=== PATIENT | female | born 1950 | race Caucasian/White ===

== ENCOUNTER → 2021-08-28 11:44 | Outpatient (BNVA) | payer MEDICARE, OTHER, SELFPAY | PROVIDERS: Visit Provider Surgery | DX: Z20.822 Contact with and (suspected) exposure to COVID-19 (principal); Z11.52 Encounter for screening for COVID-19 | CPT/HCPCS: 87635 ==

== ENCOUNTER → 2021-10-09 08:06 | Outpatient (BNVA) | payer MEDICARE, OTHER, SELFPAY | PROVIDERS: Referring Provider Dermatology; Visit Provider Surgery | DX: K64.9 Unspecified hemorrhoids (principal); K92.1 Melena; F17.210 Nicotine dependence, cigarettes, uncomplicated | CPT/HCPCS: 99214 ==

== ENCOUNTER 2021-10-15 07:18 | Day surgery (SDC) | payer MEDICARE, OTHER, SELFPAY ==
[2021-10-14 11:26] VITALS: BMI 22.0
[2021-10-15] VITALS (7 sets, daily range): BP systolic 82–131; BP diastolic 58–87; PULSE 77–87; RESP 16–22; TEMP 36.2–36.7; O2SAT 94–100
[2021-10-15] MEDS: sodium chloride 0.9% 1,000 ML 30 ML IV (08:17)
--- NOTE | 2021-10-15 08:20 | ANES.PREANE2 ---
Pre-Anesthetic Assessment Height/Weight: Height 1.73 m Weight 65.771 kg Temp Pulse Resp BP Pulse Ox 97.2 F L 87 18 117/69 96 10/15/21 07:55 10/15/21 07:55 10/15/21 07:55 10/15/21 07:55 10/15/21 07:55 Preop Diagnosis: Hemorrhoids Operation Date: 10/15/21 09:05 Proposed Procedures p Hemorroidectomy 41688/k64.9(Not Applicable) - Shay Yang MD Familial anesthetic complications: None Was Beta Betito taken within 24 hours: N/A Was Clonidine taken within 24 hours: N/A Last intake: Intake Last Liquid Date 10/14/21 Last Liquid Time 19:00 Last Solid Date 10/14/21 Last Solid Time 17:00 Social No alcohol and No tobacco Exam alert, oriented x 3, clear to auscultation bilaterally and regular rate & rhythm Airway Mallampati: Class II Dentition: full Pulmonary None reported CV/HEM Hypertension None reported Hepatic None reported GI None reported Metabolic None reported Musc/skel R shoulder recently pinned, so unable to lay R side down during procedure per patient report Neuropsych None reported Anesthetic Plan ASA status: 2 Anesthesia: General Risk of > 500 ml blood loss (7ml/kg in children): No Medications/Allergies Home Medications Medication Instructions Recorded Confirmed Last Taken Type amlodipine 5 mg tablet 5 mg PO DAILY 08/04/21 10/14/21 09/30/21 History Allergies Allergy/AdvReac Type Severity Reaction Status Date / Time shellfish derived Allergy Unknown Unknown Verified 10/14/21 11:25 Penicillins Allergy Unknown Verified 10/14/21 11:25 Current Medications Generic Name Dose Route Start Last Admin Trade Name Freq PRN Reason Stop Dose Admin Sodium Chloride 1,000 mls @ 30 mls/hr 10/15/21 07:30 10/15/21 08:17 Sodium Chloride 0.9% IV 10/16/21 07:29 30 mls/hr .Q24H JACKIE Administration PFSH Anesthesia Medical History Hypertension Surgical History History of colonoscopy History of open reduction and internal fixation (ORIF) procedure right shoulder Social History Smoking and tobacco status: current some day smoker Data Anesthesia Cardiac Studies: No Data to Display
--- NOTE | 2021-10-15 08:42 | P.HP_ITS ---
Same Day Surgery H&P Indication for Procedure/HPI DATE OF PROCEDURE: October 15, 2021 CHIEF COMPLAINT/INDICATIONFOR SURGICAL PROCEDURE: Hemorrhoidectomy PREOP DIAGNOSIS: Hemorrhoids PLANNED PROCEDURE: Operation Date: 10/15/21 09:05 Proposed Procedures p Hemorroidectomy 86724/k64.9(Not Applicable) - Shay Yang MD Medications/Allergies* Home Medications Medication Instructions Recorded Confirmed Type amlodipine 5 mg tablet 5 mg PO DAILY 08/04/21 10/14/21 History Allergies/Adverse Reactions Allergy/AdvReac Type Severity Reaction Status Date / Time shellfish derived Allergy Unknown Unknown Verified 10/14/21 11:25 Penicillins Allergy Unknown Verified 10/14/21 11:25 Current Medications: Generic Name Dose Route Start Last Admin Trade Name Freq PRN Reason Stop Dose Admin Sodium Chloride 1,000 mls @ 30 mls/hr 10/15/21 07:30 10/15/21 08:17 Sodium Chloride 0.9% IV 10/16/21 07:29 30 mls/hr .Q24H JACKIE Administration Pertinent History/Comorbid Conditions* Medical History (Updated 08/04/21 @ 15:00 by Shay Yang MD) Hypertension Surgical History (Updated 10/09/21 @ 08:27 by Shay Yang MD) History of colonoscopy History of open reduction and internal fixation (ORIF) procedure right shoulder Social History Smoking and tobacco status: current some day smoker Pertinent Exam Findings alert, oriented x 3 and regular rate & rhythm Recommendations Surgery/Procedure today Coding Level of Care Code Acute First Officer And Flight Instructor for Jasson Pastrana
[2021-10-15] MEDS: Fleet Enema 133 mL Enema PR (09:00)
[2021-10-15] MEDS: ciprofloxacin 400 MG/200 ML PREMIX 200 MG IV (10:23)
--- NOTE | 2021-10-15 11:18 | PM.OP ---
Operative Report Date of procedure: October 15, 2021 Pre-op diagnosis: Hemorrhoids Post-op diagnosis: Grade 3 hemorrhoids Procedure done: Hemorrhoidectomy x2 Specimens removed/disposition: Hemorrhoidal columns from the right lateral and left lateral location Surgeon: Shay Yang Anesthesia: General Condition: stable Disposition: PACU Brief History: This is 71-year-old female who had an episode of severe hematochezia on 2 occasions with need for hospitalization and transfer to [place] on the second episode. Patient had a colonoscopy at that point and the bleeding was attributed to her hemorrhoids. On rectal exam in the office patient had decreased anal tone and I did discuss concerns about potentially developing incontinence in the future after hemorrhoidectomy Procedure: The patient was taken to the operating room and intubated under general anesthesia after IV antibiotic had been administered and placed in a prone jackknife position. The buttocks were taped apart. The perineum was prepped and draped in a sterile manner. A perianal block was performed using 10 cc of Exparel mixed with 10 cc of 0.5% Marcaine mixed with 10 cc of saline. Anoscope was introduced to examine the rectum and anal canal and 2 hemorrhoid pedicles were identified. The pedicle on the right side was grasped and the plane identified superficial to the internal sphincter muscle and internal hemorrhoids were excised with an energy device. The pedicle on the left side was grasped with Allis clamps and the plane was identified superficial to the internal sphincter muscle and the internal hemorrhoids were excised with an energy device. Hemostasis was ensured and a Adaptic gauze soaked in Vaseline was placed within the anal canal. Dressings were applied and the patient was extubated and transferred to recovery room in stable condition.
[2021-10-15] MEDS: HYDROcodone-acetaminophen 5-325 mg Tablet 1 TAB PO (11:32)
--- NOTE | 2021-10-15 13:23 | ANE.PACU2 ---
Inpatient post-anesthesia follow up: Airway intact: Yes Vital signs: Temperature 97.9 F Pulse Rate 79 Respiratory Rate 17 Blood Pressure 105/65 Pulse Oximetry 94 Oxygen Delivery Me thod Room Air Oxygen Flow Rate Fraction of Inspir ed Oxygen Hydration adequate: Yes Nausea and vomiting: No Pain level: 2 Mental status: Baseline
== END 2021-10-15 12:10 | disposition home or self-care (01) ==
PROVIDERS: Visit Provider Surgery
PROC: (CPT 46260; principal; 2021-10-15 09:05)
DX: K64.2 Third degree hemorrhoids (principal); I10 Essential (primary) hypertension; F17.210 Nicotine dependence, cigarettes, uncomplicated
CPT/HCPCS: 46260; 88304; C9290; J0330; J0744; J1100; J2370; J2405; J2704; J2710; J3010; J3490; J7030

== ENCOUNTER 2021-10-24 21:49 | Inpatient (IN) | payer MEDICARE, OTHER, SELFPAY ==
[2021-10-24 21:52] VITALS: BP 121/74; PULSE 87; RESP 20; TEMP 37.2; O2SAT 95; BMI 22.5
[2021-10-24 21:58] VITALS: BP 119/68; PULSE 91; RESP 27; O2SAT 96
--- NOTE | 2021-10-24 22:22 | ECG_ITS ---
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 Measurements Intervals [place] Rate: 89 P: 52 RI: 116 QRS: -30 QRSD: 96 T: 45 QT: 358 QTc: 438 Interpretive Statements SINUS RHYTHM WITH SHORT RI INTERVAL WITH OCCASIONAL VENTRICULAR PREMATURE COMPLEXES POSSIBLE LEFT ATRIAL ENLARGEMENT [-0.1mV P-WAVE IN V1/V2] BORDERLINE LEFT AXIS DEVIATION [QRS AXIS < -20] POSSIBLE RIGHT VENTRICULAR CONDUCTION DELAY [RSR (QR) IN V1/V2] No previous ECG available for comparison Electronically Signed On 10-25-2021 19:27:48 CDT by Joshua Capps M.D. [id number]
--- NOTE | 2021-10-24 22:22 | CTR_ITS ---
PROCEDURE INFORMATION: Exam: CT Head Without Contrast Exam date and time: 10/24/2021 10:43 PM Age: 71 years old Clinical indication: Weakness, extremity and weakness, facial; Right; Patient HX: 3 x transient episodes of facial droop rue weakness and confusion; Additional info: Symptoms of acute stroke TECHNIQUE: Imaging protocol: Computed tomography of the head without contrast. Radiation optimization: All CT scans at this facility use at least one of these dose optimization techniques: automated exposure control; mA and/or kV adjustment per patient size (includes targeted exams where dose is matched to clinical indication); or iterative reconstruction. COMPARISON: No relevant prior studies available. RADIATION DOSE METRICS: Total DLP (mGy-cm): 804.86 FINDINGS: Brain: Mild hypodense changes are noted in the bilateral periventricular regions, likely related to chronic microvascular ischemic disease. There is mild brain parenchymal atrophy. No acute intracranial hemorrhage, mass effect or midline shift. Cerebral ventricles: No pathologic ventricular dilatation. Paranasal sinuses: Minimal mucosal thickening left sphenoid sinus. Mastoid air cells: Visualized mastoid air cells are well aerated. Bones/joints: Unremarkable. No acute fracture. Soft tissues: Unremarkable. CT/CT head wo con* [id number] IMPRESSION: 1. No acute intracranial findings. 2. If there is a strong clinical concern for acute ischemia/infarct, short interval follow-up or MRI/diffusion imaging correlation may also be considered.
[2021-10-24 22:28] VITALS: BP 96/61; PULSE 88; RESP 28; O2SAT 96
--- NOTE | 2021-10-24 22:30 | ECG_ITS ---
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 Measurements Intervals [place] Rate: 84 P: 59 LA: 116 QRS: -33 QRSD: 101 T: 26 QT: 386 QTc: 458 Interpretive Statements SINUS RHYTHM WITH SHORT LA INTERVAL POSSIBLE LEFT ATRIAL ENLARGEMENT [-0.1mV P-WAVE IN V1/V2] LEFT AXIS DEVIATION [QRS AXIS < -30] INCOMPLETE RIGHT BUNDLE BRANCH BLOCK [90+ ms QRS DURATION, TERMINAL R IN V1/V2, 40+ ms S IN I/aVL/V4/V5/V6] MINIMAL ST DEPRESSION [0.025+ mV ST DEPRESSION] Compared to ECG 10/25/2021 00:25:52 Short LA interval now present Incomplete right bundle-branch block now present ST (T wave) deviation now present Ventricular premature complex(es) no longer present Electronically Signed On 10-25-2021 19:27:31 CDT by Joshua Capps M.D. [id number]
[2021-10-24 22:39] LABS: Basophils # 0.1 10^3/uL (0.0-0.1); Basophils % 0.8 %; Eosinophils # 0.1 10^3/uL (0.0-0.8); Eosinophils % 0.7 %; Hematocrit 27.3 % (37.0-47.0); Hemoglobin 8.2 g/dL (11.5-15.3); Lymphocytes # 2.1 10^3/uL (0.8-4.8); Lymphocytes % 15.4 %; Mean Corpuscular Hemoglobin 24.6 pg (28.0-34.0); Mean Platelet Volume 8.8 fL (7.4-10.4); Monocytes # 1.4 10^3/uL (0.2-0.9); Monocytes % 10.2 %; Neutrophils # 10.01 10^3/uL (1.8-7.7); Neutrophils % 72.2 %; Nucleated Red Blood Cells % 0 %; Platelet Count 528 10^3/cmm (130-400); Red Blood Count 3.33 10^6/uL (4.1-5.3); Red Cell Distribution Width 17.4 % (12.1-15.1); White Blood Count 13.8 10^3/uL (4.0-10.0)
[2021-10-24 22:40] LABS: Glucose Point of Care 122 mg/dL (70-110)
--- NOTE | 2021-10-24 22:40 | ED_ITS ---
Documented by User: DAVIS Winter 10/24/21 22:44 HPI - Neuro Symptoms/Deficit General: Chief Complaint: Neuro Symptoms/Deficit Stated Complaint: thought had stroke earlier Time Seen by Provider: 10/24/21 22:30 History of Present Illness: Patient is 1439 an episode of facial drooping right side and unable to use right arm. This lasted a couple minutes. Is about 30 minutes later she had episode where she was just babbling and able to understand her speech and this lasted for about a minute. Then went to bed later that evening woke up diaphoretic and rapid heart rate and pale and this was about 30 minutes ago. No neurological symptoms that time. Patient recently had a hemorrhoidectomy a week and a half ago. Before that she did bleed out and had a hemoglobin of 6 and recently received a unit of blood about 3 weeks ago. Fractured humerus about a month and a half ago. Currently takes amlodipine for high blood pressure. Patient presents without any deficits presently. Associated symptoms: Deny chest pain, headache(s), nausea or vomiting Review of Systems Narrative: Woke with diaphoresis, pale and rapid heart rate this evening about 2200. Patient early in afternoon at 1630 had an episode of right arm numbness and right facial drooping that lasted briefly. And then at 1700 had short amount of time just babbling. Const: Denies: fever(s), chills or body aches Eyes: Denies: eye discomfort ENMT: Denies: throat pain Card: Denies: chest pain Resp: Denies: dyspnea GI: Reports: other (Recent hemorrhoidectomy without any active bleeding since.); Denies: abdominal pain, nausea or vomiting Skin/Breast: Denies: rash Neuro: Reports: other (See narrative.); Denies: headache(s) Psych: Denies: depression or suicidal ideation [facility] ED PFSH: Medical History Hypertension Surgical History H/O hemorrhoidectomy (10/15/21) History of colonoscopy History of open reduction and internal fixation (ORIF) procedure right shoulder Social History Smoking and tobacco status: current some day smoker NIH stroke score NIHSS: Level Of Consciousness - 1a: 3 Level Of Consciousness Questions - 1b: Both Correct Level Of Consciousness Commands - 1c: Both Correct Best Gaze - 2: Normal Visual Martin - 3: No Visual Loss Facial Palsy - 4: Normal Motor Arm Right - 5: No Drift Motor Arm Left - 5: No Drift Motor Leg Right - 6: No Drift Motor Leg Left - 6: No Drift Limb Ataxia - 7: Absent Sensory - 8: Normal Best Language - 9: No Aphasia Physical Exam Const: COMMON NORMALS: no acute distress, patient oriented x3 and alert HENMT: COMMON NORMALS: normocephalic and external ears normal HEAD & SCALP: normocephalic EXTERNAL EAR: Yes external ears normal Eye: COMMON NORMALS: EOMs intact bilaterally Neck/C-Spine: COMMON NORMALS: no JVD Resp: COMMON NORMALS: normal respiratory effort and No use of accessory muscles Cardio: COMMON NORMALS: no JVD GI: INSPECTION: Yes normal to inspection Extremity: COMMON NORMALS: normal to inspection and full ROM Neuro: COMMON NORMALS: patient oriented x3 SENSORIUM/ORIENTATION: Yes alert OTHER: See NIH SS scale that was completed Psych: COMMON NORMALS: mental status grossly normal Skin: COMMON NORMALS: no rashes or lesions noted GENERAL SKIN EXAM: no rashes or lesions noted Course Vital Signs: Vital signs: Vital Signs Temperature 99.0 F 10/24/21 21:52 Pulse Rate 86 10/25/21 00:00 Respiratory Rate 18 10/25/21 00:00 Blood Pressure 109/67 10/25/21 00:00 Pulse Oximetry 97 10/25/21 00:00 MDM - Neuro Symptoms/Deficit Lab Data : 10/24/21 22:11 10/24/21 22:[address] 10/24/21 22:22 IMPRESSION: 1. No acute intracranial findings. 2. If there is a strong clinical concern for acute ischemia/infarct, short interval follow-up or MRI/diffusion imaging correlation may also be considered. Chest X-Ray 10/24/21 23:10 IMPRESSION: 1. Cardiomegaly and mild pulmonary vascular congestion. 2. Bilateral mid to lower lung field right greater left ground-glass airspace infiltrates. Laboratory Results WBC 13.8 10^3/uL (4.0-10.0) H 10/24/21 22:11 RBC 3.33 10^6/uL (4.1-5.3) L 10/24/21 22:11 Hgb 8.2 g/dL (11.5-15.3) L 10/24/21 22:11 Hct 27.3 % (37.0-47.0) L 10/24/21 22:11 MCV 82.0 fl (81-99) 10/24/21 22:11 MCH 24.6 pg (28.0-34.0) L 10/24/21 22:11 MCHC 30.0 g/dL (30.0-36.0) 10/24/21 22:11 RDW 17.4 % (12.1-15.1) H 10/24/21 22:11 Plt Count 528 10^3/cmm (130-400) H 10/24/21 22:11 MPV 8.8 fL (7.4-10.4) 10/24/21 22:11 Neut % (Auto) 72.2 % 10/24/21 22:11 Lymph % (Auto) 15.4 % 10/24/21 22:11 [place] % (Auto) 10.2 % 10/24/21 22:11 Eos % (Auto) 0.7 % 10/24/21 22:11 Baso % (Auto) 0.8 % 10/24/21 22:11 Neut # (Auto) 10.01 10^3/uL (1.8-7.7) H 10/24/21 22:11 Lymph # (Auto) 2.1 10^3/uL (0.8-4.8) 10/24/21 22:11 [place] # (Auto) 1.4 10^3/uL (0.2-0.9) H 10/24/21 22:11 Eos # (Auto) 0.1 10^3/uL (0.0-0.8) 10/24/21 22:11 Baso # (Auto) 0.1 10^3/uL (0.0-0.1) 10/24/21 22:11 Nucleated RBC % (auto) 0 % 10/24/21 22:11 Nucleated RBCs # 0.0 /100WBC 10/24/21 22:11 PT 13.70 SECONDS (12.1-14.9) 10/24/21 22:11 INR 1.02 (0.8-1.2) 10/24/21 22:11 APTT 30.6 SECONDS (23.9-36.7) 10/24/21 22:11 D-Dimer 3.52 ug/mIFEU (0-0.59) H 10/24/21 22:11 Sodium 127 mmol/L (136-145) L 10/24/21 22:11 Potassium 3.6 mmol/L (3.5-5.1) 10/24/21 22:11 Chloride 95 mmol/L (98-107) L 10/24/21 22:11 Carbon Dioxide 21 mmol/L (22-29) L 10/24/21 22:11 Anion Gap 14.6 (5-19) 10/24/21 22:11 BUN 13 mg/dL (8-23) 10/24/21 22:11 Creatinine 0.8 mg/dL (0.5-0.9) 10/24/21 22:11 GFR Calculation Not Reportable 10/24/21 22:11 Glucose 120 mg/dL (65-115) H 10/24/21 22:11 POC Glucose 122 mg/dL (70-110) H 10/24/21 22:36 Calculated Osmolality 265 mOsm/kg (285-295) L 10/24/21 22:11 Calcium 8.5 mg/dL (8.5-10.5) 10/24/21 22:11 Total Bilirubin 0.3 mg/dL (0.15-1.2) 10/24/21 22:11 AST 198 U/L (0-32) H 10/24/21 22:11 ALT 159 U/L (0-33) H 10/24/21 22:11 Alkaline Phosphatase 154 IU/L (35-105) H 10/24/21 22:11 Troponin T Baseline 809 ng/L (0-10) H* 10/24/21 22:11 NT-Pro-B Natriuret Pep 3674 pg/mL (0-125) H 10/24/21 22:11 Total Protein 7.5 g/dL (6.6-8.7) 10/24/21 22:11 Albumin 3.8 g/dL (3.5-5.2) 10/24/21 22:11 Globulin 3.7 g/dL (1.3-4.6) 10/24/21 22:11 Blood Type A Positive 10/24/21 00:00 Rho(D) Type Positive 10/24/21 00:00 Discharge Plan Discharge Patient Disposition: Admitted As Inpatient Admit Provider: Neena Lai Clinical Impression: Anemia, Elevated troponin, Brain TIA Coding Level of Care Code ED Cardiopulmonary Technologist Chief for Chg Fwd Exam Comprehensive Documented by User: Ezra Mack, 10/25/21 00:51 HPI - Neuro Symptoms/Deficit General: Chief Complaint: Neuro Symptoms/Deficit Stated Complaint: thought had stroke earlier Time Seen by Provider: 10/24/21 22:30 [facility] ED PFSH: Medical History Hypertension Surgical History H/O hemorrhoidectomy (10/15/21) History of colonoscopy History of open reduction and internal fixation (ORIF) procedure right shoulder Social History Smoking and tobacco status: current some day smoker Course Consultations: Consultation #1: kristal Vital Signs: Vital signs: Vital Signs Temperature 99.0 F 10/24/21 21:52 Pulse Rate 86 10/25/21 00:00 Respiratory Rate 18 10/25/21 00:00 Blood Pressure 109/67 10/25/21 00:00 Pulse Oximetry 97 10/25/21 00:00 MDM - Neuro Symptoms/Deficit Medical Decision Making This patient was originally seen by DAVIS Torres.? I agree with his histor y, evaluation, and treatment. I have evaluated the patient as well. This patient is neurologically intact currently. No signs of weakness, dizziness, or aphasia. She never complained of chest pain. She did complain of shortness of breath, which has essentially resolved. Her hemoglobin is 8.2. It was down to 6 before she was transfused prior to her hemorrhoidectomy. White blood cell count is 13.8, platelets 528, likely rebound reaction of bone marrow. Sodium 127, troponin is 809 this is with a normal creatinine of 0.[address] changes on EKG. Her D-dimer is significantly elevated. Chest x-ray shows some pulmonary vascular congestion/edema. CTA of the chest has been ordered, along with CTA of the brain and neck. She will be admitted for further work-up including repeat troponin etc. For now, Lovenox has not been ordered due to anemia, and history of bleeding, etc. Lab Data : 10/24/21 22:11 10/24/21 22:[address] 10/24/21 22:22 IMPRESSION: 1. No acute intracranial findings. 2. If there is a strong clinical concern for acute ischemia/infarct, short interval follow-up or MRI/diffusion imaging correlation may also be considered. Chest X-Ray 10/24/21 23:10
[2021-10-24 22:54] LABS: Alanine Aminotransferase 159 U/L (0-33); Albumin Level 3.8 g/dL (3.5-5.2); Alkaline Phosphatase 154 IU/L (35-105); Anion Gap 14.6 (5-19); Aspartate Amino Transferase 198 U/L (0-32); Blood Urea Nitrogen 13 mg/dL (8-23); Calcium 8.5 mg/dL (8.5-10.5); Carbon Dioxide 21 mmol/L (22-29); Chloride 95 mmol/L (98-107); Globulin 3.7 g/dL (1.3-4.6); Glucose 120 mg/dL (65-115); Osmolality Calculated 265 mOsm/kg (285-295); Potassium 3.6 mmol/L (3.5-5.1); Sodium 127 mmol/L (136-145); Total Bilirubin 0.3 mg/dL (0.15-1.2); Total Protein 7.5 g/dL (6.6-8.7)
[2021-10-24 22:58] VITALS: BP 122/67; PULSE 84; RESP 22; O2SAT 95
[2021-10-24 23:00] LABS: INR 1.02 (0.8-1.2); Partial Thromboplastin Time 30.6 SECONDS (23.9-36.7)
[2021-10-24 23:04] LABS: Troponin(5th) Baseline 809 ng/L (0-10)
--- NOTE | 2021-10-24 23:10 | XRR_ITS ---
PROCEDURE INFORMATION: Exam: XR Chest Exam date and time: 10/24/2021 11:33 PM Age: 71 years old Clinical indication: Dyspnea; Additional info: SOB TECHNIQUE: Imaging protocol: XR of the chest. Views: 1 view. COMPARISON: No relevant prior studies available. FINDINGS: Lungs: Bilateral mid to lower lung field right greater left ground-glass airspace infiltrates. Pleural spaces: Unremarkable. No pleural effusion. No pneumothorax. Heart/Mediastinum: Cardiomegaly and mild pulmonary vascular congestion. Bones/joints: Unremarkable. XR/XR chest 1V portable [id number] IMPRESSION: 1. Cardiomegaly and mild pulmonary vascular congestion. 2. Bilateral mid to lower lung field right greater left ground-glass airspace infiltrates.
[2021-10-24 23:30] VITALS: BP 118/74; PULSE 86; RESP 18; O2SAT 98
[2021-10-24 23:42] LABS: NT Pro B Type Natriuretic Pept 3674 pg/mL (0-125)
[2021-10-24 23:44] LABS: D Dimer 3.52 ug/mIFEU (0-0.59)
[2021-10-25] VITALS (14 sets, daily range): BP systolic 101–115; BP diastolic 57–74; PULSE 71–101; RESP 16–40; TEMP 36.4–36.7; O2SAT 95–100; BMI 22.5
[2021-10-25] MEDS: sodium chloride 0.9% 1,000 ML 75 ML IV (00:03)
--- NOTE | 2021-10-25 00:24 | PM.HP ---
Providers/Chief Complaint Chief Complaint: thought had stroke earlier History of Present Illness Miriam Courtney is a 71 year old female without significant past medical history presented today with chief complaint of strokelike symptoms. Around 4:30 PM her noticed that her face was deviating towards left side and she was not able to move her right arm this resolved within a minute. After 10 minutes when she was in the kitchen her noticed that she was not able to speak properly, speech was garbled, this resolved as well within a minute. Around 8:30 PM when she went to bed she woke up feeling very distressed, diaphoretic and experienced 1 brief episode of palpitation. This time her took her to the hospital for further evaluation. She did not experience any chest pain however endorsing midepigastric heartburn. No nausea, vomiting, shortness of breath, orthopnea or PND. No previous history of NC, CHF, coronary disease, stroke. Recently received blood transfusion for bleeding associated with hemorrhoids. Hemorrhoidectomy done by Dr. Yang. Hemoglobin has trickled down from 9-8 In the ER she has been diagnosed with NSTEMI high D-dimer requested CTA head neck and chest EKG without ischemic or infarctive changes, troponin significantly elevated 809 At the time of my evaluation there is no dysarthria, NIH 0, no focal deficit Patient is chest pain-free blood pressure 110/67 mmHg heart rate 84, sinus rhythm, she is saturating well on room air, not in any active distress Review of Systems Const: Denies: fever(s) or chills Eyes: Denies: change in vision ENMT: Denies: throat pain Card: Denies: chest pain Resp: Denies: dyspnea GI: Reports: heartburn; Denies: abdominal pain : Denies: flank pain Musc: Denies: neck pain Skin/Breast: Denies: rash Neuro: Reports: Slurred speech present Psych: Denies: anxiety Endo: Denies: polyuria Saturnino/Lymph: Denies: easy bruising All/Imm: Denies: urticaria Medications/Allergies Home Medications Medication Instructions Recorded Confirmed Last Taken Type amlodipine 5 mg tablet 5 mg PO DAILY 08/04/21 10/14/21 09/30/21 History hydrocodone 5 mg-acetaminophen 325 1 tab PO Q6H PRN #20 tab 10/15/21 Unknown Rx mg tablet lactulose 10 gram/15 mL oral 15 ml PO BID #237 ml 10/15/21 Unknown Rx solution Allergies Allergy/AdvReac Type Severity Reaction Status Date / Time shellfish derived Allergy Unknown Unknown Verified 10/24/21 21:58 Penicillins Allergy Unknown Verified 10/24/21 21:58 PFSH Acute PFSH: Medical History Hypertension Surgical History H/O hemorrhoidectomy (10/15/21) History of colonoscopy History of open reduction and internal fixation (ORIF) procedure right shoulder Family History Sister CAD (coronary artery disease) Artery disease NC at age 65 Social History Smoking and tobacco status: current some day smoker Substance/Drug Use: never Household members: spouse Housing: House Vitals/I&O/Wt Last Vital Signs Temp 99.0 F 10/24/21 21:52 Pulse 84 10/24/21 22:58 Resp 22 H 10/24/21 22:58 BP 122/67 10/24/21 22:58 Pulse Ox 95 10/24/21 22:58 Weight last 48 hrs Weight 67.132 kg Physical Exam Narrative: Very pleasant cooperative female No active chest pain Laying supine No orthopnea PND Saturating well on room air Abdomen distended nontender No signs of edema S1, S2 sinus rhythm no carotid bruit, no murmur appreciated No audible stridor or wheezing Nonfocal neuro exam NIH 0 EOMI, PERRLA No dysarthria Gait was not tested Data : 10/24/21 22:11 10/24/21 22:11 A&P Assessment and plan (1) Anemia: Status: Acute (2) Elevated troponin: Status: Acute (3) Brain TIA: Status: Acute (4) NSTEMI (non-ST elevated myocardial infarction): Status: Acute (5) Positive D dimer: Status: Acute (6) Elevated brain natriuretic peptide (BNP) level: Status: Acute Plan TIA ABCD 2 score is 2 Nonfocal neuro exam NIH 0 Patient is asymptomatic Requested CTA head and neck, CT head unremarkable Considering low NIH, I do not think MRI head would have significant merit for her treatment of TIA Check lipid profile, hemoglobin A1c Recent hemorrhoid bleed hemoglobin 8.2, judicious use of dual antiplatelet regimen, may only add Plavix for now and watch her hemoglobin PT evaluation in the morning Hyponatremia Patient looks euvolemic Check TSH, uric acid Serum and urine osmolarity She is not on any antidepressants Do not have previous sodium level to compare Will treat as chronic hyponatremia Would avoid IV fluids overnight and monitor sodium trend, not clear at the moment whether her neurological symptoms are related to hyponatremia solely NSTEMI Positive family history, Please consult cardiology in the morning, no urgent need for consultation overnight No active chest pain Complaining of mid epigastric heartburn GI cocktail, Protonix I will give her first dose of Lovenox monitor here hemoglobin if stays stable we will continue every 12 hours dose Added Plavix along atorvastatin, if blood pressure allows may add Toprol and lisinopril Echo in the morning to rule out wall motion abnormality High D-dimer Rule out PE, requested venous Doppler and CTA chest rule out PE No previous history of cancer mammogram colonoscopies unremarkable High BNP No active signs of/no clinical signs of heart failure We will follow-up with echo Rule out PE Will need extensive counseling on smoking cessation Admit as inpatient for NSTEMI work-up We will keep her n.p.o. in case she would require coronary angiogram in the morning, considering significant family history she might go for coronary angiogram N.p.o. 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
--- NOTE | 2021-10-25 00:28 | CTR_ITS ---
PROCEDURE INFORMATION: Exam: CT Angiography Head With Contrast, Arteriography Exam date and time: 10/25/2021 1:20 AM Age: 71 years old Clinical indication: Weakness and other: Aphasia; Additional info: Weakness, aphasia TECHNIQUE: Imaging protocol: Computed tomography angiography of the head with contrast. Exam focused on the arteries. 3D rendering (Not supervised by radiologist): MIP and/or 3D reconstructed images were created by the technologist. Radiation optimization: All CT scans at this facility use at least one of these dose optimization techniques: automated exposure control; mA and/or kV adjustment per patient size (includes targeted exams where dose is matched to clinical indication); or iterative reconstruction. Contrast material: OMNI 350; Contrast volume: 95 ml; Contrast route: INTRAVENOUS (IV); COMPARISON: CT head wo con* [id number] 10/24/2021 10:43 PM RADIATION DOSE METRICS: Total DLP (mGy-cm): 2290.78 FINDINGS: ANTERIOR CIRCULATION: Right internal carotid artery: Calcific plaque in the cavernous right ICA causing a minimal stenosis. No aneurysm. Right middle cerebral artery: No occlusion or significant stenosis. No aneurysm. Right anterior cerebral artery: No occlusion or significant stenosis. No aneurysm. Left internal carotid artery: Calcific plaque in the cavernous left ICA causing 2 moderate stenoses. No aneurysm. Left middle cerebral artery: No occlusion or significant stenosis. No aneurysm. Left anterior cerebral artery: No occlusion or significant stenosis. No aneurysm. POSTERIOR CIRCULATION: Right vertebral artery: Faint contrast in an apparent tiny right vertebral artery. Left vertebral artery: Prominent calcific plaque causing an 80-90% stenosis in the proximal left vertebral artery and an approximately 60% stenosis slightly more distally in this artery. Two minimal stenoses in the left vertebral artery distal to the takeoff of the patent left PICA. No aneurysm. Basilar artery: No occlusion or significant stenosis. No aneurysm. Right posterior cerebral artery: No occlusion or significant stenosis. No aneurysm. Left posterior cerebral artery: No occlusion or significant stenosis. No aneurysm. Left posterior communicating artery: Small posterior communicating artery bilaterally. Veins: Major venous sinuses patent. Brain: No abnormal enhancement in the brain. Cerebral ventricles: Unchanged. Bones/joints: 15 mm lytic mass in the right frontal bone. No other apparent bony mass. Mastoid air cells: Still no apparent mastoid disease. Soft tissues: Unremarkable. Paranasal sinuses: Continued slight mucosal thickening in a few sinuses. Still no air-fluid levels. PROCEDURE INFORMATION: Exam: CT Angiography Neck With Contrast Exam date and time: 10/25/2021 1:20 AM Age: 71 years old Clinical indication: Weakness and other: Aphasia; Additional info: Weakness, aphasia TECHNIQUE: Imaging protocol: Computed tomography angiography of the neck with contrast. 3D rendering (Not supervised by radiologist): MIP and/or 3D reconstructed images were created by the technologist. Radiation optimization: All CT scans at this facility use at least one of these dose optimization techniques: automated exposure control; mA and/or kV adjustment per patient size (includes targeted exams where dose is matched to clinical indication); or iterative reconstruction. Contrast material: OMNI 350; Contrast volume: 95 ml; Contrast route: INTRAVENOUS (IV); COMPARISON: CT head wo con* [id number] 10/24/2021 10:43 PM RADIATION DOSE METRICS: Total DLP (mGy-cm): 2290.78 FINDINGS: Right common carotid artery: No stenosis. No dissection or occlusion. Right internal carotid artery: Calcific plaque causing an approximately 80% stenosis of the origin of the right internal carotid artery and a 60-70% stenosis a short distance superiorly in this artery. Right external carotid artery: Mild stenosis of the origin of the right ECA. Left common carotid artery: Probable minimal stenosis of the origin of the left common carotid artery despite motion artifact. No significant stenosis elsewhere in this artery. Left internal carotid artery: Approximately 80% stenosis of the origin of the left ICA. Left external carotid artery: Mild stenosis of the origin of the left ECA. Right vertebral artery: No normal right vertebral artery. Slight enhancement in a tiny right vertebral artery or collateral vessel extending superiorly in the foramina from the C4-C5 level to the C2 level. Left vertebral artery: Two mild stenoses in the proximal left vertebral artery. Mild stenosis in this artery at the C6-C7 level, also. Scattered calcific plaque throughout this artery. Epiglottis: Density of 80 HU in the 14 x 10 mm mass anterior to the left epiglottis indenting the laryngeal vestibule. Soft tissues: No significant soft tissue swelling. Bones/joints: Old slight anterior wedging of T3 and T4. Slight spondylolisthesis at C3-C4 through C5-C6 and C7-T1. Prominent C6-C7 disc degeneration and a somewhat less disc narrowing at C4-C5 and C5-C6. Shallow central focal disc protrusion at C3-C4 causing no significant canal stenosis. Questionable annular bulging or a shallow central focal disc protrusion at C4-C5 causing no significant canal stenosis. Small central focal disc protrusion and probable annular bulging at C5-C6 causing mild canal stenosis. Lungs: Numerous centrilobular and paraseptal blebs in the upper lungs. Increased interstitial markings in both lung apices. Two 3 mm noncalcified adjacent nodules in the right lung apex. CT/CT angio headneck* [id number] IMPRESSION: 1. Faint contrast in an apparent tiny right vertebral artery. Two prominent stenoses in the left vertebral artery. Two moderate stenoses in the left ICA. Other stenoses detailed above. 2. 15 mm lytic mass in the right frontal bone. IMPRESSION: 1. No normal right vertebral artery consistent with occlusion of at least its proximal aspect. Questionable enhancement in a tiny right vertebral artery or collateral vessel in the upper cervical spine. Multiple mild stenoses in the left vertebral artery. 2. Approximately 80% and 60-70% stenoses in the proximal right ICA. Approximately 80% stenosis of the origin of the left ICA as well. 3. Mass anterior to the left epiglottis, cause unclear. 4. Emphysema. Increased interstitial markings in both lung apices such that pulmonary edema not excluded. Two 3 mm nodules in the right lung apex. For patients at low risk (minimal or absent history of smoking and of other known risk factors), no routine follow-up is indicated. For patients at high risk (history of smoking or of other known risk factors), consider optional CT Chest at 12 months. (Reference: Austen) 5. Chronic spinal disease detailed above. REFERENCES: 1. [place]en H, et al. Guidelines for Management of Incidental Pulmonary Nodules Detected on CT Images: From the Fleischner Society 2017. Radiology. 2017;284(1):228-243. 2. NASCET CRITERIA. The degree of internal carotid artery stenosis is based on NASCET criteria. Normal is no stenosis. Mild is less than 50% stenosis. Moderate is 50-69% stenosis. Severe is 70% to 99% stenosis. Total occlusion is no detectable patent lumen.
--- NOTE | 2021-10-25 00:28 | CTR_ITS ---
PROCEDURE INFORMATION: Exam: CTA Chest With Contrast Exam date and time: 10/25/2021 1:24 AM Age: 71 years old Clinical indication: Abnormal findings; Abnormal diagnostic tests; Elevated d-dimer; Dyspnea; Additional info: SOB, elevated d dimer, per kristal TECHNIQUE: Imaging protocol: Computed tomographic angiography of the chest with contrast. 3D rendering (Not supervised by radiologist): MIP and/or 3D reconstructed images were created by the technologist. Radiation optimization: All CT scans at this facility use at least one of these dose optimization techniques: automated exposure control; mA and/or kV adjustment per patient size (includes targeted exams where dose is matched to clinical indication); or iterative reconstruction. Contrast material: OMNI 350; Contrast volume: 75 ml; Contrast route: INTRAVENOUS (IV); COMPARISON: CR (CHEST, ) 10/24/2021 11:33 PM RADIATION DOSE METRICS: Total DLP (mGy-cm): 596.75 FINDINGS: Pulmonary arteries: Pulmonary emboli noted in a right middle lobe segmental pulmonary artery (series 2, image 264), a right lower lobe segmental pulmonary artery (series 2, image 304), and a left lower lobe segmental pulmonary artery (series 2, image 23). Aorta: No thoracic aortic aneurysm. Partially visualized abdominal aortic aneurysm measuring 4.1 cm x 3.3 cm on series 2, image 532. Lungs: Marked emphysematous changes of both lungs. Small calcified granuloma in the right lower lobe medially. Mild patchy atelectasis scattered throughout both lungs (primarily peripherally). Pleural spaces: No pneumothorax or pleural effusion. Heart: Heart size within normal limits. Right ventricle / left ventricle ratio is approximately 0.9, within normal limits (no right heart strain pattern). Lymph nodes: No enlarged or abnormal appearing mediastinal/hilar lymph nodes identified. Bones/joints: Prominent Schmorl's node in the superior endplate of L1. Metallic hardware noted in the right proximal humerus. Soft tissues: Unremarkable. Other findings: Images of the upper abdomen were reviewed. Diffuse fatty infiltration of the liver. There is a 1 cm hypodensity in the left hepatic lobe on series 2, image 370, etiology indeterminate (possibly a cyst). There is a 0.8 cm probable cyst in the right mid kidney on series 2, image 493. There is a 3.3 cm probable cyst in the left mid kidney. There is a 2.3 cm x 2.0 cm wedge-shaped hypodensity in the left kidney upper pole on series 2, image 170, consistent with a renal infarct. CT/CT angio chest PE protcl [id number] IMPRESSION: 1. Pulmonary emboli noted in a right middle lobe segmental pulmonary artery, right lower lobe segmental pulmonary artery, and a left lower lobe segmental pulmonary artery. 2. 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 3. Partially visualized abdominal aortic aneurysm measuring 4.1 cm x 3.3 cm. COMMENTS: Consistent with the [place] [employer]'s Incidental Findings Committee white paper (J Am Tiffany Radiol 2018): Any incidental renal lesion less than 1 cm or classified as too small to characterize, or any incidental cystic renal lesion characterized as simple-appearing, is likely benign. No follow-up imaging is recommended for these lesions per consensus recommendations based on imaging criteria.
--- NOTE | 2021-10-25 00:30 | ECG_ITS ---
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 Measurements Intervals [place] Rate: 84 P: 51 LA: 120 QRS: -22 QRSD: 89 T: 44 QT: 367 QTc: 434 Interpretive Statements SINUS RHYTHM WITH OCCASIONAL VENTRICULAR PREMATURE COMPLEXES POSSIBLE LEFT ATRIAL ENLARGEMENT [-0.1mV P-WAVE IN V1/V2] BORDERLINE LEFT AXIS DEVIATION [QRS AXIS < -20] POSSIBLE RIGHT VENTRICULAR CONDUCTION DELAY [RSR (QR) IN V1/V2] Compared to ECG 10/24/2021 22:32:40 Short LA interval no longer present Electronically Signed On 10-25-2021 19:34:03 CDT by Joshua Capps M.D. [id number]
--- NOTE | 2021-10-25 00:39 | USCV_ITS ---
Miriam Courtney Age: 71 Gender: F : 1950 Exam Date: 10/25/2021 03:15 Ordering Phys: Neena Lai MD Technologist: Ron Smith Exam Location: [facility] Indication: nstemi BP: 112 / 74 HR: 83 Rhythm: Sinus Technical Quality: Adequate MEASUREMENTS (Male / Female) Normal Values 2D ECHO LV Diastolic Diameter PLAX 3.9 cm 4.2 - 5.9 / 3.9 - 5.3 cm LV Systolic Diameter PLAX 3.1 cm IVS Diastolic Thickness 1.4 cm 0.6 - 1.0 / 0.6 - 0.9 cm IVS Systolic Thickness 1.3 cm LVPW Diastolic Thickness 1.6 cm 0.6 - 1.0 / 0.6 - 0.9 cm LVPW Systolic Thickness 1.5 cm LVOT Diameter 2.0 cm LV Ejection Fraction 2D Teich 28.1 % LV Ejection Fraction MOD 2C 63.6 % LV Ejection Fraction 2C AL 65.3 % LA Diameter 2.4 cm LA Width 4.6 cm LA Height 5.0 cm RA Width 3.0 cm RA Height 4.5 cm Aorta at Sinotubular Diameter 2.6 cm M-MODE Aortic Annulus Diameter 3.1 cm LA Ao Ratio MM 0.9 MV E Point Septal Separation 0.4 cm DOPPLER AV Peak Velocity 150.3 cm/s LVOT Peak Velocity 96.3 cm/s AV Area Cont Eq vti 2.3 cm squared AV Area Cont Eq pk 2.1 cm squared MV Area PHT 4.9 cm squared Mitral E to A Ratio 3.4 MV E' Velocity 90.0 cm/s Mitral E to MV E' Ratio 14.4 Mitral E to LV E' Lateral Ratio 13.2 Mitral E to LV E' Septal Ratio 16.1 Right Atrial Pressure 3.0 mmHg PV Peak Velocity 114.0 cm/s FINDINGS Left Ventricle Normal left ventricular size. LV systolic function is normal with EF of 55-60%. No regional wall motion abnormalities Right Ventricle The right ventricle is normal in size and function. Right Atrium The right atrium is normal in size. Left Atrium The left atrium is normal in size. Mitral Valve Mild mitral annular calcification without significant stenosis or prolapse. There is moderate mitral regurgitation. Aortic Valve Structurally normal aortic valve without significant sclerosis or stenosis. There is no aortic regurgitation. Tricuspid Valve Structurally normal tricuspid valve without significant stenosis. Trace tricuspid regurgitation. Pulmonary artery systolic pressure is normal. Pulmonic Valve Structurally normal pulmonic valve without significant stenosis. There is no pulmonic regurgitation. Pericardium Normal pericardium without effusion. Aorta Normal ascending aorta dimension. CONCLUSIONS LV systolic function is normal with EF of 55-60% Mild mitral annular calcification. Moderate mitral regurgitation Trace tricuspid regurgitation No comparison studies are available Joshua Capps MD (Electronically Signed) Final Date: 25 October 2021 12:27 S
[2021-10-25] MEDS: iodixanol 320 mg/mL 100mL Btl IV ×2 (01:21→01:35)
[2021-10-25 01:30] LABS: Troponin 5 2HR 694.3 ng/L (0-10)
--- NOTE | 2021-10-25 01:47 | PC.NURSE ---
Pt was in transport to floor when she had a similar episode of her TIA with right upper extremity weakness confusion SHOB word salad. This lasted for approx 90-120 secs. Pt was brought back to room and had repeat EKG performed. Dr Mack and Monica at bedside aslisbeth. Once EKG completed and pt returned to normal pt now ready to go to floor
[2021-10-25] MEDS: enoxaparin 80 mg/0.8 mL Syringe 70 MG SUBCUT (02:12)
[2021-10-25] MEDS: clopidogrel 300 mg Tablet PO (02:12)
--- NOTE | 2021-10-25 02:28 | USR_ITS ---
PROCEDURE INFORMATION: Exam: US Duplex Lower Extremity Veins, Bilateral Exam date and time: 10/25/2021 9:46 AM Age: 71 years old Clinical indication: Other: Pe and CVA; Patient HX: PT had seizures and on arrival found to have pe's and CVA. Also mass on esoph. ; Additional info: TIA dimer high, patient requested exam be done at a later time @[id number] TECHNIQUE: Imaging protocol: Real-time Duplex ultrasound of the bilateral extremities with 2-D jensen scale, color Doppler flow and spectral waveform analysis with image documentation. Complete exam focused on the bilateral lower extremity veins. COMPARISON: No relevant prior studies available. FINDINGS: Right deep veins: There is intraluminal thrombus present in the right peroneal vein this finding may be subacute. The common femoral, femoral, proximal profunda femoral and popliteal veins are patent without thrombus. Normal Doppler waveforms. Normal compressibility and/or augmentation response. The anterior tibial and posterior tibial veins are clear. The common femoral, femoral, and proximal profunda femoral veins are patent without thrombus. Normal Doppler waveforms. Normal compressibility and/or augmentation response. Right superficial veins: Saphenofemoral junction is patent without thrombus. Left deep veins: There is intraluminal thrombus in the left popliteal, peroneal, and ATV. Left superficial veins: Saphenofemoral junction is patent without thrombus. Soft tissues: Unremarkable. US/[place] [id number] IMPRESSION: 1. Positive for intraluminal thrombus right peroneal vein. 2. Positive for intraluminal thrombus left popliteal vein, peroneal vein, and ATV.
[2021-10-25] MEDS: lidocaine 2% viscous 15 ML, aluminum-mag hydrox-simethicon 30 ML, sucralfate oral liq 1 GM PO (02:36)
--- NOTE | 2021-10-25 04:30 | ECG_ITS ---
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 Measurements Intervals [place] Rate: 90 P: 59 ID: [id number] QRS: -27 QRSD: 93 T: 47 QT: 359 QTc: 441 Interpretive Statements SINUS RHYTHM WITH OCCASIONAL VENTRICULAR PREMATURE COMPLEXES WITH OCCASIONAL SUPRAVENTRICULAR PREMATURE COMPLEXES POSSIBLE RIGHT VENTRICULAR CONDUCTION DELAY [RSR (QR) IN V1/V2] SEPTAL MYOCARDIAL INFARCTION , OF INDETERMINATE AGE [40+ ms Q WAVE IN V1/V2] Compared to ECG 10/25/2021 01:39:46 Ventricular premature complex(es) now present Myocardial infarct finding now present Short ID interval no longer present Left-axis deviation no longer present Incomplete right bundle-branch block no longer present ST (T wave) deviation no longer present Electronically Signed On 10-25-2021 19:32:45 CDT by Joshua Capps M.D. [id number]
[2021-10-25 04:48] LABS: Basophils # 0.1 10^3/uL (0.0-0.1); Basophils % 0.6 %; Eosinophils # 0.1 10^3/uL (0.0-0.8); Hemoglobin 8.5 g/dL (11.5-15.3); Lymphocytes # 1.9 10^3/uL (0.8-4.8); Lymphocytes % 15.4 %; Mean Corpuscular HGB Conc 29.3 g/dL (30.0-36.0); Mean Corpuscular Hemoglobin 24.6 pg (28.0-34.0); Mean Corpuscular Volume 83.8 fl (81-99); Mean Platelet Volume 8.9 fL (7.4-10.4); Monocytes # 1.1 10^3/uL (0.2-0.9); Monocytes % 8.8 %; Neutrophils % 73.5 %; Nucleated Red Blood Cells % 0 %; Platelet Count 554 10^3/cmm (130-400); Red Blood Count 3.46 10^6/uL (4.1-5.3); Red Cell Distribution Width 17.6 % (12.1-15.1); White Blood Count 12.1 10^3/uL (4.0-10.0)
[2021-10-25 04:58] LABS: Estmated Average Glucose 100; Hemoglobin A1C 5.1 % (4.0-6.0)
[2021-10-25 05:17] LABS: Anion Gap 18.2 (5-19); Blood Urea Nitrogen 11 mg/dL (8-23); Carbon Dioxide 19 mmol/L (22-29); Chloride 99 mmol/L (98-107); Chol HDL Ratio 3.42 mg/dL (0.0-4.40); Cholesterol 178 mg/dL (0-200); Glucose 98 mg/dL (65-115); HDL Cholesterol 52 mg/dL (60-100); LDL Cholesterol Calculated 110 mg/dL (50-129); LDL HDL Ratio 2.12 RATIO (0.00-3.22); Magnesium 2.1 mg/dL (1.7-2.3); Osmolality Calculated 273 mOsm/kg (285-295); Potassium 4.2 mmol/L (3.5-5.1); Sodium 132 mmol/L (136-145); Thyroid Stimulating Hormone 2.62 uIU/mL (0.27-4.20); Triglycerides 82 mg/dL (0-150)
[2021-10-25 05:41] LABS: Troponin 5 6HR 759.5 ng/L (0-10)
[2021-10-25] MEDS: morphine 4 mg/mL SDV 1 mL 2 MG IVP (06:24)
[2021-10-25] MEDS: pantoprazole DR 40 mg Tablet PO ×2 (09:24→17:58)
[2021-10-25] MEDS: clopidogrel 75 mg Tablet PO (09:24)
[2021-10-25 10:26] LABS: Iron 23 ug/dL (37-145)
[2021-10-25 10:34] LABS: Percent Saturation 6.2 % (20-50); Total Iron Binding Capacity 368 mcg/dl; Unsaturated Iron Binding 345 ug/dL (112-347)
--- NOTE | 2021-10-25 11:13 | US_ITS ---
WS: [id number] THYROID ULTRASOUND HISTORY: possible mass COMPARISON: None available. Right lobe: 1.0 cm x 1.9 cm x 4.0 cm (w x ap x l). Volume: 4.0 cm3. Normal size and echotexture. No significant are dominant nodules are present. Left lobe: 1.6 cm x 1.6 cm x 4.1 cm (w x ap x l). Volume: 5.7 cm3. Normal size and echotexture. No significant or dominant nodules are present. Isthmus: 0.3 cm. US/US thyroid [id number] IMPRESSION: Normal thyroid ultrasound.
--- NOTE | 2021-10-25 11:13 | CTR_ITS ---
Calmed are are a a a a PROCEDURE INFORMATION: Exam: CT Chest Without Contrast; Diagnostic Exam date and time: 10/25/2021 3:03 PM Age: 71 years old Clinical indication: Prior surgery; Surgery date: 1-6 months; Surgery type: R shoulder; Patient HX: Anemia, pe, recent shoulder surgery; Additional info: R/O possible malignancy TECHNIQUE: Imaging protocol: Diagnostic computed tomography of the chest without contrast. Radiation optimization: All CT scans at this facility use at least one of these dose optimization techniques: automated exposure control; mA and/or kV adjustment per patient size (includes targeted exams where dose is matched to clinical indication); or iterative reconstruction. COMPARISON: CT angio chest PE protcl [id number] 10/25/2021 1:24 AM RADIATION DOSE METRICS: Total DLP (mGy-cm): 1263.2 FINDINGS: Lungs: Unremarkable. No consolidation. No masses. Pleural spaces: Unremarkable. No pneumothorax. No pleural effusion. Heart: There is heavy coronary artery calcifications. No cardiomegaly. No pericardial effusion. Lymph nodes: Unremarkable. No enlarged lymph nodes. Aorta: Unremarkable. No aortic aneurysm. Bones/joints: Postoperative hardware is seen in the right humeral head No acute fracture. Soft tissues: Unremarkable. PROCEDURE INFORMATION: Exam: CT Abdomen And Pelvis Without Contrast Exam date and time: 10/25/2021 3:03 PM Age: 71 years old Clinical indication: Prior surgery; Surgery date: 1-6 months; Surgery type: R shoulder; Patient HX: Anemia, pe, recent shoulder surgery; Additional info: R/O possible malignancy TECHNIQUE: Imaging protocol: Computed tomography of the abdomen and pelvis without contrast. Radiation optimization: All CT scans at this facility use at least one of these dose optimization techniques: automated exposure control; mA and/or kV adjustment per patient size (includes targeted exams where dose is matched to clinical indication); or iterative reconstruction. COMPARISON: CT angio chest PE protcl [id number] 10/25/2021 1:24 AM RADIATION DOSE METRICS: Total DLP (mGy-cm): 1263.2 FINDINGS: Liver: There is hepatomegaly the liver span is 20 cm. No mass. Hepatic steatosis is seen. Gallbladder and bile ducts: Filled with dense liquid. No ductal dilation. Pancreas: Normal. No ductal dilation. Spleen: Normal. No splenomegaly. Adrenal glands: Normal. No mass. Kidneys and ureters: Left renal cyst 30 mm x 28 mm No hydronephrosis. Stomach and bowel: Unremarkable. No obstruction. No mucosal thickening. Appendix: No evidence of appendicitis. Intraperitoneal space: Unremarkable. No free air. No significant fluid collection. Arteries: The proximal aorta at the level of the kidneys measures the sagittal AP measurement of 33 mm consistent with small aortic aneurysm. Lymph nodes: Unremarkable. No enlarged lymph nodes. Urinary bladder: Unremarkable as visualized. Reproductive: Unremarkable as visualized. Bones/joints: Severe lumbar spine osteoarthritis. There is a Schmorl's nodes superior endplate L1 No acute fracture. Soft tissues: Unremarkable. CT/CT chest abd pel wo con IMPRESSION: 1. Heavy coronary artery calcifications. 2. No acute findings. 3. Postoperative hardware right shoulder IMPRESSION: 1. Hepatomegaly and hepatic steatosis. 2. Gallbladder filled with hyperdense liquid. 3. Benign cyst left kidney otherwise negative urinary tract. 4. Abdominal aortic aneurysm 5. Severe lumbar spine osteoarthritis. COMMENTS: Consistent with the [employer]'s Incidental Findings Committee white paper (J Am Tiffany Radiol 2018): Any incidental renal lesion less than 1 cm or classified as too small to characterize, or any incidental cystic renal lesion characterized as simple-appearing, is likely benign. No follow-up imaging is recommended for these lesions per consensus recommendations based on imaging criteria.
--- NOTE | 2021-10-25 11:18 | P.PN_ITS ---
Subjective Subjective: Admitted overnight. On examination lying comfortably in bed. Slightly anxious. at bedside. Denies any nausea vomiting, headache. Denies any abdominal pain. Denies any chest pain or difficulty breathing currently. Currently on 2 L satting 95%. Denies any weakness in any of her arms or legs. Vitals/I&O/Wt Last Vital Signs Temp 98.1 F 10/25/21 04:00 Pulse 75 10/25/21 09:21 Resp 18 10/25/21 09:21 BP 110/70 10/25/21 09:21 Pulse Ox 95 10/25/21 06:58 10/24/21 10/25/21 10/25/21 22:59 06:59 14:59 Output Total 0 / 0 Balance 0 / 0 Weight last 48 hrs Weight 67.132 kg Weight 67.132 kg Physical Exam Narrative: Very pleasant cooperative female No active chest pain Laying supine No orthopnea PND Saturating well on room air Abdomen distended nontender No signs of edema S1, S2 sinus rhythm no carotid bruit, no murmur appreciated No audible stridor or wheezing Nonfocal neuro exam NIH 0 EOMI, PERRLA No dysarthria Gait was not tested Data : 10/25/21 04:15 10/25/21 04:15 A&P Assessment and plan (1) Brain TIA: Status: Acute (2) Carotid stenosis: Status: Acute (3) Bilateral pulmonary embolism: Status: Acute (4) DVT (deep venous thrombosis): Status: Acute (5) Renal infarct: Status: Acute (6) Anemia: Status: Acute (7) Elevated troponin: Status: Acute (8) NSTEMI (non-ST elevated myocardial infarction): Status: Acute Plan 71-year-old female with past medical history of hemorrhoids, recent blood transfusion overall 3 units couple of weeks ago, anemia presented with symptoms consistent with TIA found to have elevated D-dimer, troponin. On further evaluation found to have bilateral pulmonary embolism, renal infarct, bilateral carotid stenosis. Bilateral pulmonary embolism/renal infarct/DVT: Because of high instability, mobility of DVT for now switch from Lovenox to full dose heparin. Bedrest. Remove SCDs. Plan for switch over to from heparin to full dose Lovenox tomorrow and possibly to oral anticoagulation. Watch for anemia, blood loss. Watch for hematuria given renal infarct. Oxygen supplementation keeping saturation over 92%. Check A1c, lipid panel. Given significant thromboembolic event will have to rule out malignancy, atrial fibrillation. Check CEA, CA125, ultrasound thyroid, CT abdomen pelvis. Concern for lytic lesion in frontal lobe. Will check MRI brain to rule out any mass. 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 Check for blood clot disorders. TIA: CTA concerning for bilateral carotid stenosis. Continue with Plavix. Start on atorvastatin 80 mg daily. Follow-up lipid panel. Patient stopped smoking few months ago. Continue to peer financial counselor. Most likely will need a work-up with cardiothoracic surgery for further carotid stenting versus carotid endarterectomy. Will consult Dr. Sousa tomorrow. Transaminitis: Could be secondary to multiple infarcts. Continue to monitor. Check hepatitis panel. Elevated troponin: Possible non-ST elevation HI: Most likely troponin elevation type II HI from multiple infarcts. Given carotid stenosis cannot rule out CAD. Most likely patient will benefit from stress test. N.p.o. after midnight. Hyponatremia: Cannot rule out SIADH. Improving. Urine lites, urinalysis. Urine osmolality pending. Full code. Cardiac diet. Heparin drip will suffice for DVT prophylaxis. Protonix for PUD prophylaxis. Attestations Medical Necessity Statement*: Requires further hospitalization for further management and evaluation of bilateral pulmonary embolism, renal infarct, DVT, bilateral carotid stenosis, elevated troponins Time Spent in Patient Care: Greater than 35 minutes Coding Level of Care Code Acute Radiation Protection Technician for Chg Fwd Diagnoses Anemia D64.9 Elevated troponin R77.8 Brain TIA G45.9 NSTEMI (non-ST elevated myocardial infarction) I21.4 Bilateral pulmonary embolism I26.99 Renal infarct N28.0 DVT (deep venous thrombosis) I82.409 Carotid stenosis I65.29
--- NOTE | 2021-10-25 11:28 | ECG_ITS ---
[facility] Test Date: 2021-10-26 Pat Name: Miriam Courtney Department: Room: 252 Gender: Female Pathology Lab Technician: Janelle Marsh : 1950 Requested By: Luis Eduardo Nazario Order Number: [id number] Rima MD: Lovely Oliveira M.D. Interpretive Statements NAME OF STUDY: LEXISCAN SESTAMIBI STRESS TEST INDICATION: NSTEMI PROCEDURE: At the baseline, the blood pressure was 101/68 mmHg, oxygen saturation 95% with a heart rate of 85 bpm. The electrocardiogram showed normal sinus rhythm, leftward axis. RSR' consider normal variant. Poor anterior R wave progression. Nonspecific ST depression in inferolateral leads. The Lexiscan was infused over a period of 20 seconds. A total of 0.4 milligrams of Lexiscan was infused. The stress phase was continued for a total of 5 minutes. Heart rate at the end of the stress phase was 92 bpm, oxygen saturation 97% with a blood pressure of 102/60 mmHg. The EKG at the peak infusion revealed sinus rhythm with no significant ST-T wave changes. The study was terminated protocol completion. Sestamibi was injected 20 seconds after the Lexiscan infusion. Blood pressure at the end of the recovery phase was 103/63 mmHg, oxygen saturation 95% with a heart rate of 90 beats per minute. Isolated PVCs noted in recovery. CONCLUSION: 1. No significant EKG changes with the LexiScan infusion. 2. No LexiScan induced chest pain or cardiac arrhythmia. 3. Normal blood pressure and heart rate response. 4. Sestamibi/sestamibi perfusion scan pending; see separate report. Electronically Signed On 10-26-2021 12:02:13 CDT by Lovely Oliveira M.D. [email or web address] ([id number]
[2021-10-25] MEDS: atorvastatin 40 mg Tablet 80 MG PO (12:03)
[2021-10-25] MEDS: heparin drip 25,000 UNIT/500 ML PREMIX 19 UNIT IV (12:06)
[2021-10-25 12:17] LABS: Carcinoembryonic Antigen 6.1 ng/mL (0.0-4.7)
[2021-10-25 12:47] LABS: HIV 1 & 2 Antibody Non-Reactive (Non-Reactiv); HIV 1 & 2 Antigen Non-Reactive (Non-Reactiv)
[2021-10-25 13:06] LABS: CA 125 13.8 U/mL (0-35)
[2021-10-25 19:10] LABS: Partial Thromboplastin Time 58.4 SECONDS (23.9-36.7)
[2021-10-26] VITALS (17 sets, daily range): BP systolic 90–138; BP diastolic 56–88; PULSE 79–100; RESP 16–28; TEMP 36.4–36.9; O2SAT 2–99
[2021-10-26 01:45] LABS: Partial Thromboplastin Time 67.3 SECONDS (23.9-36.7)
[2021-10-26 07:07] LABS: Basophils # 0.1 10^3/uL (0.0-0.1); Basophils % 0.7 %; Eosinophils # 0.2 10^3/uL (0.0-0.8); Eosinophils % 1.8 %; Hematocrit 26.3 % (37.0-47.0); Hemoglobin 7.8 g/dL (11.5-15.3); Lymphocytes # 1.5 10^3/uL (0.8-4.8); Lymphocytes % 15.4 %; Mean Corpuscular HGB Conc 29.7 g/dL (30.0-36.0); Mean Corpuscular Hemoglobin 24.6 pg (28.0-34.0); Mean Platelet Volume 8.7 fL (7.4-10.4); Monocytes % 10.4 %; Neutrophils # 7.01 10^3/uL (1.8-7.7); Neutrophils % 71.2 %; Nucleated Red Blood Cells % 0 %; Platelet Count 454 10^3/cmm (130-400); Red Blood Count 3.17 10^6/uL (4.1-5.3); Red Cell Distribution Width 17.6 % (12.1-15.1); White Blood Count 9.9 10^3/uL (4.0-10.0)
[2021-10-26 07:20] LABS: Alanine Aminotransferase 105 U/L (0-33); Albumin Level 3.5 g/dL (3.5-5.2); Alkaline Phosphatase 131 IU/L (35-105); Anion Gap 13.8 (5-19); Aspartate Amino Transferase 63 U/L (0-32); Blood Urea Nitrogen 10 mg/dL (8-23); Carbon Dioxide 23 mmol/L (22-29); Chloride 102 mmol/L (98-107); Globulin 2.9 g/dL (1.3-4.6); Glucose 96 mg/dL (65-115); Osmolality Calculated 279 mOsm/kg (285-295); Potassium 3.8 mmol/L (3.5-5.1); Sodium 135 mmol/L (136-145); Total Bilirubin 0.4 mg/dL (0.15-1.2); Total Protein 6.4 g/dL (6.6-8.7)
[2021-10-26 07:24] LABS: Partial Thromboplastin Time 65.5 SECONDS (23.9-36.7)
[2021-10-26] MEDS: regadenoson 0.4 Mg/5 ml Syringe IVP (08:02)
--- NOTE | 2021-10-26 08:14 | PC.NURSE ---
to nuc med
--- NOTE | 2021-10-26 09:30 | MR_ITS ---
WS: [id number] MRI HEAD WITHOUT CONTRAST TECHNIQUE: Sagittal T1, T2 axial, T2 axial FLAIR, axial and coronal T1 images, axial susceptibility w eighted imaging, axial diffusion weighted images, and coronal T2 images were obtained. Some images de graded by patient motion. CLINICAL INFORMATION: stroke, r/o malignancy COMPARISON: CT October 24, 2021 FINDINGS: Small area of restricted diffusion in the LEFT frontoparietal sulcus consistent with acute ischemia. Small amount of edema in this area. No mass effect or midline shift. No other foci of restricted diff usion. Moderate to advanced small vessel changes. Moderate parenchymal volume loss. Normal posterior fossa. Normal vascular flow voids at the skull base. No extra-axial fluid collections. No evidence of mass o r mass effect. Mild mucosal thickening in the ethmoid air cells. Mastoid air cells are well aerated. No hemosiderin on the susceptibly weighted images. Normal optic chiasm and pituitary infundibulum. Ad vanced symmetric atrophy temporal lobes and hippocampal formations. MR/MR head wo con* [id number] IMPRESSION: Some images degraded by motion artifact. 1. Small focus of restricted diffusion involving the LEFT frontoparietal junct ion consistent with acute ischemia measuring 6 mm. 2. Mild associated edema in this area. No mass effect or midline shift. 3. Advanced small vessel changes with moderate parenchymal volume loss. 4. Advanced atrophy anterior temporal lobes and hippocampal formations asymmet eyal compared to the remainder of the brain parenchyma. This can be seen with fr ontotemporal or Alzheimer's dementia in the appropriate clinical setting. 5. RIGHT frontal calvarial lesion described on the head CT demonstrates T1 hyp erintensity compatible with incidental benign hemangioma. Notified Dr. Tim HANCOCK at 10/26/2021 1:00 PM.
[2021-10-26] MEDS: clopidogrel 75 mg Tablet PO (09:48)
[2021-10-26] MEDS: pantoprazole DR 40 mg Tablet PO (09:48)
--- NOTE | 2021-10-26 11:24 | P.PN_ITS ---
Subjective Subjective: Patient was seen and examined this morning, she was complaining of heartburn, she is also complaining of Progressively worsening shortness of breath with exertion, going on for quite some time. She has denied chest pain, even with exertion. Medications: Medication Review Details: Generic Name Dose Route Start Last Admin Trade Name Rox PRN Reason Stop Dose Admin Atorvastatin Calci um 80 mg 10/25/21 09:45 10/25/21 12:03 Atorvastatin 40 Mg Tablet PO 80 mg BEDTIME JACKIE Administration Clopidogrel Bisulf ate 75 mg 10/25/21 09:00 10/26/21 09:48 Clopidogrel 75 M g Tablet PO 75 mg DAILY JACKIE Administration Morphine Sulfate 2 mg 10/25/21 06:00 10/25/21 06:24 Morphine 4 Mg/Ml Sdv 1 Ml IVP 2 mg Q4H PRN Administration SEVERE PAIN Pantoprazole Sodiu m 40 mg 10/25/21 09:00 10/26/21 09:[address] 40 Mg Tablet PO 40 mg BID JACKIE Administration Vitals/I&O/Wt Last Vital Signs Temp 98.2 F 10/26/21 04:00 Pulse 92 10/26/21 06:00 Resp 24 H 10/26/21 04:00 BP 90/56 10/26/21 04:00 Pulse Ox 99 10/26/21 04:00 10/25/21 10/26/21 10/26/21 22:59 06:59 14:59 Intake Total 300 / 300 Output Total 1600 / 1600 Balance 300 / 300 -1600 / -1300 Weight last 48 hrs Weight 67.132 kg Weight 67.132 kg Physical Exam Const: COMMON NORMALS: patient oriented x3 HENMT: COMMON NORMALS: normocephalic and atraumatic HEAD & SCALP: normocephalic and atraumatic Eye: GENERAL EYE: appearance normal, both eyes and all related structures Chest: COMMONS NORMALS: normal inspection of the chest and normal palpation of entire chest wall CHEST: Yes Symmetrical chest wall rise Resp: COMMON NORMALS: normal respiratory effort, No retractions, No use of accessory muscles and clear to auscultation bilaterally EFFORT & INSPECTION: Yes symmetric chest movement AUSCULTATION: clear to auscultation bilaterally Cardio: COMMON NORMALS: regular rate, regular rhythm, S1 normal heart sound present, S2 normal heart sound present, No gallops present (Cardio), No murmurs present (Cardio), No rub (Cardio) and Peripheral pulses 2+ throughout RATE: regular rate RHYTHM: regular rhythm HEART SOUNDS: S1 normal heart sound present and S2 normal heart sound present PERIPHERAL PULSES: Peripheral pulses 2+ throughout GI: COMMON NORMALS: Normal to inspection, nondistended, normoactive bowel sounds present, Soft to palpation, non-tender, No hepatosplenomegaly present and no masses AUSCULTATION: Yes normoactive bowel sounds PALPATION: Yes Soft to palpation and Yes No hepatosplenomegaly present RECTAL EXAM: deferred Extremity: COMMON NORMALS: no clubbing, cyanosis or edema and no pedal edema Neuro: COMMON NORMALS: patient oriented x3 Data : 10/26/21 15:23 10/26/21 06:56 A&P Assessment and plan (1) Brain TIA: Status: Acute (2) Carotid stenosis: Status: Acute (3) Bilateral pulmonary embolism: Status: Acute (4) DVT (deep venous thrombosis): Status: Acute (5) Renal infarct: Status: Acute (6) Anemia: Status: Acute (7) Elevated troponin: Status: Acute (8) NSTEMI (non-ST elevated myocardial infarction): Status: Acute Plan 71-year-old female with past medical history of hemorrhoids, recent blood transfusion overall 3 units couple of weeks ago, anemia, chronic smoking, presented with symptoms consistent with TIA found to have elevated D-dimer, t roponin. On further evaluation found to have bilateral pulmonary embolism, renal infarct, bilateral carotid stenosis. Bilateral pulmonary embolism/renal infarct/DVT: CTA chest:Pulmonary emboli noted in a right middle lobe segmental pulmonary artery, right lower lobe segmental pulmonary artery, and a left lower lobe segmental pulmonary artery. renal infarct in the left kidney upper pole. Bilateral lower extremity Doppler vein: ?Positive for intraluminal thrombus right peroneal vein. Positive for intraluminal thrombus left popliteal vein, peroneal vein, and ATV. CT chest abd pel wo con: ?Hepatomegaly and hepatic steatosis Thyroid ultrasound: Normal CEA: 6.1 , CA125: 13.8 Initially on heparin Has been switched to Lovenox Will transition to Eliquis on discharge. #NSTEMI: Cannot conclusively rule out NSTEMI type I. Though it can be NSTEMI type II in the setting of PE. Patient has significant smoking history, has carotid stenosis. Troponin trend: [id number] 2D echo: Normal LV systolic function with EF of 55 to 60%,Mild mitral annular calcification. Moderate mitral regurgitation,Trace tricuspid regurgitation. Nuclear stress test: : Large sized perfusion abnormality of basal to apical infe rior, basal to mid ?inferolateral, mid anterolateral and apical lateral erickson with mild ?reversibility in mid inferolateral and apical lateral erickson.Old myocardial infarction in right coronary artery/circumflex artery ?territory with minimal courtney-infarct ischemia in circumflex artery territory. Currently she is on Plavix , statin , therapeutic anticoagulation. Appreciate cardiology input # history of hemorrhoids, recent blood transfusion: Currently h/H: is 7.01/25 Transfuse 1 unit PRBC Monitor H&H TIA: CT head without contrast: No acute intracranial Pathology CTA bilateral carotid stenosis. MRI brain without contrast: Small focus of restricted diffusion involving the LEFT frontoparietal junction consistent with acute ischemia. lipid panel: Triglyceride 82, total cholesterol 178, LDL 110, HDL 52 On Plavix, atorvastatin 80 mg daily. Most likely will need a work-up with cardiothoracic surgery for further carotid stenting versus carotid endarterectomy. consult Dr. Sousa tomorrow. Transaminitis: Could be secondary to multiple infarcts. Continue to monitor. Check hepatitis panel. Hyponatremia: Cannot rule out SIADH. Improving. Urine lites, urinalysis. Urine osmolality pending. Full code. Cardiac diet. DVT prophylaxis. Protonix for PUD prophylaxis. Attestations Medical Necessity Statement*: Patient is still in hospital for management of pulmonary embolism, DVT Time Spent in Patient Care: Greater than 35 minutes (>than 50% of time spent in counselling and/or direct pt care on unit) . Coding Level of Care Code Acute Investor Relations Director for g Fwd Exam Comprehensive Diagnoses Brain TIA G45.9 Carotid stenosis I65.29 Bilateral pulmonary embolism I26.99 DVT (deep venous thrombosis) I82.409 Renal infarct N28.0 Anemia D64.9 Elevated troponin R77.8 NSTEMI (non-ST elevated myocardial infarction) I21.4
--- NOTE | 2021-10-26 11:28 | NMCV_ITS ---
NM mitzi perf SPECT r/s* [id number] Miriam Courtney Age: 71 Gender: F : 1950 Exam Date: 10/26/2021 07:06 Ordering Phys: Luis Eduardo Nazario MD Technologist: EUSEBIA Jefferson Exam Location: [facility] Indications: CHEST PAIN STRESS TEST [facility] IMAGE PROTOCOL Rest/Stress 1 Lexiscan Day Radiopharmaceutical Dose (mCi) Administration Site Administered by Rest: Tc-99m 10.8 IV EUSEBIA Venegas Sestamibi Stress:Tc-99m 32.8 IV EUSEBIA Venegas Sestamibi Rest: 26-Oct-2021 60 Discovery 630 Stress: 26-Oct-2021 30 Discovery 630 0.4mg Lexiscan. Images obtained in supine and prone position. SPECT RESULTS Technical Quality: Excellent Raw Data Analysis: Normal Image Corrections: No attenuation or motion correction applied Summed Stress Score: 14 Summed Rest Score: 16 Summed Difference Score: 1 PERFUSION FINDINGS Large sized perfusion abnormality of moderate to severe severity of basal to apical inferior, basal to mid inferolateral, apical lateral, mid anterolateral erickson on rest images with mild reversibility in mid inferolateral and apical lateral erickson. FUNCTIONAL RESULTS (calculated via Gated SPECT) Stress Image LV EF (%): 65 Stress EDV (mL):120 TID: 0.91 Stress ESV (mL):42 FUNCTIONAL FINDINGS: The left ventricle is normal in size. Transient Ischemia Dilatation of 0.91. There is normal left ventricular systolic function. The left ventricular ejection fraction is normal with a value of 65%. There is normal left ventricular wall thickening with no regional wall motion abnormality. Normal end-diastolic end-systolic volumes. IMPRESSIONS 1. Large sized perfusion abnormality of basal to apical inferior, basal to mid inferolateral, mid anterolateral and apical lateral erickson with mild reversibility in mid inferolateral and apical lateral erickson. 2. Old myocardial infarction in right coronary artery/circumflex artery territory with minimal courtney-infarct ischemia in circumflex artery territory. 3. Overall left ventricular systolic function is normal without regional wall motion abnormalities, LVEF=65%. 4. No significant EKG changes with Lexiscan infusion. Lovely Oliveira MD (Electronically Signed) Final Date: 26 October 2021 12:42 S
--- NOTE | 2021-10-26 11:51 | PC.CHAP ---
Pastoral Care Encounter/Spiritual Assessment Type of Contact [] Declined mesh cutter visit [] Patient/Family/Request visit [] Outpatient visit [] Follow-up visit [] Physician referral [] Code/Alert [x] Routine visit [] Staff referral [] Actively dying [] Patient sleeping [] Family support [] [] Out of room [] Palliative care [] [] Receiving care in room [] Pre-surgical visit [] Trauma [] Long length of stay [] ICU visit [] Other: Relational/Emotional Strength x[] Patient feels connected with others/family/visitors/staff [] Distress [] Loneliness/isolation [] Abandonment Spirituality of Patient x] Person of Tracy [x] Attends Religious of their [place] [x] Believes in Prayer [] Reads Bible or Scientologist materials [] There are Spiritual issues to be addressed Clarifier Operator Helper Interventions [x] Prayer [] Active listening [] Non-anxious presence [] Spiritual/emotional support [] Crisis/trauma care [] Spiritual counseling [] Bereavement support [] Provided bereavement packet [] Provided Bible/devotional materials [] Provided toy/stuffed animal, coloring book to patient or family member [] Provided Communion [] Anointing/[place] [] Salvation [x] Completed spiritual assessment [] Other: Impact on Illness or Injury [] Angry [] Fearful [] Anxious [] Often cries [] Exhaustion [] Unable to work [] Unable to attend mu-ism [] Unable to walk/stand [] Unable to read [] Unable to drive [] Unable to eat/drink [] Unable to sleep [] Unable to be with family [] Patient intubated [] Other: Summary Time spent with patient
[2021-10-26 15:29] LABS: Basophils # 0.1 10^3/uL (0.0-0.1); Basophils % 0.6 %; Eosinophils # 0.2 10^3/uL (0.0-0.8); Eosinophils % 1.9 %; Hematocrit 25.8 % (37.0-47.0); Hemoglobin 7.7 g/dL (11.5-15.3); Lymphocytes # 1.7 10^3/uL (0.8-4.8); Lymphocytes % 17.2 %; Mean Corpuscular HGB Conc 29.8 g/dL (30.0-36.0); Mean Corpuscular Hemoglobin 24.8 pg (28.0-34.0); Mean Platelet Volume 8.5 fL (7.4-10.4); Monocytes # 1.2 10^3/uL (0.2-0.9); Monocytes % 12.3 %; Neutrophils # 6.47 10^3/uL (1.8-7.7); Neutrophils % 67.3 %; Nucleated Red Blood Cells % 0 %; Platelet Count 441 10^3/cmm (130-400); Red Blood Count 3.11 10^6/uL (4.1-5.3); Red Cell Distribution Width 17.9 % (12.1-15.1); White Blood Count 9.6 10^3/uL (4.0-10.0)
--- NOTE | 2021-10-26 15:51 | PM.CONSULT ---
Providers/Reason For Consult Consulting Physician/Specialty*: Dr. Oliveira, Cardiology Reason for Consult*: Elevated troponin, abnormal stress test. Attending Physician: Rashel Dumont MD Primary Care Provider: Alexus Flowers DO History of Present Illness History of Present Illness Miriam Courtney is a 71 year old female without significant past medical history presented today with chief complaint of strokelike symptoms.? Around 4:30 PM her noticed that her face was deviating towards left side and she was not able to move her right arm this resolved within a minute.? After 10 minutes when she was in the kitchen her noticed that she was not able to speak properly, speech was garbled, this resolved as well within a minute.? Around 8:30 PM when she went to bed she woke up feeling very distressed, diaphoretic and experienced 1 brief episode of palpitation.? This time her took her to the hospital for further evaluation.? She did not experience any chest pain however endorsing midepigastric heartburn for last 2-3 days.? No nausea, vomiting, shortness of breath, orthopnea or PND.? No previous history of UT, CHF, coronary disease, stroke.? Recently received blood transfusion for bleeding associated with hemorrhoids.? Hemorrhoidectomy done by Dr. Yang 10 days before. Troponin T elevated 809-->693--> 795. Review of Systems Const: Denies: fever(s) or chills Eyes: Denies: change in vision ENMT: Denies: throat pain Card: Reports: chest pain; Denies: palpitations, irregular heart rhythm, edema, lightheadedness or leg pain with exertion Resp: Denies: dyspnea GI: Reports: heartburn and hematochezia; Denies: abdominal pain : Denies: flank pain Musc: Denies: neck pain Skin/Breast: Denies: rash Neuro: Reports: Slurred speech present Psych: Denies: anxiety or memory loss Endo: Denies: polyuria Saturnino/Lymph: Denies: easy bruising All/Imm: Denies: urticaria Medications/Allergies Home Medications Medication Instructions Recorded Confirmed Last Taken Type lactulose 10 gram/15 mL oral 15 ml PO BID #237 ml 10/15/21 10/25/21 10/24/21 18:00 Rx solution Allergies Allergy/AdvReac Type Severity Reaction Status Date / Time shellfish derived Allergy Unknown Unknown Verified 10/24/21 21:58 Penicillins Allergy Unknown Verified 10/24/21 21:58 Current Medications Generic Name Dose Route Start Last Admin Trade Name Freq PRN Reason Stop Dose Admin Atorvastatin Calcium 80 mg 10/25/21 09:45 10/25/21 12:03 Atorvastatin 40 Mg Tablet PO 80 mg BEDTIME JACKIE Administration Clopidogrel Bisulfate 75 mg 10/25/21 09:00 10/26/21 09:48 Clopidogrel 75 Mg Tablet PO 75 mg DAILY JACKIE Administration Morphine Sulfate 2 mg 10/25/21 06:00 10/25/21 06:24 Morphine 4 Mg/Ml Sdv 1 Ml IVP 2 mg Q4H PRN Administration SEVERE PAIN Pantoprazole Sodium 40 mg 10/25/21 09:00 10/26/21 09:[address] 40 Mg Tablet PO 40 mg BID JACKIE Administration PFSH Acute PFSH: Medical History (Updated 10/26/21 @ 21:22 by Lovely Oliveira MD) CVA (cerebral vascular accident) Hypertension Surgical History H/O hemorrhoidectomy (10/15/21) History of colonoscopy History of open reduction and internal fixation (ORIF) procedure right shoulder Family History Sister CAD (coronary artery disease) Artery disease UT at age 65 Social History Smoking and tobacco status: current some day smoker Substance/Drug Use: never Household members: spouse Housing: House Vitals/I&O/Wt Last Vital Signs Temp 97.6 F 10/26/21 12:00 Pulse 88 10/26/21 14:00 Resp 18 10/26/21 12:56 BP 118/59 10/26/21 12:00 Pulse Ox 95 10/26/21 12:56 10/26/21 10/26/21 10/26/21 06:59 14:59 22:59 Intake Total 1220 / 1220 Output Total 1600 / 1600 Balance -1600 / -1300 1220 / 1220 Weight last 48 hrs Weight 148 lb Weight 148 lb Physical Exam Narrative: GENERAL: Averagely built and averagely nourished in no acute distress HEENT: Extraocular movement intact. No pallor or icterus. NECK: central trachea, No JVD, + carotid bruit. CARDIOVASCULAR SYSTEM: S1-S2 regular. No murmur rubs or gallops. RESPIRATORY SYSTEM: Chest clear to auscultation. No wheezes rhonchi or rubs heard. No use of accessory muscles. ABDOMEN: Soft, nontender and nondistended. Normal bowel sounds present. EXTREMITIES: No cyanosis or clubbing. [No edema]. No signs of chronic venous insufficiency. CONSTRUCTION SUPERVISOR: Patient is alert oriented ?3. SKIN: Normal turgor and temperature. No breakdown, rash or nail changes noted. [] PSYCH: Normal insight and judgment. No suicidal or homicidal ideations. Data : 10/26/21 15:23 10/26/21 06:56 Other data: Echo (10/23/21) CONCLUSIONS ?LV systolic function is normal with EF of 55-60% ?Mild mitral annular calcification. Moderate mitral regurgitation ?Trace tricuspid regurgitation ?No comparison studies are available Head MRI (10/26/21) IMPRESSION: Some images degraded by motion artifact. ? 1.? Small focus of restricted diffusion involving the LEFT frontoparietal junction consistent with acute ischemia measuring 6 mm. 2.? Mild associated edema in this area. No mass effect or midline shift. 3.? Advanced small vessel changes with moderate parenchymal volume loss. 4.? Advanced atrophy anterior temporal lobes and hippocampal formations asymmetric compared to the remainder of the brain parenchyma. This can be seen with frontotemporal or Alzheimer's dementia in the appropriate clinical setting. 5.? RIGHT frontal calvarial lesion described on the head CT demonstrates T1 hyperintensity compatible with incidental benign hemangioma. Lexiscan sestamibi MPI (10/26/21) IMPRESSIONS ?1. Large sized perfusion abnormality of basal to apical inferior, basal to mid ?inferolateral, mid anterolateral and apical lateral erickson with mild ?reversibility in mid inferolateral and apical lateral erickson. ?2.? Old myocardial infarction in right coronary artery/circumflex artery ?territory with minimal courtney-infarct ischemia in circumflex artery territory. ?3. Overall left ventricular systolic function is normal without regional wall ?motion abnormalities, LVEF=65%. ?4.? No significant EKG changes with Lexiscan infusion. Venous duplex (10/25/21) IMPRESSION: 1. Positive for intraluminal thrombus right peroneal vein. 2. Positive for intraluminal thrombus left popliteal vein, peroneal vein, and ATV. Head and neck CTA (10/25/21) IMPRESSION: 1. Faint contrast in an apparent tiny right vertebral artery. Two prominent stenoses in the left vertebral artery. Two moderate stenoses in the left ICA. Other stenoses detailed above. 2. 15 mm lytic mass in the right frontal bone. ? ? IMPRESSION: 1. No normal right vertebral artery consistent with occlusion of at least its proximal aspect. Questionable enhancement in a tiny right vertebral artery or collateral vessel in the upper cervical spine. Multiple mild stenoses in the left vertebral artery. 2. Approximately 80% and 60-70% stenoses in the proximal right ICA. Approximately 80% stenosis of the origin of the left ICA as well. 3. Mass anterior to the left epiglottis, cause unclear. 4. Emphysema. Increased interstitial markings in both lung apices such that pulmonary edema not excluded. Two 3 mm nodules in the right lung apex. For patients at low risk (minimal or absent history of smoking and of other known risk factors), no routine follow-up is indicated. For patients at high risk (history of smoking or of other known risk factors), consider optional CT Chest at 12 months. (Reference: [place]) 5. Chronic spinal disease detailed above. CTA chest (10/25/21) IMPRESSION: 1. Pulmonary emboli noted in a right middle lobe segmental pulmonary artery, right lower lobe segmental pulmonary artery, and a left lower lobe segmental pulmonary artery. 2. 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 3. Partially visualized abdominal aortic aneurysm measuring 4.1 cm x 3.3 cm. CTA chest/abdomen and pelvis (10/25/21) IMPRESSION: 1. Heavy coronary artery calcifications. 2. No acute findings. 3. Postoperative hardware right shoulder ? ? IMPRESSION: 1. Hepatomegaly and hepatic steatosis. 2. Gallbladder filled with hyperdense liquid. 3. Benign cyst left kidney otherwise negative urinary tract. 4. Abdominal aortic aneurysm 5. Severe lumbar spine osteoarthritis. A&P Assessment and plan (1) Bilateral pulmonary embolism: Recent hemarrhoid sx causing limited mobility -on lovenox Status: Acute (2) DVT (deep venous thrombosis): Bilateral leg DVT on lovenox Status: Acute (3) CVA (cerebral vascular accident): acute CVA Status: Acute (4) NSTEMI (non-ST elevated myocardial infarction): likely type 2 in setting of recent CVA and mildly pulmonary congestion on arrival. -possible old UT in inferior/IL wall with mild courtney-infarct ischemia -continue ASA and high intensity statin. Status: Acute (5) Carotid stenosis: Status: Acute (6) Renal infarct: plan for renal duplex. -May need to consider underlying PFO. -I will decide on CRISTINE based on findings of renal duplex Status: Acute (7) Anemia: plan for 1 unit of pRBC today. Status: Acute Plan Thrombocytosis Left renal infarct Abdominal aortic anurysm (4.1 x 3.3 cm) Abnormal liver enzymes Hepatomegaly and hepatic steatosis. Thank you for allowing me to participate in patient's care. Please feel free to call with questions and concerns. Coding Level of Care Code Acute Residential Sales Executive for Jasson Pastrana Diagnoses Bilateral pulmonary embolism I26.99 NSTEMI (non-ST elevated myocardial infarction) I21.4 DVT (deep venous thrombosis) I82.409 CVA (cerebral vascular accident) I63.9 Carotid stenosis I65.29 Renal infarct N28.0 Anemia D64.9
[2021-10-26 15:58] LABS: Osmolality Urine 421 mOsm/kg (50-1200)
[2021-10-26 15:58] LABS: Osmolality Serum 280 mOsm/kg (278-305)
[2021-10-26] MEDS: enoxaparin 80 mg/0.8 mL Syringe 70 MG SUBCUT (15:59)
[2021-10-26 17:13] LABS: Anti-Double Strand DNA AB 2 IU/mL; Jo-1 Antibody <1.0 NEG AI (<1.0 NEG); SM/RNP Antibodies <1.0 NEG AI (<1.0 NEG); SS-B/LA IGG <1.0 NEG AI (<1.0 NEG); Scleroderma Ab(Scl-70) Ab <1.0 NEG AI (<1.0 NEG); Smith Antibody <1.0 NEG AI (<1.0 NEG); Ss-A/Ro Igg <1.0 NEG AI (<1.0 NEG)
[2021-10-26] MEDS: lanolin oint 7 gm 1 APPLIC TOPICAL (19:50)
[2021-10-26] MEDS: atorvastatin 40 mg Tablet 80 MG PO (20:32)
[2021-10-26] MEDS: pantoprazole 40 mg SDV IVP (20:32)
[2021-10-26] MEDS: sodium chloride 0.9% (100 ml) 100 ML 20 ML (20:33)
--- NOTE | 2021-10-26 21:30 | USCV_ITS ---
Miriam Courtney Age: 71 Gender: F : 1950 Exam Date: 10/26/2021 23:53 Ordering Phys: Lovely Oliveira MD ([email or web address]) Technologist: [email or web address] [place] [facility] [place] Indication: renal infarct Aortic Velocity @ SMA (cm/s) RIGHT KIDNEY LEFT KIDNEY Velocity (cm/s) Velocity (cm/s) Sys/Khan Sys/Khan Resistive Index Resistive Index 15.2 / 3.0 0.80 Proximal Renal Artery / FINDINGS Non diagnostic evaluation of the renal arteries. Non visualization of arteries and a large amount of bowel gas. CONCLUSIONS Non diagnostic evaluation of the renal arteries. Dr. Lauren Angulo DO (Electronically Signed) Final Date: 27 October 2021 12:45 S
[2021-10-27 02:05] LABS: Hematocrit 28.2 % (37.0-47.0); Hemoglobin 8.6 g/dL (11.5-15.3)
[2021-10-27] MEDS: enoxaparin 80 mg/0.8 mL Syringe 70 MG SUBCUT (03:44)
[2021-10-27 03:59] VITALS: BP 108/63; PULSE 73; RESP 20; TEMP 36.7; O2SAT 95
[2021-10-27 05:14] LABS: Basophils # 0.1 10^3/uL (0.0-0.1); Basophils % 0.6 %; Eosinophils # 0.2 10^3/uL (0.0-0.8); Eosinophils % 2.6 %; Hemoglobin 8.5 g/dL (11.5-15.3); Lymphocytes # 1.7 10^3/uL (0.8-4.8); Lymphocytes % 18.7 %; Mean Corpuscular HGB Conc 30.4 g/dL (30.0-36.0); Mean Corpuscular Hemoglobin 24.9 pg (28.0-34.0); Mean Corpuscular Volume 81.9 fl (81-99); Monocytes # 1.1 10^3/uL (0.2-0.9); Monocytes % 11.3 %; Neutrophils # 6.13 10^3/uL (1.8-7.7); Neutrophils % 66.3 %; Nucleated Red Blood Cells % 0 %; Platelet Count 462 10^3/cmm (130-400); Red Blood Count 3.42 10^6/uL (4.1-5.3); Red Cell Distribution Width 17.4 % (12.1-15.1); White Blood Count 9.3 10^3/uL (4.0-10.0)
[2021-10-27 05:46] LABS: Anion Gap 14.1 (5-19); Blood Urea Nitrogen 12 mg/dL (8-23); Calcium 8.4 mg/dL (8.5-10.5); Carbon Dioxide 23 mmol/L (22-29); Chloride 104 mmol/L (98-107); Glucose 99 mg/dL (65-115); Osmolality Calculated 284 mOsm/kg (285-295); Potassium 4.1 mmol/L (3.5-5.1); Sodium 137 mmol/L (136-145)
[2021-10-27 05:59] VITALS: PULSE 87
[2021-10-27 05:59] LABS: Hepatitis B Core AB, Total Non-Reactive (Nonreactive); Hepatitis B Surface AB 47.8 (11.5-1000); Hepatitis B Surface Antigen Non-Reactive (Nonreactive); Hepatitis C Virus Antibody Non-Reactive (Nonreactive)
[2021-10-27] MEDS: pantoprazole 40 mg SDV IVP (06:27)
[2021-10-27 08:00] VITALS: BP 126/65; PULSE 78; RESP 16; TEMP 36.8; O2SAT 96
[2021-10-27] MEDS: clopidogrel 75 mg Tablet PO (08:24)
--- NOTE | 2021-10-27 10:41 | P.PN_ITS ---
Subjective Subjective: Patient was seen and examined this morning, overall she is feeling better, H&H after 1 unit PRBC:8.5 Medications: Medication Review Details: Generic Name Dose Route Start Last Admin Trade Name Freq PRN Reason Stop Dose Admin Atorvastatin Calci um 80 mg 10/25/21 09:45 10/26/21 20:32 Atorvastatin 40 Mg Tablet PO 80 mg BEDTIME JACKIE Administration Lanolin 1 applic 10/26/21 19:37 10/26/21 19:50 Lanolin Oint 7 G m TOPICAL 1 applic PRN PRN Administration DRYNESS Morphine Sulfate 2 mg 10/25/21 06:00 10/25/21 06:24 Morphine 4 Mg/Ml Sdv 1 Ml IVP 2 mg Q4H PRN Administration SEVERE PAIN Pantoprazole Sodiu m 40 mg 10/26/21 18:00 10/27/21 06:27 Pantoprazole 40 Mg Sdv IVP 40 mg Q12H JACKIE Administration Vitals/I&O/Wt Last Vital Signs Temp 98.3 F 10/27/21 08:00 Pulse 78 10/27/21 08:00 Resp 16 10/27/21 08:00 BP 126/65 10/27/21 08:00 Pulse Ox 96 10/27/21 08:00 10/26/21 10/27/21 10/27/21 22:59 06:59 14:59 Intake Total 296 / 1516 160 / 1676 Balance 296 / 1516 160 / 1676 Physical Exam Const: COMMON NORMALS: patient oriented x3 HENMT: COMMON NORMALS: normocephalic and atraumatic HEAD & SCALP: norm ocephalic and atraumatic Eye: GENERAL EYE: appearance normal, both eyes and all related structures Chest: COMMONS NORMALS: normal inspection of the chest and normal palpation of entire chest wall CHEST: Yes Symmetrical chest wall rise Resp: COMMON NORMALS: normal respiratory effort, No retractions, No use of a ccessory muscles and clear to auscultation bilaterally EFFORT & INSPECTION: Yes symmetric chest movement AUSCULTATION: clear to auscultation bilaterally Cardio: COMMON NORMALS: regular rate, regular rhythm, S1 normal heart sound present, S2 normal heart sound present, No gallops present (Cardio), No murmurs present (Cardio), No rub (Cardio) and Peripheral pulses 2+ throughout RATE: regular rate RHYTHM: regular rhythm HEART SOUNDS: S1 normal heart sound present and S2 normal heart sound present PERIPHERAL PULSES: Peripheral pulses 2+ throughout GI: COMMON NORMALS: Normal to inspection, nondistended, normoactive bowel sounds present, Soft to palpation, non-tender, No hepatosplenomegaly present and no masses AUSCULTATION: Yes normoactive bowel sounds PALPATION: Yes Soft to palpation and Yes No hepatosplenomegaly present RECTAL EXAM: deferred Extremity: COMMON NORMALS: no clubbing, cyanosis or edema and no pedal edema Neuro: COMMON NORMALS: patient oriented x3 Data : 10/27/21 04:25 10/27/21 04:25 A&P Assessment and plan (1) Brain TIA: Status: Acute (2) Carotid stenosis: Status: Acute (3) Bilateral pulmonary embolism: Status: Acute (4) DVT (deep venous thrombosis): Status: Acute (5) Renal infarct: Status: Acute (6) Anemia: Status: Acute (7) Elevated troponin: Status: Acute (8) NSTEMI (non-ST elevated myocardial infarction): Status: Acute Plan 71-year-old female with past medical history of hemorrhoids, recent blood transfusion overall 3 units couple of weeks ago, anemia, chronic smoking, presented with symptoms consistent with TIA found to have elevated D-dimer, troponin. On further evaluation found to have bilateral pulmonary embolism, renal infarct, bilateral carotid stenosis. Bilateral pulmonary embolism/renal infarct/DVT: CTA chest:Pulmonary emboli noted in a right middle lobe segmental pulmonary artery, right lower lobe segmental pulmonary artery, and a left lower lobe segmental pulmonary artery.? renal infarct in the left kidney upper pole. Bilateral lower extremity Doppler vein: ?Positive for intraluminal thrombus right peroneal vein.? Positive for intraluminal thrombus left popliteal vein, peroneal vein, and ATV. CT chest abd pel wo con:??Hepatomegaly and hepatic steatosis Thyroid ultrasound: Normal CEA: 6.1 , CA125: 13.8 Initially on heparin Has been switched to Lovenox Will transition to? Eliquis on discharge. #NSTEMI: Cannot conclusively rule out NSTEMI type I.? Though it can be NSTEMI type II in the setting of PE. Patient has significant smoking history, has carotid stenosis. Patient currently denies any significant chest pain, though she has complaint of worsening shortness of breath with exertion, could be related to COPD, anemia. Troponin trend: 809,694,759 2D echo: Normal LV systolic function with EF of 55 to 60%,Mild mitral annular calcification. Moderate mitral regurgitation,Trace tricuspid regurgitation. Nuclear stress test: : Large sized perfusion abnormality of basal to apical inferior, basal to mid ?inferolateral, mid anterolateral and apical lateral erickson with mild ?reversibility in mid inferolateral and apical lateral erickson.Old myocardial infarction in right coronary artery/circumflex artery ?territory with minimal courtney-infarct ischemia in circumflex artery territory. Currently she is on Plavix ,? statin? ,? therapeutic anticoagulation. Appreciate cardiology input: Current plan is outpatient follow-up. #Left renal infarct: Renal artery duplex: Inconclusive study: Due to large amount of bowel gas. Possibility of PFO exist Possible CRISTINE #Abdominal aortic anurysm (4.1 x 3.3 cm): Routine abdominal ultrasound #Two 3 mm nodules in the right lung apex: Repeat CT chest in a year # history of hemorrhoids, recent blood transfusion: Currently h/H:? is 7.7/ Transfuse 1 unit PRBC Monitor H&H Ac CVA: CT head without contrast: No acute intracranial Pathology CTA Head and neck: bilateral carotid stenosis. MRI brain without contrast:?Small focus of restricted diffusion involving the LEFT frontoparietal junction consistent with acute ischemia. lipid panel: Triglyceride 82, total cholesterol 178, LDL 110, HDL 52 On Plavix, atorvastatin 80 mg daily. Most likely will need a work-up with cardiothoracic surgery for further carotid stenting versus carotid endarterectomy. Dr. Sousa was reached mixing tank operator, voicemail left. Can follow him as outpatient. Transaminitis: Could be secondary to multiple infarcts. Continue to monitor. Hepatitis B surface antigen negative, hep B core total antibody negative, hepatitis C antibody negative Hyponatremia: Cannot rule out SIADH. Improving. Urine lites, urinalysis.? Urine osmolality pending. Attestations Medical Necessity Statement*: Patient is still in hospital for management of Acute P/E, Anemia, monitoring of hemoglobin. Time Spent in Patient Care: Greater than 35 minutes (>than 50% of time spent in counselling and/or direct pt care on unit) . Coding Level of Care Code Acute Water Treatment Plant Repairer for g Fwd Exam Comprehensive Diagnoses Brain TIA G45.9 Carotid stenosis I65.29 Bilateral pulmonary embolism I26.99 DVT (deep venous thrombosis) I82.409 Renal infarct N28.0 Anemia D64.9 Elevated troponin R77.8 NSTEMI (non-ST elevated myocardial infarction) I21.4
[2021-10-27 11:59] VITALS: BP 100/54; PULSE 87; RESP 13; TEMP 36.8; O2SAT 98
--- NOTE | 2021-10-27 17:12 | PM.DCS ---
Discharge Providers Date of Admission: 10/25/21 00:39 Date of Discharge: October 27, 2021 Attending Provider at Admission: Neena Lai MD Attending Provider at Discharge: Rashel Dumont MD Primary Care Provider: Alexus Flowers DO Diagnoses at Discharge Discharge Diagnosis (1) Carotid stenosis: Status: Acute (2) Bilateral pulmonary embolism: Status: Acute (3) DVT (deep venous thrombosis): Status: Acute (4) Renal infarct: Status: Acute (5) Anemia: Status: Acute (6) Elevated troponin: Status: Acute (7) NSTEMI (non-ST elevated myocardial infarction): Status: Acute (8) CVA (cerebral vascular accident): Status: Acute Reason for Visit Reason for Visit: thought had stroke earlier Hospital Course Hospital Course HPI: Neena Lai MD 71 year old female without significant past medical history presented today with chief complaint of strokelike symptoms.? Around 4:30 PM her noticed that her face was deviating towards left side and she was not able to move her right arm this resolved within a minute.? After 10 minutes when she was in the kitchen her noticed that she was not able to speak properly, speech was garbled, this resolved as well within a minute.? Around 8:30 PM when she went to bed she woke up feeling very distressed, diaphoretic and experienced 1 brief episode of palpitation.? This time her took her to the hospital for further evaluation.? She did not experience any chest pain however endorsing midepigastric heartburn.? No nausea, vomiting, shortness of breath, orthopnea or PND.? No previous history of [place], CHF, coronary disease, stroke.? Recently received blood transfusion for bleeding associated with hemorrhoids.? Hemorrhoidectomy done by Dr. Yang. Hemoglobin has trickled down from 9-8 In the ER she has been diagnosed with NSTEMI high D-dimer requested CTA head neck and chest EKG without ischemic or infarctive changes, troponin significantly elevated 809 At the time of my evaluation there is no dysarthria, NIH 0, no focal deficit Patient is chest pain-free blood pressure 110/67 mmHg heart rate 84, sinus rhythm, she is saturating well on room air, not in any active distress Hospital course: During the hospital stay she was managed for Acute bilateral PE as well as DVT: CTA chest:Pulmonary emboli noted in a right middle lobe segmental pulmonary artery, right lower lobe segmental pulmonary artery, and a left lower lobe segmental pulmonary artery.? renal infarct in the left kidney upper pole. Bilateral lower extremity Doppler vein: ?Positive for intraluminal thrombus right peroneal vein.? Positive for intraluminal thrombus left popliteal vein, peroneal vein, and ATV. CT chest abd pel wo con:??Hepatomegaly and hepatic steatosis,Thyroid ultrasound: Normal, CEA: 6.1 , CA125: 13.8. Thyroid ultrasound: Normal thyroid ultrasound. Initially she was kept on heparin drip, later she was transitioned to subcu Lovenox, she was discharged on p.o. Eliquis, during the hospital stay she also required 1 unit PRBC transfusion, as her hemoglobin had dropped to 7.7, posttransfusion CBC was normal, he denied any hematuria, black stool,BRBPR. Recent history of anemia secondary to hemorrhoids, required blood transfusion at that time also. She was also managed for acute CVA: CT head without contrast: No acute intracranial Pathology CTA head and neck bilateral carotid stenosis. MRI brain without contrast:?Small focus of restricted diffusion involving the LEFT frontoparietal junction consistent with acute ischemia. lipid panel: Triglyceride 82, total cholesterol 178, LDL 110, HDL 52, Initially She Was kept on Plavix, aspirin, atorvastatin 80 mg daily. She was discharged on Eliquis and aspirin. For bilateral carotid artery stenosis:She will follow Dr. Sousa as an outpatient for CEA. She was also managed for NSTEMI most likely type II: She denied any chest pain, 2D echo: Normal LV systolic function with EF of 55 to 60%,Mild mitral annular calcification. Moderate mitral regurgitation,Trace tricuspid regurgitation. Nuclear stress test: : Large sized perfusion abnormality of basal to apical inferior, basal to mid ?inferolateral, mid anterolateral and apical lateral erickson with mild ?reversibility in mid inferolateral and apical lateral erickson.Old myocardial infarction in right coronary artery/circumflex artery ?territory with minimal courtney-infarct ischemia in circumflex artery territory. Current plan is to follow cardiology as an outpatient. She also had renal infarct in the left kidney upper pole: ( There is a 2.3 cm x 2.0 cm wedge-shaped hypodensity in the left kidney upper pole ) : Had no hematuria, no flank pain, renal artery duplex was done Which was inconclusive, due to large amount of bowel gas, possibility of PFO Exist, for which it has been decided to possibly do CRISTINE as an outpatient. She was also noted to have abdominal aortic aneurysm: ?4.1 cm x 3.3 cm. This can be followed as an outpatient: With Routine abdominal ultrasound: She also had ?Two 3 mm nodules in the right lung apex: Which has to be followed with routine low-dose CT chest with contrast in 12 months. Patient responded well to above medical management and is being discharged in stable condition to home she will follow with primary care physician, cardiology and cardiothoracic surgery as outpatient. Physical Exam Const: COMMON NORMALS: patient oriented x3 HENMT: COMMON NORMALS: normocephalic and atraumatic HEAD & SCALP: normocephalic and atraumatic Eye: GENERAL EYE: appearance normal, both eyes and all related structures Chest: CHEST: Yes Symmetrical chest wall rise Resp: COMMON NORMALS: normal respiratory effort, No retractions, No use of accessory muscles and clear to auscultation bilaterally EFFORT & INSPECTION: Yes symmetric chest movement AUSCULTATION: clear to auscultation bilaterally Cardio: COMMON NORMALS: regular rate, regular rhythm, S1 normal heart sound present, S2 normal heart sound present, No gallops present (Cardio), No murmurs present (Cardio), No rub (Cardio) and Peripheral pulses 2+ throughout RATE: regular rate RHYTHM: regular rhythm HEART SOUNDS: S1 normal heart sound present and S2 normal heart sound present PERIPHERAL PULSES: Peripheral pulses 2+ throughout GI: COMMON NORMALS: Normal to inspection, nondistended, normoactive bowel sounds present, Soft to palpation, non-tender, No hepatosplenomegaly present and no masses AUSCULTATION: Yes normoactive bowel sounds PALPATION: Yes Soft to palpation and Yes No hepatosplenomegaly present RECTAL EXAM: deferred Extremity: COMMON NORMALS: no clubbing, cyanosis or edema and no pedal edema Neuro: COMMON NORMALS: patient oriented x3 Discharge Data Studies Completed and Pending Completed Studies During Hospitalization Category Date Time Status CT chest abdomen pelvis [CT chest abd pel wo con] Cat Scan 10/25/21 11:[address] head wo con* [id number] Stat Cat Scan 10/24/21 22:22 Completed CTA PE [CT angio chest PE protcl [id number]] Urgent Cat Scan 10/25/21 00:28 Completed CTA head neck [CT angio headneck* [id number]] Urgent Cat Scan 10/25/21 00:28 Completed Sestamibi Stress Test Request Routine Exams 10/25/21 11:28 Completed XR chest 1V portable [id number] Stat Exams 10/24/21 23:10 Completed MR head wo con* [id number] Routine MRI 10/26/21 09:30 Completed NM mitzi perf SPECT r/s* [id number] Routine Nuc Med 10/26/21 11:28 [place] [id number] Routine Ultrasound 10/25/21 02:28 Completed CV. echo complete* [id number] Routine Ultrasound 10/25/21 00:39 Completed US renal doppler [CV renal doppler [id number]] Routine Ultrasound 10/26/21 21:30 Completed US thyroid [id number] Routine Ultrasound 10/25/21 11:13 Completed Pending at discharge Category Date Time Status Anti DNASE B Antibody Routine Lab 10/25/21 11:59 Results CBC Auto Diff [Complete Blood Count w/Auto] AM LABS Lab 10/28/21 04:00 Ordered CBC Auto Diff [Complete Blood Count w/Auto] AM LABS Lab 10/29/21 04:00 Ordered CMP [Comprehensive Metabolic Panel] AM LABS Lab 10/28/21 04:00 Ordered Factor 5 Leiden Mutation Stat Lab 10/25/21 11:59 Received Factor VIII Activity Clotting Routine Lab 10/25/21 11:59 Results [facility] DEISY Profile Routine Lab 10/25/21 11:59 Results Platelet Count Q2D Lab 10/29/21 04:00 Ordered Urinalysis Routine Lab 10/25/21 11:17 Ordered Urine Lytes [Urine Random Lytes] Routine Lab 10/25/21 11:17 Ordered Von Willebrand Factor AG Routine Lab 10/25/21 11:59 Results Radiology Impressions Head CT 10/24/21 22:22 IMPRESSION: 1. No acute intracranial findings. 2. If there is a strong clinical concern for acute ischemia/infarct, short interval follow-up or MRI/diffusion imaging correlation may also be considered. Chest X-Ray 10/24/21 23:10 IMPRESSION: 1. Cardiomegaly and mild pulmonary vascular congestion. 2. Bilateral mid to lower lung field right greater left ground-glass airspace infiltrates. Chest CTA 10/25/21 00:28 IMPRESSION: 1. Pulmonary emboli noted in a right middle lobe segmental pulmonary artery, right lower lobe segmental pulmonary artery, and a left lower lobe segmental pulmonary artery. 2. 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 3. Partially visualized abdominal aortic aneurysm measuring 4.1 cm x 3.3 cm. COMMENTS: Consistent with the [employer]'s Incidental Findings Committee white paper (J Am Tiffany Radiol 2018): Any incidental renal lesion less than 1 cm or classified as too small to characterize, or any incidental cystic renal lesion characterized as simple-appearing, is likely benign. No follow-up imaging is recommended for these lesions per consensus recommendations based on imaging criteria. ADDENDUM: 10/25/21 0237 The findings were discussed with Dr. Lai on 10/25/2021 2:36 AM CDT. Head/Neck CTA 10/25/21 00:28 IMPRESSION: 1. Faint contrast in an apparent tiny right vertebral artery. Two prominent stenoses in the left vertebral artery. Two moderate stenoses in the left ICA. Other stenoses detailed above. 2. 15 mm lytic mass in the right frontal bone. IMPRESSION: 1. No normal right vertebral artery consistent with occlusion of at least its proximal aspect. Questionable enhancement in a tiny right vertebral artery or collateral vessel in the upper cervical spine. Multiple mild stenoses in the left vertebral artery. 2. Approximately 80% and 60-70% stenoses in the proximal right ICA. Approximately 80% stenosis of the origin of the left ICA as well. 3. Mass anterior to the left epiglottis, cause unclear. 4. Emphysema. Increased interstitial markings in both lung apices such that pulmonary edema not excluded. Two 3 mm nodules in the right lung apex. For patients at low risk (minimal or absent history of smoking and of other known risk factors), no routine follow-up is indicated. For patients at high risk (history of smoking or of other known risk factors), consider optional CT Chest at 12 months. (Reference: Austen) 5. Chronic spinal disease detailed above. REFERENCES: 1. [place] King et al. Guidelines for Management of Incidental Pulmonary Nodules Detected on CT Images: From the Fleischner Society 2017. Radiology. 2017;284(1):228-243. 2. NASCET CRITERIA. The degree of internal carotid artery stenosis is based on NASCET criteria. Normal is no stenosis. Mild is less than 50% stenosis. Moderate is 50-69% stenosis. Severe is 70% to 99% stenosis. Total occlusion is no detectable patent lumen. ADDENDUM: 10/25/21 0308 THIS REPORT CONTAINS FINDINGS THAT MAY BE CRITICAL TO PATIENT CARE. The findings were verbally communicated via telephone conference with Dr. Lai at 3:03 AM CDT on 10/25/2021. The findings were acknowledged and understood. Venous Duplex 10/25/21 02:28 IMPRESSION: 1. Positive for intraluminal thrombus right peroneal vein. 2. Positive for intraluminal thrombus left popliteal vein, peroneal vein, and ATV. ADDENDUM: 10/25/21 9737 Findings were discussed with RONAL Nugent at 10/25/2021 11:35 AM CDT. Chest/Abdomen/Pelvis CT 10/25/21 11:13 IMPRESSION: 1. Heavy coronary artery calcifications. 2. No acute findings. 3. Postoperative hardware right shoulder IMPRESSION: 1. Hepatomegaly and hepatic steatosis. 2. Gallbladder filled with hyperdense liquid. 3. Benign cyst left kidney otherwise negative urinary tract. 4. Abdominal aortic aneurysm 5. Severe lumbar spine osteoarthritis. COMMENTS: Consistent with the [employer]'s Incidental Findings Committee white paper (J Am Tiffany Radiol 2018): Any incidental renal lesion less than 1 cm or classified as too small to characterize, or any incidental cystic renal lesion characterized as simple-appearing, is likely benign. No follow-up imaging is recommended for these lesions per consensus recommendations based on imaging criteria. Thyroid Ultrasound 10/25/21 11:13 IMPRESSION: Normal thyroid ultrasound. Head MRI 10/26/21 09:30 IMPRESSION: Some images degraded by motion artifact. 1. Small focus of restricted diffusion involving the LEFT frontoparietal junction consistent with acute ischemia measuring 6 mm. 2. Mild associated edema in this area. No mass effect or midline shift. 3. Advanced small vessel changes with moderate parenchymal volume loss. 4. Advanced atrophy anterior temporal lobes and hippocampal formations asymmetric compared to the remainder of the brain parenchyma. This can be seen with frontotemporal or Alzheimer's dementia in the appropriate clinical setting. 5. RIGHT frontal calvarial lesion described on the head CT demonstrates T1 hyperintensity compatible with incidental benign hemangioma. Notified Dr. Tim HANCOCK at 10/26/2021 1:00 PM. Laboratory Results WBC 9.3 10^3/uL (4.0-10.0) 10/27/21 04:25 RBC 3.42 10^6/uL (4.1-5.3) L 10/27/21 04:25 Hgb 8.5 g/dL (11.5-15.3) L 10/27/21 04:25 Hct 28.0 % (37.0-47.0) L 10/27/21 04:25 MCV 81.9 fl (81-99) 10/27/21 04:25 MCH 24.9 pg (28.0-34.0) L 10/27/21 04:25 MCHC 30.4 g/dL (30.0-36.0) 10/27/21 04:25 RDW 17.4 % (12.1-15.1) H 10/27/21 04:25 Plt Count 462 10^3/cmm (130-400) H 10/27/21 04:25 Plt Count Cancelled 10/27/21 04:25 MPV 9.0 fL (7.4-10.4) 10/27/21 04:25 Neut % (Auto) 66.3 % 10/27/21 04:25 Lymph % (Auto) 18.7 % 10/27/21 04:25 Humphreys % (Auto) 11.3 % 10/27/21 04:25 Eos % (Auto) 2.6 % 10/27/21 04:25 Baso % (Auto) 0.6 % 10/27/21 04:25 Neut # (Auto) 6.13 10^3/uL (1.8-7.7) 10/27/21 04:25 Lymph # (Auto) 1.7 10^3/uL (0.8-4.8) 10/27/21 04:25 Humphreys # (Auto) 1.1 10^3/uL (0.2-0.9) H 10/27/21 04:25 Eos # (Auto) 0.2 10^3/uL (0.0-0.8) 10/27/21 04:25 Baso # (Auto) 0.1 10^3/uL (0.0-0.1) 10/27/21 04:25 Nucleated RBC % (auto) 0 % 10/27/21 04:25 Nucleated RBCs # 0.0 /100WBC 10/27/21 04:25 PT 13.70 SECONDS (12.1-14.9) 10/24/21 22:11 INR 1.02 (0.8-1.2) 10/24/21 22:11 APTT 65.5 SECONDS (23.9-36.7) H 10/26/21 06:56 D-Dimer 3.52 ug/mIFEU (0-0.59) H 10/24/21 22:11 Sodium 137 mmol/L (136-145) 10/27/21 04:25 Potassium 4.1 mmol/L (3.5-5.1) 10/27/21 04:25 Chloride 104 mmol/L (98-107) 10/27/21 04:25 Carbon Dioxide 23 mmol/L (22-29) 10/27/21 04:25 Anion Gap 14.1 (5-19) 10/27/21 04:25 BUN 12 mg/dL (8-23) 10/27/21 04:25 Creatinine 0.6 mg/dL (0.5-0.9) 10/27/21 04:25 GFR Calculation Not Reportable 10/27/21 04:25 Glucose 99 mg/dL (65-115) 10/27/21 04:25 POC Glucose 122 mg/dL (70-110) H 10/24/21 22:36 Estimat Average Glucose 100 10/25/21 04:15 Hemoglobin A1c 5.1 % (4.0-6.0) 10/25/21 04:15 Serum Osmolality 280 mOsm/kg (278-305) 10/25/21 04:15 Calculated Osmolality 284 mOsm/kg (285-295) L 10/27/21 04:25 Uric Acid 6.0 mg/dL (2.4-5.7) H 10/25/21 04:15 Calcium 8.4 mg/dL (8.5-10.5) L 10/27/21 04:25 Magnesium 2.1 mg/dL (1.7-2.3) 10/25/21 04:15 Iron 23 ug/dL (37-145) L 10/25/21 04:15 TIBC 368 mcg/dl 04/24/22 04:15 % Saturation 6.2 % (20-50) L 10/25/21 04:15 Unsat Iron Binding 345 ug/dL (112-347) 10/25/21 04:15 Total Bilirubin 0.4 mg/dL (0.15-1.2) 10/26/21 06:56 AST 63 U/L (0-32) H 10/26/21 06:56 ALT 105 U/L (0-33) H 10/26/21 06:56 Alkaline Phosphatase 131 IU/L (35-105) H 10/26/21 06:56 Troponin T Baseline 809 ng/L (0-10) H* 10/24/21 22:11 Troponin T 120 Minute 694.3 ng/L (0-10) H 10/25/21 00:50 Delta Troponin T -114.7 ABS# (0-10) L 10/25/21 00:50 Troponin T Hi Sens 6Hr 759.5 ng/L (0-10) H 10/25/21 04:15 Troponin T Hi Sens 6Hr Delta -49.5 ng/L (0-12) L 10/25/21 04:15 NT-Pro-B Natriuret Pep 3674 pg/mL (0-125) H 10/24/21 22:11 Total Protein 6.4 g/dL (6.6-8.7) L 10/26/21 06:56 Albumin 3.5 g/dL (3.5-5.2) 10/26/21 06:56 Globulin 2.9 g/dL (1.3-4.6) 10/26/21 06:56 Triglycerides 82 mg/dL (0-150) 10/25/21 04:15 Triglycerides Cancelled 10/25/21 04:15 Cholesterol 178 mg/dL (0-200) 10/25/21 04:15 Cholesterol Cancelled 10/25/21 04:15 LDL Cholesterol, Calc 110 mg/dL (50-129) 10/25/21 04:15 LDL Cholesterol, Calc Cancelled 10/25/21 04:15 Total VLDL Cholesterol Cancelled 10/25/21 04:15 HDL Cholesterol 52 mg/dL (60-100) L 10/25/21 04:15 HDL Cholesterol Cancelled 10/25/21 04:15 LDL/HDL Ratio 2.12 RATIO (0.00-3.22) 10/25/21 04:15 Cholesterol/HDL Ratio 3.42 mg/dL (0.0-4.40) 10/25/21 04:15 Cholesterol/HDL Ratio Cancelled 10/25/21 04:15 Carcinoembryonic Ag 6.1 ng/mL (0.0-4.7) H 10/25/21 04:15 CA 125 Antigen 13.8 U/mL (0-35) 10/25/21 04:15 TSH 2.62 uIU/mL (0.27-4.20) 10/25/21 04:15 TSH Cancelled 10/25/21 04:15 Urine Osmolality 421 mOsm/kg (50-1200) 10/25/21 02:15 TYRON-1 Antibody <1.0 neg AI (<1.0 NEG) 10/25/21 11:59 SS-A/Ro IgG Antibody <1.0 neg AI (<1.0 NEG) 10/25/21 11:59 SS-B/La IgG Antibody <1.0 neg AI (<1.0 NEG) 10/25/21 11:59 Sm (Packer) Antibody <1.0 neg AI (<1.0 NEG) 10/25/21 11:59 Anti-nRNP/Sm IgG Ab <1.0 neg AI (<1.0 NEG) 10/25/21 11:59 Scl-70 Scleroderma Ab <1.0 neg AI (<1.0 NEG) 10/25/21 11:59 Anti-ds DNA IgG Ab 2 IU/mL 10/25/21 11:59 Hep Bs Antigen Non-reactive (Nonreactive) 10/27/21 04:25 Hep Bs Antibody 47.8 (11.5-1000) 10/27/21 04:25 Hep B Core Total Ab Non-reactive (Nonreactive) 10/27/21 04:25 Hepatitis C Antibody Non-reactive (Nonreactive) 10/27/21 04:25 HIV 1&2 Ab & HIV 1 Ag Non-reactive (Non-Reactiv) 10/25/21 11:59 HIV 1&2 Antibody Non-reactive (Non-Reactiv) 10/25/21 11:59 Blood Type A Positive 10/24/21 00:00 Rho(D) Type Positive 10/24/21 00:00 Antibody Screen Negative 10/24/21 00:00 Crossmatch See Detail 10/24/21 00:00 Vitals Last Vital Signs Temp 98.2 F 10/27/21 11:59 Pulse 87 10/27/21 11:59 Resp 13 10/27/21 11:59 BP 100/54 10/27/21 11:59 Pulse Ox 98 10/27/21 11:59 Discharge Plan Discharge Patient Disposition: Home Prescriptions: New aspirin 81 mg Tablet,Delayed Release (Dr/Ec) 81 mg PO DAILY 30 Days Qty: 30 3RF Eliquis DVT-PE Treat 30D Start 5 mg (74 tabs) tablets,dose pack 5 mg PO BID Qty: 74 3RF Rx Instructions: Take 10 mg po BID for Next 6 days starting tomorrow. Protonix 40 mg tablet,delayed release (DR/EC) 40 mg PO DAILY Qty: 30 0RF atorvastatin 40 mg Tablet 40 mg PO BEDTIME 30 Days Qty: 30 3RF Continued lactulose 10 gram/15 mL solution 15 ml PO BID Qty: 237 2RF Discharge Orders: Discharge Order (Routine); Ordered 10/27/21 Ordered By: Rashel Dumont Other Ambulatory Orders: Complete Blood Count w/Auto (Routine) Timeframe: 3 Days Location: Determined by Patient Ordered By: Rashel Dumont Referrals: Garett Sousa MD [Physician] - 1 week () Alexus Flowers DO [Primary Care Provider] - 1 week Lovely Oliveira MD [Physician] - 2 weeks Discharge Diet: Regular Discharge Activity: Resume usual activity Patient Instructions: Aspirin (By mouth), Atorvastatin (By mouth), Pantoprazole (By mouth), Apixaban (By mouth), Stroke (GEN), Opioid Safety, Stroke Stoplight Discharge Attestations Time Spent in Discharge Care*: greater than 30 min Specific Discharge Activities: educating patient, educating and/or supporting family/caregiver, discussing with pcp/other providers, discussing with disease case manager rn/social workers/dc planners, documenting/other paperwork and evaluating patient/reviewing data Quality Metrics Clinical Quality Measures [ No reported AMI, CVA or VTE this stay] Coding Level of Care Code Acute Chg FW DC note Diagnoses Carotid stenosis I65.29 Bilateral pulmonary embolism I26.99 DVT (deep venous thrombosis) I82.409 Renal infarct N28.0 Anemia D64.9 Elevated troponin R77.8 NSTEMI (non-ST elevated myocardial infarction) I21.4 CVA (cerebral vascular accident) I63.9
[2021-10-27] MEDS: apixaban 5 mg Tablet 10 MG PO (17:47)
[2021-10-27 17:57] VITALS: BP 100/54; PULSE 87; RESP 13; TEMP 36.8; O2SAT 98
--- NOTE | 2021-10-27 21:40 | PM.PN ---
Subjective Subjective: She feels better and denies any complaints today. Medications: Reviewed: Yes Vitals/I&O/Wt Last Vital Signs Temp 98.2 F 10/27/21 17:57 Pulse 87 10/27/21 17:57 Resp 13 10/27/21 17:57 BP 100/54 10/27/21 17:57 Pulse Ox 98 10/27/21 17:57 10/27/21 10/27/21 10/27/21 06:59 14:59 22:59 Intake Total 160 / 1676 360 / 360 Balance 160 / 1676 360 / 360 Physical Exam Narrative: GENERAL: Averagely built and averagely nourished in no acute distress HEENT: Extraocular movement intact. No pallor or icterus. NECK: central trachea, No JVD, + carotid bruit. CARDIOVASCULAR SYSTEM: S1-S2 regular. No murmur rubs or gallops. RESPIRATORY SYSTEM: Chest clear to auscultation. No wheezes rhonchi or rubs heard. No use of accessory muscles. ABDOMEN: Soft, nontender and nondistended. Normal bowel sounds present. EXTREMITIES: No cyanosis or clubbing. [No edema]. No signs of chronic venous insufficiency. TOPPIECE CUTTER: Patient is alert oriented ?3. SKIN: Normal turgor and temperature. No breakdown, rash or nail changes noted. [] PSYCH: Normal insight and judgment. No suicidal or homicidal ideations. Data : 10/27/21 04:25 10/27/21 04:25 A&P Assessment and plan (1) CVA (cerebral vascular accident): acute CVA -on ASA and statin. -stop plavix d/t concern for triple therapy Status: Acute (2) Bilateral pulmonary embolism: Recent hemarrhoid sx causing limited mobility -first episode -on lovenox; to be started on Eliquis on discharge Status: Acute (3) DVT (deep venous thrombosis): Bilateral leg DVT on lovenox; to be started on Eliquis on discharge Status: Acute (4) NSTEMI (non-ST elevated myocardial infarction): likely type 2 in setting of recent CVA, PE and mildly pulmonary congestion on arrival. -possible old VA in inferior/IL wall with mild courtney-infarct ischemia on stress test -remaing CP free -continue ASA and high intensity statin. Status: Acute (5) Carotid stenosis: will see Dr. Sousa outpatient Status: Acute (6) Renal infarct: -May need to consider underlying PFO. -I spent 30 minutes with patient, , daughter and had a long discussion about possible CRISTINE. Patient would like to be discharged and do the test outpatient. -f/u in 2 weeks in [facility] Status: Acute (7) Anemia: s/p 1 unit of pRBC . Status: Acute Plan Thrombocytosis Left renal infarct Abdominal aortic anurysm (4.1 x 3.3 cm) Abnormal liver enzymes Hepatomegaly and hepatic steatosis. Thank you for allowing me to participate in patient's care. Please feel free to call with questions and concerns. Attestations Medical Necessity Statement*: stable to be discharged. Coding Level of Care Code Acute Senior Interactive Producer for Jasson Pastrana Diagnoses Bilateral pulmonary embolism I26.99 DVT (deep venous thrombosis) I82.409 CVA (cerebral vascular accident) I63.9 NSTEMI (non-ST elevated myocardial infarction) I21.4 Carotid stenosis I65.29 Renal infarct N28.0 Anemia D64.9
[2021-10-28 22:02] LABS: Factor VIII Activity Clotting 293 % normal (50-180)
[2021-10-29 10:56] LABS: Von Willebrand Factor AG 246 % (50-217)
[2021-11-01 20:38] LABS: Factor 5 Leiden Mutation NEGATIVE
== END 2021-10-27 17:58 | disposition home or self-care (01) | DRG 175 ==
LOC: ER 10-25 00:33 → MEDSURG 10-25 00:36
PROVIDERS: Emergency Medicine; Nurse Practitioner Family; Student in an Organized Health Care Education/Training Program; Admitting Provider Internal Medicine; Emergency Provider Emergency Medicine; PCP Family Medicine; Visit Provider Internal Medicine
DX: I26.99 Other pulmonary embolism without acute cor pulmonale (principal); I63.9 Cerebral infarction, unspecified; I21.A1 Myocardial infarction type 2; E87.1 Hypo-osmolality and hyponatremia; I82.453 Acute embolism and thrombosis of peroneal vein, bilateral; I82.432 Acute embolism and thrombosis of left popliteal vein; N28.0 Ischemia and infarction of kidney; R29.700 NIHSS score 0; I10 Essential (primary) hypertension; F17.210 Nicotine dependence, cigarettes, uncomplicated; D64.9 Anemia, unspecified; I65.23 Occlusion and stenosis of bilateral carotid arteries; I71.4 Abdominal aortic aneurysm, without rupture; K76.0 Fatty (change of) liver, not elsewhere classified; R91.8 Other nonspecific abnormal finding of lung field; I34.0 Nonrheumatic mitral (valve) insufficiency; D75.839 Thrombocytosis, unspecified
CPT/HCPCS: 36415; 36416; 36430; 70450; 70496; 70498; 70551; 71045; 71250; 71275; 74176; 76536; 78452; 80048; 80053; 80061; 81241; 82378; 82962; 83036; 83540; 83550; 83735; 83880; 83930; 83935; 84443; 84484; 84550; 85014; 85018; 85025; 85240; 85246; 85378; 85610; 85730; 86215; 86225; 86235; 86304; 86704; 86706; 86803; 86850; 86900; 86920; 87340; 87806; 93005; 93306; 93970; 93975; 96360; 96372; 97110; 97161; 99285; A9500; C9113; J1644; J1650; J2270; J2785; J7030; P9016; Q9967

== ENCOUNTER 2021-11-02 08:42 | Outpatient (CLI) | payer MEDICARE, OTHER, SELFPAY ==
[2021-11-02 09:46] LABS: Basophils # 0.1 10^3/uL (0.0-0.1); Basophils % 0.6 %; Eosinophils # 0.3 10^3/uL (0.0-0.8); Eosinophils % 2.4 %; Hematocrit 34.7 % (37.0-47.0); Hemoglobin 10.3 g/dL (11.5-15.3); Lymphocytes # 1.7 10^3/uL (0.8-4.8); Lymphocytes % 15.1 %; Mean Corpuscular HGB Conc 29.7 g/dL (30.0-36.0); Mean Corpuscular Hemoglobin 24.6 pg (28.0-34.0); Mean Corpuscular Volume 82.8 fl (81-99); Mean Platelet Volume 8.7 fL (7.4-10.4); Monocytes % 9.1 %; Neutrophils # 7.98 10^3/uL (1.8-7.7); Neutrophils % 72.3 %; Nucleated Red Blood Cells % 0 %; Platelet Count 501 10^3/cmm (130-400); Red Blood Count 4.19 10^6/uL (4.1-5.3)
[2021-11-02 10:06] LABS: Alanine Aminotransferase 69 U/L (0-33); Albumin Level 4.1 g/dL (3.5-5.2); Alkaline Phosphatase 137 IU/L (35-105); Anion Gap 17.1 (5-19); Aspartate Amino Transferase 47 U/L (0-32); Blood Urea Nitrogen 11 mg/dL (8-23); Carbon Dioxide 25 mmol/L (22-29); Chloride 98 mmol/L (98-107); Globulin 3.3 g/dL (1.3-4.6); Glucose 111 mg/dL (65-115); Osmolality Calculated 282 mOsm/kg (285-295); Potassium 4.1 mmol/L (3.5-5.1); Sodium 136 mmol/L (136-145); Total Bilirubin 0.2 mg/dL (0.15-1.2); Total Protein 7.4 g/dL (6.6-8.7)
[2021-11-02 10:14] LABS: Calcium 8.8 mg/dL (8.5-10.5)
[2021-11-02 10:30] LABS: Glucose Urine UA Norm (Normal); Ketones Urine 1+ (Negative); Protein Urine Neg (Negative); Urine Appearance Hazy (CLEAR); Urine Color Dark Yellow (Yellow); pH Urine 5 (5-7)
[2021-11-02 10:31] LABS: Add Urine Culture? No; Add Urine Microscopic? YES; Bacteria Urine 2+ /hpf; Bilirubin Urine Neg (Negative); Blood Urine 3+ (Negative); Leukocyte Esterase Urine Trace (Negative); Nitrate Urine Negative (Negative); RBC Urine 40-50 /hpf (0-2); Urobilinogen Urine Norm (Negative)
[2021-11-02 10:39] LABS: Urine Random Chloride 74 mmol/L; Urine Random Sodium 41 mmol/L
[2021-11-02 11:00] LABS: Potassium, Radom Urine > 106 mmol/L
== END 2021-11-02 08:43 | disposition home or self-care (01) ==
LOC: LAB 08:48
PROVIDERS: PCP Family Medicine; Visit Provider Internal Medicine
DX: D64.9 Anemia, unspecified (principal)
CPT/HCPCS: 80053; 81001; 82436; 84133; 84300; 85025

== ENCOUNTER → 2021-11-05 12:18 | Outpatient (BNVA) | payer MEDICARE, OTHER, SELFPAY | PROVIDERS: PCP Family Medicine; Visit Provider Thoracic Surgery (Cardiothoracic Vascular Surgery) | DX: I65.23 Occlusion and stenosis of bilateral carotid arteries (principal); Z87.891 Personal history of nicotine dependence | CPT/HCPCS: 99203 ==

== ENCOUNTER → 2021-11-17 12:38 | Outpatient (BNVA) | payer MEDICARE, OTHER, SELFPAY | PROVIDERS: PCP Family Medicine; Visit Provider Nurse Practitioner Family | DX: I25.2 Old myocardial infarction (principal); Z87.891 Personal history of nicotine dependence; J39.2 Other diseases of pharynx; I63.9 Cerebral infarction, unspecified | CPT/HCPCS: 31575; 99204; 99213 ==

== ENCOUNTER → 2021-11-24 09:45 | Outpatient (BNVA) | payer MEDICARE, OTHER, SELFPAY | PROVIDERS: PCP Family Medicine; Visit Provider Surgery | DX: Z98.890 Other specified postprocedural states (principal) | CPT/HCPCS: 99213 ==

== ENCOUNTER 2021-12-08 11:54 | Outpatient (CLI) | payer MEDICARE, OTHER, SELFPAY ==
[2021-12-08 14:20] LABS: Adenovirus Not Detected (NOT DETECT); Chlamydia Pneumoniae Not Detected (NOT DETECT); Coronavirus 229E,HKU1,NL63,OC4 Not Detected (NOT DETECT); Human Metapneumovirus Not Detected (NOT DETECT); Human Rhinovirus/Enterovirus Not Detected (NOT DETECT); Influenza A Not Detected (NOT DETECT); Influenza A H1 Not Detected (NOT DETECT); Influenza A H1-2009 Not Detected (NOT DETECT); Influenza A H3 Not Detected (NOT DETECT); Influenza B Not Detected (NOT DETECT); Mycoplasma Pneumoniae Not Detected (NOT DETECT); Parainfluenza Virus Type 1 Not Detected (NOT DETECT); Parainfluenza Virus Type 2 Not Detected (NOT DETECT); Parainfluenza Virus Type 3 Not Detected (NOT DETECT); Parainfluenza Virus Type 4 Not Detected (NOT DETECT); Respiratory Syncytial Virus A Not Detected (NOT DETECT); Respiratory Syncytial Virus B Not Detected (NOT DETECT); SARS-COV-2 Not Detected (NOT DETECT)
== END 2021-12-08 11:55 | disposition home or self-care (01) ==
LOC: LAB 11:57
PROVIDERS: PCP Family Medicine; Visit Provider Internal Medicine Cardiovascular Disease
DX: I63.9 Cerebral infarction, unspecified (principal)
CPT/HCPCS: 87635

== ENCOUNTER 2021-12-11 10:14 | Day surgery (SDC) | payer MEDICARE, OTHER, SELFPAY ==
[2021-12-08 09:47] VITALS: BMI 23.6
[2021-12-11 10:53] VITALS: BP 152/83; PULSE 83; RESP 18; TEMP 36.2; O2SAT 98
[2021-12-11] MEDS: sodium chloride 0.9% 1,000 ML 30 ML IV (11:02)
--- NOTE | 2021-12-11 11:20 | ANES.PREANE2 ---
Pre-Anesthetic Assessment Height/Weight: Height 1.73 m Weight 70.307 kg Temp Pulse Resp BP Pulse Ox 97.1 F L 83 18 152/83 98 12/11/21 10:53 12/11/21 10:53 12/11/21 10:53 12/11/21 10:53 12/11/21 10:53 Preop Diagnosis: Hemorrhoids Operation Date: 12/11/21 12:00 Proposed Procedures p CRISTINE(Not Applicable) - Lovely Oliveira MD Familial anesthetic complications: none Was Beta Betito taken within 24 hours: N/A Was Clonidine taken within 24 hours: N/A Last intake: Intake Last Liquid Date 12/10/21 Last Liquid Time 16:00 Last Solid Date 12/10/21 Last Solid Time 16:00 Social No alcohol and No tobacco Exam alert, oriented x 3, clear to auscultation bilaterally and regular rate & rhythm Airway Mallampati: Class III Dentition: full Pulmonary None reported CV/HEM None reported None reported Hepatic None reported GI Gastroesophageal Reflux Disease Metabolic Hyperlipidemia Neuropsych mini TIAs Anesthetic Plan ASA status: 2 Anesthesia: MAC Risk of > 500 ml blood loss (7ml/kg in children): No Medications/Allergies Home Medications Medication Instructions Recorded Confirmed Last Taken Type aspirin 81 mg tablet,delayed 81 mg PO DAILY 30 Days #30 tab 10/27/21 12/08/21 12/10/21 Rx release atorvastatin 40 mg tablet 40 mg PO BEDTIME 30 Days #30 tab 10/27/21 12/08/21 12/10/21 Rx pantoprazole 40 mg tablet,delayed 40 mg PO DAILY #90 tab 11/17/21 12/08/21 12/10/21 Rx release (Protonix) apixaban 5 mg tablet (Eliquis) 5 mg PO BID #90 tab 12/01/21 12/08/21 12/11/21 Rx ascorbic acid (vitamin C) 500 mg 500 mg PO DAILY 12/10/21 12/10/21 12/10/21 History tablet (Vitamin C) cholecalciferol (vitamin D3) 25 25 mcg PO DAILY 12/10/21 12/10/21 12/10/21 History mcg (1,000 unit) capsule (Vitamin D3) cyanocobalamin (vitamin B-12) 5,000 mcg PO DAILY 12/10/21 12/10/21 12/10/21 History 2,000 mcg tablet,extended release (Vitamin B-12 ER) ferrous sulfate 325 mg (65 mg 325 mg PO DAILY 12/10/21 12/10/21 12/10/21 History iron) capsule,extended release glucosamine sulf dipot 1 cap PO DAILY 12/10/21 12/10/21 12/10/21 History chlr,msm,chond 550 mg-C 30 mg-alex 1 mg capsule (Glucosamine Chondroitin) lactulose 10 gram/15 mL oral 15 ml PO BID PRN 12/10/21 12/08/21 12/10/21 History solution magnesium oxide 400 mg PO DAILY 12/10/21 12/10/21 12/10/21 History iqbecabj-toz-keowi acid 0.4 1 tab PO DAILY 12/10/21 12/10/21 12/10/21 History mg-lycopene 300 mcg-lutein 250 mcg tablet red yeast rice 600 mg capsule 600 mg PO DAILY 12/10/21 12/10/21 12/10/21 History tumeric 100 mg-ag 150 mg-olive 1 cap PO DAILY 12/10/21 12/10/21 12/10/21 History 50 mg-oreg 150 mg-caprylate capsule Allergies Allergy/AdvReac Type Severity Reaction Status Date / Time shellfish derived Allergy Unknown Unknown Verified 12/11/21 10:45 Penicillins Allergy Unknown Verified 12/11/21 10:45 Current Medications Generic Name Dose Route Start Last Admin Trade Name Freq PRN Reason Stop Dose Admin Sodium Chloride 1,000 mls @ 30 mls/hr 12/11/21 11:00 12/11/21 11:02 Sodium Chloride 0.9% IV 12/12/21 10:59 30 mls/hr .Q24H JACKIE Administration PFSH Anesthesia Medical History Anemia Bilateral pulmonary embolism Brain TIA Carotid stenosis CVA (cerebral vascular accident) DVT (deep venous thrombosis) Elevated troponin Hypertension NSTEMI (non-ST elevated myocardial infarction) Renal infarct Surgical History (Updated 11/24/21 @ 13:15 by Shay Yang MD) H/O hemorrhoidectomy (10/15/21) History of colonoscopy History of open reduction and internal fixation (ORIF) procedure right shoulder Family History Sister CAD (coronary artery disease) Artery disease [place] at age 65 Social History Smoking and tobacco status: former smoker Quit status (tobacco): has quit using tobacco Year quit tobacco: 2021 Former quit date comment: 1/2 pack per day x 45 years Household members: spouse Housing: House Data Anesthesia Cardiac Studies: Echocardiogram 10/25/21 Sestamibi Stress Test (Cardiology) 10/25/21
--- NOTE | 2021-12-11 11:46 | USCV_ITS ---
Miriam Courtney Age: 71 Gender: F : 1950 Exam Date: 12/11/2021 12:24 Ordering Phys: Lovely Oliveira MD ([email or web address]) Technologist: ANN Exam Location: [facility] [place] Indication: Cerebrovascular accident BP: 152 / 83 HR: 104 Rhythm: Sinus Technical Quality: Adequate MEASUREMENTS (Male / Female) Normal Values Medications Patient given IV sedation by anesthesia service, for details please refer to the anesthesia report. Complications Intubation easy. attempts x 1. No blood on probe post procedure. Patient tolerated procedure well. Proc. Components The patient was brought to the [facility] examination room in a fasting state after obtaining an informed consent. FINDINGS Left Ventricle Normal left ventricular size, systolic function and wall thickness, with no regional wall motion abnormalities. Left ventricular ejection fraction is estimated at 70 %. Right Ventricle Normal right ventricular size and systolic function. Right Atrium Normal right atrial size. Left Atrium Normal left atrial size. No left atrial mass or thrombus visualized. LA Appendage Normal left atrial appendage. Normal flow velocities in the left atrial appendage. No thrombus visualized in the left atrial appendage. IA Septum Aneurysmal interatrial septum. No patent foramen ovale or ASD by color doppler and bubble study. Mitral Valve Mildly thickened mitral valve. No mitral valve stenosis. Trace mitral valve regurgitation. Aortic Valve Structurally normal trileaflet aortic valve. No aortic valve stenosis. Trace aortic valve regurgitation. Tricuspid Valve Structurally normal tricuspid valve. No tricuspid valve stenosis. Trace tricuspid valve regurgitation. Pulmonic Valve Structurally normal pulmonic valve. No pulmonary valve stenosis. No significant pulmonary valve regurgitation. Pericardium No pericardial effusion. Aorta Normal size aortic root and proximal ascending aorta. No aortic dilation, aneurysm or dissection. Grade 3 atheroma in proximal and mid descending aorta. CONCLUSIONS 1. Normal left ventricular size, systolic function and wall thickness, with no regional wall motion abnormalities. Left ventricular ejection fraction is estimated at 70 %. 2. Aneurysmal interatrial septum. No patent foramen ovale. 3. Grade 3 atheroma in proximal and mid descending aorta. Lovely Oliveira MD (Electronically Signed) Final Date: 14 December 2021 00:04 S
--- NOTE | 2021-12-11 12:06 | P.HP_ITS ---
Same Day Surgery H&P Indication for Procedure/HPI DATE OF PROCEDURE: December 11, 2021 CHIEF COMPLAINT/INDICATIONFOR SURGICAL PROCEDURE: 71 yo patient with CVA, bilateral DVT/PE and left kidney infarct. PREOP DIAGNOSIS: Recent CVA, evaluate for PFO PLANNED PROCEDURE: Operation Date: 12/11/21 12:00 Proposed Procedures p CRISTINE(Not Applicable) - Lovely Oliveira MD Medications/Allergies* Home Medications Medication Instructions Recorded Confirmed Type ascorbic acid (vitamin C) 500 mg 500 mg PO DAILY 12/10/21 12/10/21 History tablet (Vitamin C) cholecalciferol (vitamin D3) 25 25 mcg PO DAILY 12/10/21 12/10/21 History mcg (1,000 unit) capsule (Vitamin D3) cyanocobalamin (vitamin B-12) 5,000 mcg PO DAILY 12/10/21 12/10/21 History 2,000 mcg tablet,extended release (Vitamin B-12 ER) ferrous sulfate 325 mg (65 mg 325 mg PO DAILY 12/10/21 12/10/21 History iron) capsule,extended release glucosamine sulf dipot 1 cap PO DAILY 12/10/21 12/10/21 History chlr,msm,chond 550 mg-C 30 mg-alex 1 mg capsule (Glucosamine Chondroitin) lactulose 10 gram/15 mL oral 15 ml PO BID PRN 12/10/21 12/08/21 History solution magnesium oxide 400 mg PO DAILY 12/10/21 12/10/21 History lbasmfin-znc-ufoil acid 0.4 1 tab PO DAILY 12/10/21 12/10/21 History mg-lycopene 300 mcg-lutein 250 mcg tablet red yeast rice 600 mg capsule 600 mg PO DAILY 12/10/21 12/10/21 History tumeric 100 mg-ag 150 mg-olive 1 cap PO DAILY 12/10/21 12/10/21 History 50 mg-oreg 150 mg-caprylate capsule Allergies/Adverse Reactions Allergy/AdvReac Type Severity Reaction Status Date / Time shellfish derived Allergy Unknown Unknown Verified 12/11/21 10:45 Penicillins Allergy Unknown Verified 12/11/21 10:45 Current Medications: Generic Name Dose Route Start Last Admin Trade Name Freq PRN Reason Stop Dose Admin Sodium Chloride 1,000 mls @ 30 mls/hr 12/11/21 11:00 12/11/21 11:02 Sodium Chloride 0.9% IV 12/12/21 10:59 30 mls/hr .Q24H JACKIE Administration Pertinent History/Comorbid Conditions* Medical History (Updated 11/17/21 @ 14:47 by Neri Avery MD) Anemia Bilateral pulmonary embolism Brain TIA Carotid stenosis CVA (cerebral vascular accident) DVT (deep venous thrombosis) Elevated troponin Hypertension NSTEMI (non-ST elevated myocardial infarction) Renal infarct Surgical History (Updated 11/24/21 @ 13:15 by Shay Yang MD) H/O hemorrhoidectomy (10/15/21) History of colonoscopy History of open reduction and internal fixation (ORIF) procedure right shoulder Family History (Updated 10/25/21 @ 01:00 by Neena Lai MD) CAD (coronary artery disease) Sister Artery disease [place] at age 65 Social History Smoking and tobacco status: former smoker Quit status (tobacco): has quit using tobacco Year quit tobacco: 2021 Former quit date comment: 1/2 pack per day x 45 years Household members: spouse Housing: House Pertinent Exam Findings alert, oriented x 3, clear to auscultation bilaterally and regular rate & rhythm Recommendations Surgery/Procedure today Coding Level of Care Code Acute District Wire Chief for Jasson Pastrana
[2021-12-11 12:57] VITALS: BP 105/76; PULSE 94; RESP 16; TEMP 36.1; O2SAT 96
[2021-12-11 13:10] VITALS: BP 116/68; PULSE 77; RESP 18; O2SAT 94
--- NOTE | 2021-12-11 16:25 | ANE.PACU2 ---
Inpatient post-anesthesia follow up: Airway intact: Yes Vital signs: Temperature 97.0 F Pulse Rate 77 Respiratory Rate 18 Blood Pressure 116/68 Pulse Oximetry 94 Oxygen Delivery Me thod Room Air Oxygen Flow Rate Fraction of Inspir ed Oxygen Hydration adequate: Yes Nausea and vomiting: No Pain level: 1 Mental status: Baseline
== END 2021-12-11 13:34 | disposition home or self-care (01) ==
PROVIDERS: PCP Family Medicine; Visit Provider Internal Medicine Cardiovascular Disease
PROC: (CPT 93312; principal; 2021-12-11 12:00)
DX: I63.9 Cerebral infarction, unspecified (principal); Z86.718 Personal history of other venous thrombosis and embolism; I10 Essential (primary) hypertension; I25.2 Old myocardial infarction; K21.9 Gastro-esophageal reflux disease without esophagitis; E78.5 Hyperlipidemia, unspecified; Z87.891 Personal history of nicotine dependence
CPT/HCPCS: 93312; 93320; 93325; J2704; J7030

== ENCOUNTER → 2021-12-22 10:42 | Outpatient (BNVA) | payer MEDICARE, OTHER, SELFPAY | PROVIDERS: PCP Family Medicine; Visit Provider Surgery | DX: R93.5 Abnormal findings on diagnostic imaging of other abdominal regions, including retroperitoneum (principal); R93.3 Abnormal findings on diagnostic imaging of other parts of digestive tract | CPT/HCPCS: 99214 ==

== ENCOUNTER → 2021-12-31 10:34 | Outpatient (BNVA) | payer MEDICARE, OTHER, SELFPAY | PROVIDERS: PCP Family Medicine; Visit Provider Thoracic Surgery (Cardiothoracic Vascular Surgery) | DX: I63.239 Cerebral infarction due to unspecified occlusion or stenosis of unspecified carotid artery (principal); Z87.891 Personal history of nicotine dependence | CPT/HCPCS: 99213 ==

== ENCOUNTER 2022-02-09 08:55 | Outpatient (CLI) | payer MEDICARE, OTHER, SELFPAY ==
[2022-02-09] MEDS: barium sulfate 450 mL Oral Susp PO (10:24)
--- NOTE | 2022-02-09 10:30 | CT_ITS ---
WS: [id number] CT ABDOMEN AND PELVIS WITH CONTRAST HISTORY: Generalized abdominal pain and vomiting. RIGHT lower quadrant abnormality seen on a prior CT . TECHNIQUE: Imaging performed of the abdomen and pelvis with IV contrast. Single phase imaging of the abdomen. Coronal and sagittal reformats are submitted. All CT scans at [facility] use at [address] one of these dose optimization techniques: automated exposure control; mA and/or kV adjustment per patient size (includes targeted exams where dose is matched to clinical indication); or iterative re construction. IV CONTRAST: Omnipaque 350; 95 mL IV. Oral contrast: Yes. DLP: 986.40 mGy.cm COMPARISON: 12/16/2021 1 10/25/2021 Lower thorax: Lung bases are clear. Heart is normal size. Small hiatal hernia. Liver/biliary system: Normal size liver with hepatic steatosis. There is a small cyst LEFT lobe of th e liver measuring 11 mm. No bile duct dilatation. Normal portal vein. Gallbladder: Mildly contracted gallbladder. Pancreas: Normal size pancreas and pancreatic duct. No adjacent inflammation. Spleen: Normal size spleen with several granulomata. Adrenal glands: Normal. Right kidney: Normal size RIGHT kidney. Small calcifications at the renal pelvis. Some of these are v ascular. No obstruction or solid mass. Left kidney: Normal size kidney. Simple cyst upper pole measures 32 x 30 mm. There is a smaller corti raquel cyst lower pole. No obstruction. No solid mass. Aorta: Moderate atherosclerotic plaque throughout the aorta. Mild aneurysmal dilatation of the infrar enal aorta to 3.8 cm. Extensive calcified plaque throughout the aorta into the iliac arteries. Lymphadenopathy: None. Free fluid: None. GI tract: Normally distended stomach and small bowel. No obstruction. Small bowel fluid distention se en on the prior examination is no longer present. There is very minimal increased fluid within the di stal small bowel wall with no obstruction. The large RIGHT lower quadrant mass containing fecal-like material on the prior examination is probably distal small bowel fecalization. At the region of the t erminal ileum and cecum is mild narrowing of the lumen. The obstruction has resolved but there is sti ll some wall thickening and enhancement which has not significantly progressed. If this has not been further evaluated since the prior examination at least colonoscopy is recommended to better evaluate the cecum and possibly the terminal ileum. The appendix is normal. Abdominal wall: Fat containing umbilical hernia. Pelvis: No free fluid in the pelvis. Fat-containing mass in the LEFT adnexa with a central nodule is probably a dermoid measuring 4.9 x 4.4 cm. This has been previously described Additional very small nodule in the RIGHT adnexa containing fat. The maximum diameter of 1.2 cm this probably an additional small dermoid. Fibroid calcifications. Bones: RIGHT curvature lumbar spine. CT/CT abdomen pelvis w con* [id number] IMPRESSION: 1. Intraluminal fecal collection in the RIGHT lower quadrant seen on 12/16/2021 , was probably a markedly distended distal small bowel with fecalization. This has essentially resolved but there is still some increased fluid in the distal small bowel and mucosal enhancement near the terminal ileum and proximal sigmoi d. I suspect there is an area of stenosis and possible mass at this site. If co lonoscopy has not been performed this should be obtained. Patient is likely at risk for developing additional obstruction with fecalization. May be an inflamm atory stricture causing the obstruction1. 2. Bilateral dermoids. 3. Fibroid uterus. 4. Hepatic steatosis. 5. LEFT renal cyst. 6. Abdominal aortic aneurysm 3.8 cm.
[2022-02-09 10:33] LABS: Blood Urea Nitrogen 10 mg/dL (8-23)
[2022-02-09] MEDS: iohexol 350 mg/mL 100 mL Btl IV (10:39)
== END 2022-02-09 08:56 | disposition home or self-care (01) ==
LOC: RAD 08:56
PROVIDERS: PCP Family Medicine; Visit Provider Surgery
DX: R93.3 Abnormal findings on diagnostic imaging of other parts of digestive tract (principal); R10.84 Generalized abdominal pain; R11.10 Vomiting, unspecified; I71.4 Abdominal aortic aneurysm, without rupture; N28.1 Cyst of kidney, acquired; K76.0 Fatty (change of) liver, not elsewhere classified; D25.9 Leiomyoma of uterus, unspecified
CPT/HCPCS: 74177; 82565; 84520

== ENCOUNTER → 2022-02-16 11:02 | Outpatient (BNVA) | payer MEDICARE, OTHER, SELFPAY | PROVIDERS: PCP Family Medicine; Visit Provider Surgery | DX: Z09 Encounter for follow-up examination after completed treatment for conditions other than malignant neoplasm (principal); K56.609 Unspecified intestinal obstruction, unspecified as to partial versus complete obstruction; R19.7 Diarrhea, unspecified | CPT/HCPCS: 99214 ==

== ENCOUNTER 2022-02-19 14:53 | Outpatient (CLI) | payer MEDICARE, OTHER, SELFPAY | END 2022-02-19 14:54 | disposition home or self-care (01) | LOC: RAD 14:57 | PROVIDERS: PCP Family Medicine; Visit Provider Surgery | DX: R19.7 Diarrhea, unspecified (principal) | CPT/HCPCS: 83630; 87177; 87209; 87493; 87506 ==

== ENCOUNTER → 2022-02-25 15:21 | Outpatient (BNVA) | payer MEDICARE, OTHER, SELFPAY | PROVIDERS: PCP Family Medicine; Visit Provider Internal Medicine Cardiovascular Disease | DX: I26.99 Other pulmonary embolism without acute cor pulmonale (principal); I82.409 Acute embolism and thrombosis of unspecified deep veins of unspecified lower extremity; I10 Essential (primary) hypertension; E78.5 Hyperlipidemia, unspecified; Z86.73 Personal history of transient ischemic attack (TIA), and cerebral infarction without residual deficits; N28.0 Ischemia and infarction of kidney | CPT/HCPCS: 99214 ==

== ENCOUNTER → 2022-02-26 08:47 | Outpatient (BNVA) | payer MEDICARE, OTHER, SELFPAY | PROVIDERS: PCP Family Medicine; Visit Provider Surgery | DX: R19.7 Diarrhea, unspecified (principal); R10.31 Right lower quadrant pain | CPT/HCPCS: 99203; 99213 ==

== ENCOUNTER 2022-04-02 06:59 | Day surgery (SDC) | payer MEDICARE, OTHER, SELFPAY ==
[2022-03-31 14:16] VITALS: BMI 22.1
[2022-04-02 07:23] VITALS: BP 123/82; PULSE 98; RESP 18; TEMP 36.1; O2SAT 97
[2022-04-02] MEDS: sodium chloride 0.9% 1,000 ML 30 ML IV (07:39)
--- NOTE | 2022-04-02 08:03 | P.ANESASSM_ITS ---
Pre-Anesthetic Assessment Height/Weight: Height 1.73 m Weight 66.224 kg Temp Pulse Resp BP Pulse Ox O2 Del Method 97 F L 98 18 123/82 97 04/02/22 07:23 04/02/22 07:23 04/02/22 07:23 04/02/22 07:23 04/02/22 07:23 04/02/22 07:23 Preop Diagnosis: RLQ Abdominal Pain, Diarrhea Operation Date: 04/02/22 08:45 Proposed Procedures p Colonoscopy 94246,R10.31,R19.7(Not Applicable) - Saud Pisano DO Familial anesthetic complications: none Last intake: Intake Last Liquid Date 04/01/22 Last Liquid Time 20:00 Last Solid Date 04/01/22 Last Solid Time 04:00 Social Alcohol (glass of wine 1x a month) and No tobacco Airway Submandibular: within normal limits Mallampati: Class I Dentition: full Pulmonary bilateral pulmonary embolism 6 months prior. CV/HEM Hypertension and Myocardial Infarction NSTEMI, DVT, CVA, Pulmonary emboli 6 months prior origin of clotting defect uncertain per patient no issues since Apixaban. (03/30) None reported Hepatic None reported GI Gastroesophageal Reflux Disease Metabolic Hyperlipidemia [facility] None reported METS>4 Neuropsych Cerebrovascular Accident and Transient Ischemic Attack Anesthetic Plan ASA status: 3 Anesthesia: MAC Medications/Allergies Home Medications Medication Instructions Recorded Confirmed Last Taken Type aspirin 81 mg tablet,delayed 81 mg PO DAILY 30 days #30 tabs 10/27/21 03/31/22 04/01/22 Rx release ascorbic acid (vitamin C) 500 mg 500 mg PO DAILY 12/10/21 03/31/22 04/01/22 History tablet (Vitamin C) cholecalciferol (vitamin D3) 25 25 mcg PO DAILY 12/10/21 03/31/22 04/01/22 History mcg (1,000 unit) capsule (Vitamin D3) cyanocobalamin (vitamin B-12) 5,000 mcg PO DAILY 12/10/21 03/31/22 04/01/22 History 2,000 mcg tablet,extended release (Vitamin B-12 ER) ferrous sulfate 325 mg (65 mg 325 mg PO DAILY 12/10/21 03/31/22 04/01/22 History iron) capsule,extended release glucosamine sulf dipot 1 cap PO DAILY 12/10/21 03/31/22 04/01/22 History chlr,msm,chond 550 mg-C 30 mg-alex 1 mg capsule (Glucosamine Chondroitin) cryagxtg-slx-vaoen acid 0.4 1 tab PO DAILY 12/10/21 03/31/22 04/01/22 History mg-lycopene 300 mcg-lutein 250 mcg tablet tumeric 100 mg-ag 150 mg-olive 1 cap PO DAILY 12/10/21 03/31/22 04/01/22 History 50 mg-oreg 150 mg-caprylate capsule apixaban 5 mg tablet (Eliquis) 5 mg PO BID #180 tabs 01/26/22 03/31/22 03/30/22 Rx atorvastatin 40 mg tablet 40 mg PO BEDTIME #90 tabs 02/25/22 03/31/22 04/01/22 Rx pantoprazole 40 mg tablet,delayed 40 mg PO DAILY #90 tabs 02/25/22 03/31/22 04/01/22 Rx release (Protonix) Allergies Allergy/AdvReac Type Severity Reaction Status Date / Time shellfish derived Allergy Unknown Unknown Verified 02/26/22 08:50 Penicillins Allergy Unknown Verified 02/26/22 08:50 Current Medications Generic Name Dose Route Start Last Admin Trade Name Freq PRN Reason Stop Dose Admin Sodium Chloride 1,000 mls @ 30 mls/hr 04/02/22 07:15 04/02/22 07:39 Sodium Chloride 0.9% IV 04/03/22 07:14 30 mls/hr .Q24H JACKIE Administration PFSH Anesthesia Medical History (Updated 02/28/22 @ 21:06 by Lovely Oliveira MD) Anemia Bilateral pulmonary embolism Brain TIA Carotid stenosis CVA (cerebral vascular accident) DVT (deep venous thrombosis) Elevated troponin Hyperlipidemia Hypertension NSTEMI (non-ST elevated myocardial infarction) Renal infarct Surgical History H/O hemorrhoidectomy (10/15/21) History of colonoscopy History of open reduction and internal fixation (ORIF) procedure right shoulder Family History Sister CAD (coronary artery disease) Artery disease [place] at age 65 Social History Smoking and tobacco status: never smoked Quit status (tobacco): has quit using tobacco Year quit tobacco: 2021 Former quit date comment: 1/2 pack per day x 45 years Household members: spouse Housing: House Data Anesthesia Cardiac Studies: Echocardiogram 10/25/21 Transesophageal Echocardiogram 12/11/21 Sestamibi Stress Test (Cardiology) 10/25
--- NOTE | 2022-04-02 08:25 | P.HP_ITS ---
Providers/Chief Complaint Primary Care Provider: Alexus Flowers DO Chief Complaint: Abdominal pain History of Present Illness Miriam Courtney is a 72 year old female here for colonoscopy Medications/Allergies Home Medications Medication Instructions Recorded Confirmed Last Taken Type aspirin 81 mg tablet,delayed 81 mg PO DAILY 30 days #30 tabs 10/27/21 03/31/22 04/01/22 Rx release ascorbic acid (vitamin C) 500 mg 500 mg PO DAILY 12/10/21 03/31/22 04/01/22 History tablet (Vitamin C) cholecalciferol (vitamin D3) 25 25 mcg PO DAILY 12/10/21 03/31/22 04/01/22 History mcg (1,000 unit) capsule (Vitamin D3) cyanocobalamin (vitamin B-12) 5,000 mcg PO DAILY 12/10/21 03/31/22 04/01/22 History 2,000 mcg tablet,extended release (Vitamin B-12 ER) ferrous sulfate 325 mg (65 mg 325 mg PO DAILY 12/10/21 03/31/22 04/01/22 History iron) capsule,extended release glucosamine sulf dipot 1 cap PO DAILY 12/10/21 03/31/22 04/01/22 History chlr,msm,chond 550 mg-C 30 mg-alex 1 mg capsule (Glucosamine Chondroitin) mzjjqeyf-ayt-ytkve acid 0.4 1 tab PO DAILY 12/10/21 03/31/22 04/01/22 History mg-lycopene 300 mcg-lutein 250 mcg tablet tumeric 100 mg-ag 150 mg-olive 1 cap PO DAILY 12/10/21 03/31/22 04/01/22 History 50 mg-oreg 150 mg-caprylate capsule apixaban 5 mg tablet (Eliquis) 5 mg PO BID #180 tabs 01/26/22 03/31/22 03/30/22 Rx atorvastatin 40 mg tablet 40 mg PO BEDTIME #90 tabs 02/25/22 03/31/22 04/01/22 Rx pantoprazole 40 mg tablet,delayed 40 mg PO DAILY #90 tabs 02/25/22 03/31/22 04/01/22 Rx release (Protonix) Allergies Allergy/AdvReac Type Severity Reaction Status Date / Time shellfish derived Allergy Unknown Unknown Verified 02/26/22 08:50 Penicillins Allergy Unknown Verified 02/26/22 08:50 PFSH Acute PFSH: Medical History (Updated 02/28/22 @ 21:06 by Lovely Oliveira MD) Anemia Bilateral pulmonary embolism Brain TIA Carotid stenosis CVA (cerebral vascular accident) DVT (deep venous thrombosis) Elevated troponin Hyperlipidemia Hypertension NSTEMI (non-ST elevated myocardial infarction) Renal infarct Surgical History H/O hemorrhoidectomy (10/15/21) History of colonoscopy History of open reduction and internal fixation (ORIF) procedure right shoulder Family History Sister CAD (coronary artery disease) Artery disease [place] at age 65 Social History Smoking and tobacco status: never smoked Quit status (tobacco): has quit using tobacco Year quit tobacco: 2021 Former quit date comment: 1/2 pack per day x 45 years Household members: spouse Housing: House Vitals/I&O/Wt Last Vital Signs Temp 97 F L 04/02/22 07:23 Pulse 98 04/02/22 07:23 Resp 18 04/02/22 07:23 BP 123/82 04/02/22 07:23 Pulse Ox 97 04/02/22 07:23 O2 Del Method 04/02/22 07:23 Weight last 48 hrs Weight 146 lb A&P Assessment and plan (1) Diarrhea: Plan Colonoscopy Attestations Medical Necessity Statement*: Home Coding Level of Care Code Acute Review Appraiser for Chg Fwd Diagnoses Diarrhea R19.7
[2022-04-02 08:57] VITALS: BP 98/43; PULSE 95; RESP 12; TEMP 36.2; O2SAT 98
[2022-04-02 09:10] VITALS: BP 108/70; PULSE 85; RESP 18; O2SAT 100
--- NOTE | 2022-04-02 09:11 | XR_ITS ---
WS: [id number] Exam: XR chest 1V portable [id number] Date/Time of Exam: 04/02/2022 9:15 AM Reason For Exam: post procedure coughing/congestion Comparison 10/24/2021. The lungs are hyperinflated and clear. Chronic interstitial changes in the lower lung zones. Normal c ardiomediastinal silhouette. Regional bony elements are intact. Healed fracture of the proximal right humerus with the partially visualized hardware. XR/XR chest 1V portable [id number] IMPRESSION: 1. Pulmonary hyperinflation which may indicate COPD. No acute process noted.
[2022-04-02 09:21] VITALS: BP 103/70; PULSE 80; RESP 18; O2SAT 97
[2022-04-02 09:50] LABS: Basophils # 0.1 10^3/uL (0.0-0.1); Basophils % 0.6 %; Eosinophils # 0.2 10^3/uL (0.0-0.8); Eosinophils % 1.7 %; Hematocrit 34.9 % (37.0-47.0); Hemoglobin 10.8 g/dL (11.5-15.3); Lymphocytes # 1.2 10^3/uL (0.8-4.8); Lymphocytes % 11.1 %; Mean Corpuscular HGB Conc 30.9 g/dL (30.0-36.0); Mean Corpuscular Hemoglobin 27.7 pg (28.0-34.0); Mean Corpuscular Volume 89.5 fl (81-99); Mean Platelet Volume 8.9 fL (7.4-10.4); Monocytes # 0.8 10^3/uL (0.2-0.9); Monocytes % 6.8 %; Neutrophils # 8.73 10^3/uL (1.8-7.7); Neutrophils % 79.4 %; Nucleated Red Blood Cells % 0 %; Platelet Count 433 10^3/cmm (130-400); Red Cell Distribution Width 15.7 % (12.1-15.1)
[2022-04-02 10:13] LABS: Alanine Aminotransferase 24 U/L (0-33); Albumin Level 3.6 g/dL (3.5-5.2); Alkaline Phosphatase 113 U/L (35-105); Anion Gap 14.9 (5-19); Aspartate Amino Transferase 26 U/L (0-32); Blood Urea Nitrogen 11 mg/dL (8-23); Calcium 9.3 mg/dL (8.5-10.5); Carbon Dioxide 27 mmol/L (22-29); Chloride 100 mmol/L (98-107); Globulin 3.4 g/dL (1.3-4.6); Glucose 80 mg/dL (65-115); Osmolality Calculated 284 mOsm/kg (285-295); Potassium 3.9 mmol/L (3.5-5.1); Sodium 138 mmol/L (136-145); Total Bilirubin 0.6 mg/dL (0.15-1.2)
[2022-04-02 10:40] LABS: Carcinoembryonic Antigen 6.2 ng/mL (0.0-4.7)
--- NOTE | 2022-04-02 14:07 | ANE.PACU2 ---
Inpatient post-anesthesia follow up: Airway intact: Yes Vital signs: Temperature 97.1 F Pulse Rate 80 Respiratory Rate 18 Blood Pressure 103/70 Pulse Oximetry 97 Oxygen Delivery Me thod Room Air Oxygen Flow Rate Fraction of Inspir ed Oxygen Hydration adequate: Yes Nausea and vomiting: No Pain level: 1 Mental status: Baseline
== END 2022-04-02 09:40 | disposition home or self-care (01) ==
PROVIDERS: PCP Family Medicine; Visit Provider Surgery
PROC: 0DJD8ZZ Inspection of Lower Intestinal Tract, Via Natural or Artificial Opening Endoscopic (ICD-10-PCS; CPT 45378; principal; 2022-04-02 08:45)
DX: R10.9 Unspecified abdominal pain (principal); C18.0 Malignant neoplasm of cecum; Z79.82 Long term (current) use of aspirin; Z86.73 Personal history of transient ischemic attack (TIA), and cerebral infarction without residual deficits; Z86.718 Personal history of other venous thrombosis and embolism; E78.5 Hyperlipidemia, unspecified; I10 Essential (primary) hypertension; I25.2 Old myocardial infarction; Z86.711 Personal history of pulmonary embolism; K21.9 Gastro-esophageal reflux disease without esophagitis
CPT/HCPCS: 36415; 45380; 71045; 80053; 82378; 85025; 88305; J2370; J2704; J7030

== ENCOUNTER 2022-04-08 13:57 | Inpatient (IN) | payer MEDICARE, OTHER, SELFPAY ==
[2022-04-06 08:04] VITALS: BMI 22.0
--- NOTE | 2022-04-06 10:55 | ANES.PREANE2 ---
Pre-Anesthetic Assessment Height/Weight: Height 1.73 m Weight 65.771 kg Preop Diagnosis: RLQ Abdominal Pain, Diarrhea Operation Date: 04/08/22 11:55 Proposed Procedures p Laparoscopic Right Hemicolectomy 89711/ K63.89 MASS OF COLON(Right) - Saud Pisano DO Familial anesthetic complications: none Was Beta Betito taken within 24 hours: N/A Was Clonidine taken within 24 hours: N/A Social No alcohol and No tobacco Exam alert, oriented x 3, clear to auscultation bilaterally and regular rate & rhythm Airway Submandibular: within normal limits Cervical ROM: within normal limits Mallampati: Class II Dentition: chipped CV/HEM Deep Vein Thrombosis, Hypertension and Peripheral Vascular Disease GI Gastroesophageal Reflux Disease colon mass Metabolic Hyperlipidemia Neuropsych Transient Ischemic Attack Anesthetic Plan ASA status: 3 Anesthesia: General Medications/Allergies Home Medications Medication Instructions Recorded Confirmed Last Taken Type aspirin 81 mg tablet,delayed 81 mg PO DAILY 30 days #30 tabs 10/27/21 04/06/22 04/05/22 Rx release ascorbic acid (vitamin C) 500 mg 500 mg PO DAILY 12/10/21 04/06/22 04/01/22 History tablet (Vitamin C) cholecalciferol (vitamin D3) 25 25 mcg PO DAILY 12/10/21 04/06/22 04/01/22 History mcg (1,000 unit) capsule (Vitamin D3) cyanocobalamin (vitamin B-12) 5,000 mcg PO DAILY 12/10/21 04/06/22 04/01/22 History 2,000 mcg tablet,extended release (Vitamin B-12 ER) ferrous sulfate 325 mg (65 mg 325 mg PO DAILY 12/10/21 04/06/22 04/01/22 History iron) capsule,extended release glucosamine sulf dipot 1 cap PO DAILY 12/10/21 04/06/22 04/01/22 History chlr,msm,chond 550 mg-C 30 mg-alex 1 mg capsule (Glucosamine Chondroitin) vwuqrezc-tfw-btoop acid 0.4 1 tab PO DAILY 12/10/21 04/06/22 04/01/22 History mg-lycopene 300 mcg-lutein 250 mcg tablet tumeric 100 mg-ag 150 mg-olive 1 cap PO DAILY 12/10/21 04/06/22 04/01/22 History 50 mg-oreg 150 mg-caprylate capsule apixaban 5 mg tablet (Eliquis) 5 mg PO BID #180 tabs 01/26/22 04/06/22 04/05/22 Rx atorvastatin 40 mg tablet 40 mg PO BEDTIME #90 tabs 02/25/22 04/06/22 04/01/22 Rx pantoprazole 40 mg tablet,delayed 40 mg PO DAILY #90 tabs 02/25/22 04/06/22 04/01/22 Rx release (Protonix) peg 3350-electrolytes 236 240 ml PO Q10M #4,000 mL 04/02/22 04/06/22 Unknown Rx gram-22.74 gram-6.74 gram-5.86 gram solution (Golytely) Allergies Allergy/AdvReac Type Severity Reaction Status Date / Time shellfish derived Allergy Unknown Unknown Verified 04/06/22 08:00 Penicillins Allergy Unknown Verified 04/06/22 08:00 [facility] Anesthesia Medical History Anemia Bilateral pulmonary embolism Brain TIA Carotid stenosis CVA (cerebral vascular accident) DVT (deep venous thrombosis) Elevated troponin Hyperlipidemia Hypertension NSTEMI (non-ST elevated myocardial infarction) Renal infarct Surgical History H/O hemorrhoidectomy (10/15/21) History of colonoscopy History of open reduction and internal fixation (ORIF) procedure right shoulder Family History Sister CAD (coronary artery disease) Artery disease [place] at age 65 Social History Smoking and tobacco status: never smoked Quit status (tobacco): has quit using tobacco Year quit tobacco: 2021 Former quit date comment: 1/2 pack per day x 45 years Household members: spouse Housing: House Data Anesthesia Cardiac Studies: Echocardiogram 10/25/21 Transesophageal Echocardiogram 12/11/21 Sestamibi Stress Test (Cardiology) 10/25/21
[2022-04-08] VITALS (20 sets, daily range): BP systolic 124–140; BP diastolic 66–86; PULSE 81–97; RESP 16–19; TEMP 36.5–37.2; O2SAT 88–99; BMI 22.0
[2022-04-08] MEDS: sodium chloride 0.9% 1,000 ML 30 ML IV (09:30)
--- NOTE | 2022-04-08 09:33 | ANES.PAUD2 ---
Pre-Anesthetic Update Pre-Anesthetic Assessment: Date of Surgery/Procedure: 04/08/22 Preop Diagnosis: Colon cancer Proposed Procedure: Operation Date: 04/08/22 10:50 Proposed Procedures p Laparoscopic Right Hemicolectomy 80606/ K63.89 MASS OF COLON(Right) - Saud Pisano DO Last Intake: Intake Last Liquid Date 04/08/22 Last Liquid Time 06:00 Last Solid Date 04/07/22 Last Solid Time 05:00 Vitals: Temperature 98.1 F 04/08/22 09:17 Temperature Source Temporal Artery S can 04/08/22 09:17 Pulse Rate 93 04/08/22 09:17 Pulse Rhythm 04/08/22 09:17 Pulse Strength 3+ Normal 04/08/22 09:17 Respiratory Rate 18 04/08/22 09:17 Blood Pressure 132/70 04/08/22 09:17 Blood Pressure Rachael n 90 04/08/22 09:17 Pulse Oximetry 96 04/08/22 09:17 Oxygen Delivery Me thod 04/08/22 09:17 Exam: Pre-Anes Outpt Exam: alert, oriented x 3, clear to auscultation bilaterally and regular rate & rhythm Cardiac Studies: Echocardiogram 10/25/21 Transesophageal Echocardiogram 12/11/21 Sestamibi Stress Test (Cardiology) 10/25/21
--- NOTE | 2022-04-08 10:50 | W.PM.OPSUD ---
Surgery/Procedure H&P Update DATE OF PROCEDURE: April 08, 2022 DATE H&P PERFORMED: 04/02/22 PREOP DIAGNOSIS: Colon cancer PLANNED PROCEDURE: Operation Date: 04/08/22 10:50 Proposed Procedures p Laparoscopic Right Hemicolectomy 73655/ K63.89 MASS OF COLON(Right) - Saud Pisano DO
[2022-04-08] MEDS: clindamycin 600 MG/50 ML PREMIX 50 MG IV (12:11)
--- NOTE | 2022-04-08 13:51 | P.OP_ITS ---
Operative Report Date of procedure: April 08, 2022 Pre-op diagnosis: Preop Diagnosis Colon cancer Post-op diagnosis: same Procedure done: Laparoscopic right hemicolectomy Specimens removed/disposition: Right colon and terminal ileum Surgeon: Dr. Saud Pisano DO Anesthesia: General Estimated blood loss (mL): 5 Complications: None apparent Brief History: Right-sided colon cancer on colonoscopy. Right hemicolectomy was indicated. The risks and benefits of procedure, including but not limited to, bleeding, infection, anastomotic leak, damage to surrounding structures, need to convert to an open procedure, scar, numbness, pain, or explained to the patient. She is understanding of the risks and wished to proceed. Procedure: Patient was wheeled in the room and placed on the OR table in the supine position. The abdomen was inspected prepped and draped in usual sterile fashion. A timeout was performed. All present were in agreement. General anesthesia was achieved by the department of anesthesia. 2% lidocaine with epinephrine was used to anesthetize the left upper quadrant. A stab incision was made and a Veress needle was placed into the abdomen. Intra-abdominal insufflation was brought to 15 mmHg. A 12 mm trocar was placed in the umbilicus. Two 5 mm trochars were placed in the right lower quadrant. The right white line of [place] was taken down with electrocautery. [place]'s bands were transected with electrocautery. The umbilical incision was then extended cephalad and the specimen was externalized. The site of anastomosis was chosen on the distal right colon. A 75 mm blue load ESTELA stapler was used to resect and anastomosis the terminal ileum to the transverse colon. Enseal was used to take down the mesentery. The specimen was passed off. The midline incision was then closed with #1 PDS x2. Intra-abdominal insufflation was then brought again to 15 mmHg. The abdomen was inspected. There was practically no blood loss. Anastomosis was intact. Ports were removed. Skin was closed with leanna. Sterile bandages were applied. Patient tolerated the procedure well.
[2022-04-08] MEDS: fentaNYL 50 mcg/mL INJ 2mL IVP (14:18)
--- NOTE | 2022-04-08 14:28 | SUR.PHASEI ---
1405 PT TO PACU 5 PT SLEEPY BUT AWAKES TO VOICE ABDOMEN SOFT FLAT WITH 3 SITES WITH MEDIPORE DRESSING. D/I PT WITH GOOD RESP EFFORT NG TO LT NARE TAPEDS SECURELY AT 4TH BEA FROM END. IV PIID TO LT WRIST #18, #20 TO RT HAND WITH NS 600ML UP AT KVO RATE PER GRAVITY, BILAT SCDS ON AND WORKING LICEA CATHETER TO DEPENDANT DRAINAGE, WITH CLEAR YELLOW URINE TO TUBING AND BAG STATLOCK TO RT INNER THIGH, WARM BLANKETS TO PT X 2, MONITOR SR WITH OCC PVC'S UNIFOCAL
--- NOTE | 2022-04-08 14:42 | SUR.PHASEI ---
FAMILY IN WAITING ROOM UPDATED PT STABLE, FAMILY TO WALK UP WITH PT TO FLOOR ROOM 264
--- NOTE | 2022-04-08 15:08 | SUR.PHASEI ---
1450 PT AWAKES TO VOICE, VERBALIZES APPROP, NO FACIAL DROOPING NOTED PT MOVES FEET EQUALLY AND STRONGLY, SPRAYING MACHINE OPERATOR EQUAL BUT WEAK, MONITOR NOW MOSTLY SR RARE PVC UNIFOCAL NOTED PT TO FLOOR PER CART AND DAUGHTER WALKED UP WITH PT AND RN 1505 PT IN ROOM MOVED TO BED WITH ASSIST OF 3 PT OPENS EYES AND NODS HEAD APPROP YES AND NO , PT HANDOFF AT BEDSIDE,WITH ARSH VILLEDA. ABDOMENAL DRESSING D/I UNCHANGED.
--- NOTE | 2022-04-08 15:34 | ANE.PACU2 ---
Inpatient post-anesthesia follow up: Airway intact: Yes Vital signs: Temperature 97.8 F Pulse Rate 95 Respiratory Rate 18 Blood Pressure 135/74 Pulse Oximetry 97 Oxygen Delivery Me thod Nasal Cannula Oxygen Flow Rate 3 Fraction of Inspir ed Oxygen Hydration adequate: Yes Nausea and vomiting: No Pain level: 3 Mental status: Baseline
[2022-04-08] MEDS: pantoprazole 40 mg SDV IVP (16:12)
[2022-04-08] MEDS: D5-NS 0.45% + KCL 20 mEq 20 MEQ/1,000 ML BAG 125 MEQ IV ×2 (16:12→22:27)
[2022-04-08] MEDS: heparin 5,000 unit/mL INJ 1 mL 5000 UNIT SUBCUT ×2 (16:12→22:27)
[2022-04-08] MEDS: HYDROcodone-acetaminophen 5-325 mg Tablet 1 TAB PO ×2 (18:22→22:27)
[2022-04-08] MEDS: clindamycin 600 MG/50 ML PREMIX 100 MG IV (20:23)
[2022-04-08] MEDS: morphine 4 mg/mL SDV 1 mL IVP (21:26)
[2022-04-09 02:11] LABS: Basophils % 0.1 %; Hemoglobin 9.3 g/dL (11.5-15.3); Lymphocytes # 0.5 10^3/uL (0.8-4.8); Lymphocytes % 4.4 %; Mean Corpuscular Hemoglobin 26.6 pg (28.0-34.0); Mean Corpuscular Volume 88.6 fl (81-99); Mean Platelet Volume 8.9 fL (7.4-10.4); Monocytes # 0.4 10^3/uL (0.2-0.9); Monocytes % 3.4 %; Neutrophils # 10.41 10^3/uL (1.8-7.7); Neutrophils % 91.7 %; Nucleated Red Blood Cells % 0 %; Platelet Count 355 10^3/cmm (130-400); Red Cell Distribution Width 15.2 % (12.1-15.1); White Blood Count 11.4 10^3/uL (4.0-10.0)
[2022-04-09 02:33] LABS: Anion Gap 15.2 (5-19); Blood Urea Nitrogen 9 mg/dL (8-23); Calcium 8.1 mg/dL (8.5-10.5); Carbon Dioxide 24 mmol/L (22-29); Chloride 103 mmol/L (98-107); Glucose 173 mg/dL (65-115); Osmolality Calculated 289 mOsm/kg (285-295); Potassium 4.2 mmol/L (3.5-5.1); Sodium 138 mmol/L (136-145)
[2022-04-09] MEDS: clindamycin 600 MG/50 ML PREMIX 100 MG IV ×2 (03:08→16:31)
[2022-04-09 04:00] VITALS: BP 103/61; PULSE 71; RESP 17; O2SAT 97
[2022-04-09] MEDS: heparin 5,000 unit/mL INJ 1 mL 5000 UNIT SUBCUT ×3 (09:42→23:39)
[2022-04-09] MEDS: D5-NS 0.45% + KCL 20 mEq 20 MEQ/1,000 ML BAG 125 MEQ IV ×2 (09:45→18:43)
--- NOTE | 2022-04-09 11:42 | PM.PN ---
Subjective Subjective: Patient has no new complaints. Denies any nausea or vomiting. Denies any bowel movements or flatus. Pain controlled. Vitals/I&O/Wt Last Vital Signs Temp 98.0 F 04/08/22 20:05 Pulse 71 04/09/22 04:00 Resp 17 04/09/22 04:00 BP 103/61 04/09/22 04:00 Pulse Ox 97 04/09/22 04:00 O2 Del Method 04/09/22 04:00 O2 Flow Rate 3 04/09/22 09:56 04/08/22 04/09/22 04/09/22 22:59 06:59 14:59 Intake Total 831.25 / 881.25 1050 / 1931.25 Output Total 900 / 960 140 / 140 Balance 831.25 / 821.25 150 / 971.25 -140 / -140 Weight last 48 hrs Weight 145 lb Physical Exam Narrative: General: No acute distress, awake alert and oriented x3 Abdomen: Soft, nondistended, appropriately tender Incisions intact without erythema or exudate Urinary Catheter Management: Bravo: Cath Placed During This Visit: yes, but has since been removed by the nurse Reason for Continuing Indwelling Catheter: Decision to DC Catheter Urinary Catheter Date of Insertion: 04/08/22 Urinary Catheter Time of Insertion: 12:20 Date Urinary Catheter Removed: 04/09/22 Time Urinary Catheter Discontinued: 10:00 Data : 04/09/22 01:53 04/09/22 01:53 A&P Assessment and plan (1) Status post right hemicolectomy: (2) Colon cancer: Plan Pain control IV fluids N.p.o./NG tube to LIWS DC NG tube when passing flatus Daily labs DC Bravo Attestations Medical Necessity Statement*: Patient requires at least 2 more nights in the hospital until return of bowel function Coding Level of Care Code Acute Child Development Teacher for Chg Fwd Diagnoses Status post right hemicolectomy Z90.49 Colon cancer C18.9
[2022-04-09 12:08] VITALS: RESP 16
[2022-04-09] MEDS: morphine 4 mg/mL SDV 1 mL IVP (12:08)
[2022-04-09 12:26] VITALS: BP 107/68; PULSE 80; RESP 13; TEMP 36.8; O2SAT 93
--- NOTE | 2022-04-09 13:00 | PC.CHAP ---
Pastoral Care Encounter/Spiritual Assessment Type of Contact [] Declined grocery caddy visit [] Patient/Family/Request visit [] Outpatient visit [] Follow-up visit [] Physician referral [] Code/Alert [x] Routine visit [] Staff referral [] Actively dying [] Patient sleeping [] Family support [] [] Out of room [x] Palliative care [] [] Receiving care in room [] Pre-surgical visit [] Trauma [] Long length of stay [] ICU visit [] Other: Relational/Emotional Strength [] Patient feels connected with others/family/visitors/staff [] Distress [] Loneliness/isolation [] Abandonment Spirituality of Patient [] Person of [place] [] Attends Mormonism of their [place] [] Believes in Prayer [] Reads Bible or Yazidism materials [] There are Spiritual issues to be addressed Livestock Producer Interventions [x] Prayer [] Active listening [] Non-anxious presence [] Spiritual/emotional support [] Crisis/trauma care [] Spiritual counseling [] Bereavement support [] Provided bereavement packet [] Provided Bible/devotional materials [] Provided toy/stuffed animal, coloring book to patient or family member [] Provided Communion [] Anointing/[place] [] Salvation [x] Completed spiritual assessment [] Other: Impact on Illness or Injury [] Angry [] Fearful [] Anxious [] Often cries [] Exhaustion [] Unable to work [] Unable to attend synagogue [] Unable to walk/stand [] Unable to read [] Unable to drive [] Unable to eat/drink [] Unable to sleep [] Unable to be with family [] Patient intubated [] Other: Summary Time spent with patient
[2022-04-09 16:00] VITALS: BP 135/74; PULSE 92; RESP 16; TEMP 36.8
[2022-04-09] MEDS: pantoprazole 40 mg SDV IVP (16:31)
[2022-04-09 20:23] VITALS: BP 111/62; PULSE 91; RESP 16; TEMP 37.1; O2SAT 97
[2022-04-09] MEDS: HYDROcodone-acetaminophen 5-325 mg Tablet 1 TAB PO (23:42)
[2022-04-10 00:09] VITALS: BP 104/60; PULSE 94; RESP 16; TEMP 36.7; O2SAT 94
[2022-04-10] MEDS: D5-NS 0.45% + KCL 20 mEq 20 MEQ/1,000 ML BAG 125 MEQ IV ×3 (01:48→16:48)
[2022-04-10 04:21] LABS: Basophils % 0.3 %; Eosinophils # 0.1 10^3/uL (0.0-0.8); Eosinophils % 0.9 %; Hematocrit 29.4 % (37.0-47.0); Hemoglobin 8.9 g/dL (11.5-15.3); Lymphocytes # 2.1 10^3/uL (0.8-4.8); Lymphocytes % 20.7 %; Mean Corpuscular HGB Conc 30.3 g/dL (30.0-36.0); Mean Corpuscular Hemoglobin 27.3 pg (28.0-34.0); Mean Corpuscular Volume 90.2 fl (81-99); Monocytes # 0.8 10^3/uL (0.2-0.9); Monocytes % 8.2 %; Neutrophils # 6.91 10^3/uL (1.8-7.7); Neutrophils % 69.6 %; Nucleated Red Blood Cells % 0 %; Platelet Count 357 10^3/cmm (130-400); Red Blood Count 3.26 10^6/uL (4.1-5.3); Red Cell Distribution Width 15.2 % (12.1-15.1); White Blood Count 9.9 10^3/uL (4.0-10.0)
[2022-04-10 04:32] VITALS: BP 108/63; PULSE 86; RESP 16; TEMP 36.8; O2SAT 97
[2022-04-10 04:46] LABS: Anion Gap 12.1 (5-19); Blood Urea Nitrogen 8 mg/dL (8-23); Carbon Dioxide 24 mmol/L (22-29); Chloride 106 mmol/L (98-107); Glucose 113 mg/dL (65-115); Osmolality Calculated 285 mOsm/kg (285-295); Potassium 4.1 mmol/L (3.5-5.1); Sodium 138 mmol/L (136-145)
[2022-04-10 08:00] VITALS: BP 115/66; PULSE 83; RESP 18; TEMP 36.8; O2SAT 91
[2022-04-10] MEDS: enoxaparin 80 mg/0.8 mL Syringe 70 MG SUBCUT ×2 (09:18→19:58)
--- NOTE | 2022-04-10 09:26 | P.PN_ITS ---
Subjective Subjective: She is doing better overall. No acute events overnight. Pain is better controlled. She passed gas 1 or 2 times. Vitals/I&O/Wt Last Vital Signs Temp 98.2 F 04/10/22 08:00 Pulse 83 04/10/22 08:00 Resp 18 04/10/22 08:00 BP 115/66 04/10/22 08:00 Pulse Ox 91 04/10/22 08:00 O2 Del Method 04/10/22 08:00 O2 Flow Rate 2 04/10/22 04:32 04/09/22 04/10/22 04/10/22 22:59 06:59 14:59 Intake Total 1080 / 1925.5 885.417 / 2810.917 939.583 / 939.583 Balance 1080 / 1785.5 885.417 / 2670.917 939.583 / 939.583 Weight last 48 hrs Weight 145 lb Physical Exam Narrative: No acute distress. Comfortable. No jugular venous distention. NG tube is in the nose, seems to be shifted out, minimal output Abdomen is softly distended especially in the epigastrium, mild tenderness to palpation around incisions, all wounds are clean dry intact Urinary Catheter Management: Bravo: Cath Placed During This Visit: yes, but has since been removed by the nurse Reason for Continuing Indwelling Catheter: Decision to DC Catheter Urinary Catheter Date of Insertion: 04/08/22 Urinary Catheter Time of Insertion: 12:20 Date Urinary Catheter Removed: 04/09/22 Time Urinary Catheter Discontinued: 12:00 Data : 04/10/22 03:53 04/10/22 03:53 A&P Assessment and plan (1) Status post right hemicolectomy: (2) Colon cancer: Plan Start therapeutic Lovenox, daily labs, abdominal x-ray to evaluate distention and position of the NG tube. If x-ray is normal, will remove NG tube. If not normal, will keep it 1 more day. Continue ambulation. Bowel regimen with senna and docusate Attestations Medical Necessity Statement*: Colon cancer Coding Level of Care Code Acute Loss Prevention Guard for Chg Fwd Diagnoses Status post right hemicolectomy Z90.49 Colon cancer C18.9
--- NOTE | 2022-04-10 10:56 | XRR_ITS ---
PROCEDURE INFORMATION: Exam: XR Abdomen Exam date and time: 04/10/2022 10:55 AM Age: 72 years old Clinical indication: Obstruction. NG tube. TECHNIQUE: Imaging protocol: Radiologic exam of the abdomen. Views: Frontal supine view of the abdomen. 1 View. COMPARISON: CT abdomen pelvis w con* [id number] 02/09/2022 10:34 AM FINDINGS: Tubes, catheters and devices: Nasogastric tube with tip in the distal esophagus. Recommend advancement by approximately 13 cm. Gastrointestinal tract: There are dilated loops of small bowel, and there is gas throughout much of the colon. This could reflect ileus or distal colonic obstruction. Consider CT further assess. Intraperitoneal space: No gross free air. A ventral abdominal staple line is noted. Bones/joints: No gross acute fracture. XR/XR abdomen 1V* [id number] IMPRESSION: 1. Nasogastric tube with tip in the distal esophagus. The nasogastric tube has already been advanced on the subsequent image obtained 04/10/2022 at 1:34 p.m. 2. There are dilated loops of small bowel, and there is gas throughout much of the colon. This could reflect ileus or distal colonic obstruction. Consider CT further assess.
[2022-04-10] MEDS: HYDROcodone-acetaminophen 5-325 mg Tablet 1 TAB PO ×2 (11:02→19:58)
[2022-04-10 12:00] VITALS: BP 134/82; PULSE 92; RESP 18; TEMP 36.6; O2SAT 96
--- NOTE | 2022-04-10 12:55 | P.PN_ITS ---
Subjective Subjective: XR was reviewed. X-ray was reviewed. NG tube tip located in the esophagus. Ileus on the x-ray. Will advance NG tube 15 cm, confirmed placement with an x-ray, reassess for removal tomorrow a.m. Discussed with the nurse and orders placed. Vitals/I&O/Wt Last Vital Signs Temp 97.9 F 04/10/22 12:00 Pulse 92 04/10/22 12:00 Resp 18 04/10/22 12:00 BP 134/82 04/10/22 12:00 Pulse Ox 96 04/10/22 12:00 O2 Del Method 04/10/22 12:00 O2 Flow Rate 2 04/10/22 04:32 04/09/22 04/10/22 04/10/22 22:59 06:59 14:59 Intake Total 1080 / 1925.5 885.417 / 2810.917 939.583 / 939.583 Balance 1080 / 1785.5 885.417 / 2670.917 939.583 / 939.583 Weight last 48 hrs Weight 145 lb Physical Exam Urinary Catheter Management: Bravo: Cath Placed During This Visit: yes, but has since been removed by the nurse Reason for Continuing Indwelling Catheter: Decision to DC Catheter Urinary Catheter Date of Insertion: 04/08/22 Urinary Catheter Time of Insertion: 12:20 Date Urinary Catheter Removed: 04/09/22 Time Urinary Catheter Discontinued: 12:00 Data : 04/10/22 03:53 04/10/22 03:53 Attestations Medical Necessity Statement*: Colon cancer Coding Level of Care Code Acute Director Craft Center for Jasson Pastrana
--- NOTE | 2022-04-10 13:14 | PC.NURSE ---
ngt advanced 15cm per physicians request. Pt tolerated ok. will wait for xray before continuing suction.
--- NOTE | 2022-04-10 13:15 | XRR_ITS ---
PROCEDURE INFORMATION: Exam: XR Abdomen Exam date and time: 04/10/2022 1:32 PM Age: 72 years old Clinical indication: Device placement; Gi device; Nasogastric tube; Additional info: Ngt advanced 15cm, portable TECHNIQUE: Imaging protocol: Radiologic exam of the abdomen. Views: Frontal supine view of the abdomen. 1 View. COMPARISON: CR (ABDOMEN, ) 04/10/2022 10:55 AM FINDINGS: Tubes, catheters and devices: There is a nasogastric tube whose tip is in the gastric fundus. Gastrointestinal tract: There is small bowel dilation. Bones/joints: Unremarkable. XR/XR abdomen 1V* [id number] IMPRESSION: There is a nasogastric tube whose tip is in the gastric fundus.
[2022-04-10] MEDS: pantoprazole 40 mg SDV IVP (14:35)
[2022-04-10 15:59] VITALS: BP 151/85; PULSE 88; RESP 18; TEMP 36.4; O2SAT 94
[2022-04-10] MEDS: sennosides 8.6 mg Tablet 17.2 MG PO (19:58)
[2022-04-10 20:00] VITALS: BP 148/90; PULSE 90; RESP 18; TEMP 36.6; O2SAT 97
[2022-04-11] VITALS: BP 114/61; PULSE 90; RESP 12; TEMP 36.8; O2SAT 94
[2022-04-11] MEDS: D5-NS 0.45% + KCL 20 mEq 20 MEQ/1,000 ML BAG 125 MEQ IV (01:44)
[2022-04-11 04:00] VITALS: BP 119/80; PULSE 83; RESP 12; TEMP 36.6; O2SAT 94
[2022-04-11 05:48] LABS: Basophils % 0.5 %; Eosinophils # 0.2 10^3/uL (0.0-0.8); Eosinophils % 2.8 %; Hematocrit 34.3 % (37.0-47.0); Hemoglobin 10.6 g/dL (11.5-15.3); Lymphocytes # 1.5 10^3/uL (0.8-4.8); Mean Corpuscular HGB Conc 30.9 g/dL (30.0-36.0); Mean Corpuscular Hemoglobin 27.1 pg (28.0-34.0); Mean Corpuscular Volume 87.7 fl (81-99); Mean Platelet Volume 8.8 fL (7.4-10.4); Monocytes # 0.8 10^3/uL (0.2-0.9); Monocytes % 10.7 %; Neutrophils % 65.7 %; Nucleated Red Blood Cells % 0 %; Platelet Count 374 10^3/cmm (130-400); Red Blood Count 3.91 10^6/uL (4.1-5.3); White Blood Count 7.5 10^3/uL (4.0-10.0)
[2022-04-11 06:08] LABS: Anion Gap 13.8 (5-19); Blood Urea Nitrogen 3 mg/dL (8-23); Calcium 8.6 mg/dL (8.5-10.5); Carbon Dioxide 25 mmol/L (22-29); Chloride 104 mmol/L (98-107); Glucose 123 mg/dL (65-115); Osmolality Calculated 286 mOsm/kg (285-295); Potassium 3.8 mmol/L (3.5-5.1); Sodium 139 mmol/L (136-145)
[2022-04-11 07:45] VITALS: BP 142/94; PULSE 91; RESP 18; TEMP 36.8; O2SAT 96
[2022-04-11] MEDS: docusate sodium 100 mg Capsule PO ×2 (10:12→17:44)
[2022-04-11] MEDS: enoxaparin 80 mg/0.8 mL Syringe 70 MG SUBCUT ×2 (10:12→20:34)
--- NOTE | 2022-04-11 10:25 | PM.PN ---
Subjective Subjective: No acute events overnight. NG tube was advanced to decompress the stomach. Pain continues to improve. About 600 cc of fluid is constant in the NG tube canister, mostly water that she drinks with medicine. No bile. Vitals/I&O/Wt Last Vital Signs Temp 98.3 F 04/11/22 07:45 Pulse 91 04/11/22 07:45 Resp 18 04/11/22 07:45 BP 142/94 04/11/22 07:45 Pulse Ox 96 04/11/22 07:45 O2 Del Method 04/11/22 07:45 O2 Flow Rate 2 04/10/22 04:32 04/10/22 04/11/22 04/11/22 22:59 06:59 14:59 Intake Total 935.417 / 9547.331 3965 / 2875.000 Output Total 125 / 125 150 / 275 Balance 810.417 / 1750.000 850 / 2600.000 Physical Exam Narrative: No acute distress. Comfortable. No jugular venous distention. NG tube is in the nose, seems to be shifted out, minimal output Abdomen is much less distended, mild tenderness to palpation around incisions, all wounds are clean dry intact Urinary Catheter Management: Bravo: Cath Placed During This Visit: yes, but has since been removed by the nurse Reason for Continuing Indwelling Catheter: Decision to DC Catheter Urinary Catheter Date of Insertion: 04/08/22 Urinary Catheter Time of Insertion: 12:20 Date Urinary Catheter Removed: 04/09/22 Time Urinary Catheter Discontinued: 12:00 Data : 04/11/22 05:35 04/11/22 05:35 A&P Assessment and plan (1) Status post right hemicolectomy: (2) Colon cancer: Plan Remove NG tube, clear liquid diet, Protonix to oral, ambulation, continue therapeutic Lovenox, reassess for diet advancement tomorrow a.m. Labs are normal, no indications for daily labs unless there is some changes in clinical status. Attestations Medical Necessity Statement*: Surgery Coding Level of Care Code Acute State'S Attorney for Jasson Pastrana Diagnoses Status post right hemicolectomy Z90.49 Colon cancer C18.9
[2022-04-11] MEDS: pantoprazole DR 40 mg Tablet PO (10:45)
[2022-04-11] MEDS: D5-NS 0.45% + KCL 20 mEq 20 MEQ/1,000 ML BAG 50 MEQ IV (10:46)
[2022-04-11 11:56] VITALS: BP 127/81; PULSE 83; RESP 18; TEMP 36.5; O2SAT 97
[2022-04-11 15:39] VITALS: BP 144/89; PULSE 75; RESP 16; TEMP 36.8; O2SAT 97
[2022-04-11 19:40] VITALS: BP 120/69; PULSE 98; RESP 20; TEMP 36.6; O2SAT 93
[2022-04-11] MEDS: sennosides 8.6 mg Tablet 17.2 MG PO (20:34)
[2022-04-12] VITALS: BP 102/67; PULSE 105; RESP 18; TEMP 36.7; O2SAT 97
[2022-04-12 03:28] LABS: Basophils % 0.6 %; Eosinophils # 0.3 10^3/uL (0.0-0.8); Eosinophils % 3.6 %; Hematocrit 35.9 % (37.0-47.0); Lymphocytes # 1.7 10^3/uL (0.8-4.8); Lymphocytes % 23.9 %; Mean Corpuscular HGB Conc 30.6 g/dL (30.0-36.0); Mean Corpuscular Hemoglobin 26.8 pg (28.0-34.0); Mean Corpuscular Volume 87.6 fl (81-99); Monocytes # 0.7 10^3/uL (0.2-0.9); Neutrophils # 4.25 10^3/uL (1.8-7.7); Neutrophils % 61.5 %; Nucleated Red Blood Cells % 0 %; Platelet Count 425 10^3/cmm (130-400); Red Cell Distribution Width 14.9 % (12.1-15.1); White Blood Count 6.9 10^3/uL (4.0-10.0)
[2022-04-12 03:47] VITALS: BP 120/74; PULSE 100; RESP 14; TEMP 36.7; O2SAT 98
[2022-04-12 03:50] LABS: Blood Urea Nitrogen 3 mg/dL (8-23); Calcium 8.7 mg/dL (8.5-10.5); Carbon Dioxide 23 mmol/L (22-29); Chloride 106 mmol/L (98-107); Glucose 97 mg/dL (65-115); Osmolality Calculated 282 mOsm/kg (285-295); Sodium 138 mmol/L (136-145)
[2022-04-12] MEDS: D5-NS 0.45% + KCL 20 mEq 20 MEQ/1,000 ML BAG 50 MEQ IV ×2 (04:45→23:38)
[2022-04-12 08:00] VITALS: BP 131/86; PULSE 89; RESP 18; TEMP 36.8; O2SAT 95
--- NOTE | 2022-04-12 08:14 | P.PN_ITS ---
Subjective Subjective: Patient's pain is well controlled. Positive BM and flatus. Denies any nausea or vomiting Vitals/I&O/Wt Last Vital Signs Temp 98.0 F 04/12/22 03:47 Pulse 100 04/12/22 03:47 Resp 14 04/12/22 03:47 BP 120/74 04/12/22 03:47 Pulse Ox 98 04/12/22 03:47 O2 Del Method 04/12/22 03:47 O2 Flow Rate 2 04/10/22 04:32 04/11/22 04/12/22 04/12/22 22:59 06:59 14:59 Intake Total 660 / 1660 1019.167 / 2679.167 Balance 660 / 1660 1019.167 / 2679.167 Physical Exam Narrative: General: No acute distress, awake alert and oriented x3 Cardiovascular: Tachycardic Abdomen: Soft, mildly distended, appropriately tender, no guarding rebound or masses Incisions intact without erythema or exudate Urinary Catheter Management: Bravo: Cath Placed During This Visit: yes, but has since been removed by the nurse Reason for Continuing Indwelling Catheter: Decision to DC Catheter Urinary Catheter Date of Insertion: 04/08/22 Urinary Catheter Time of Insertion: 12:20 Date Urinary Catheter Removed: 04/09/22 Time Urinary Catheter Discontinued: 12:00 Data : 04/12/22 03:00 04/12/22 03:00 A&P Assessment and plan (1) Status post right hemicolectomy: (2) Colon cancer: Plan Full liquid diet Ambulate Likely discharge home tomorrow on soft diet Patient staying at least 1 more day due to tachycardia overnight Attestations Medical Necessity Statement*: Patient requires at least 1 more night in the hospital for observation and diet management. She was tachycardic overnight and needs further observation. Coding Level of Care Code Acute Surgical Territory Manager for Jasson Pastrana Diagnoses Status post right hemicolectomy Z90.49 Colon cancer C18.9
[2022-04-12 12:00] VITALS: BP 103/71; PULSE 99; RESP 18; TEMP 36.3; O2SAT 93
[2022-04-12] MEDS: enoxaparin 80 mg/0.8 mL Syringe 70 MG SUBCUT ×2 (12:10→20:23)
[2022-04-12] MEDS: docusate sodium 100 mg Capsule PO ×2 (12:11→18:14)
[2022-04-12] MEDS: pantoprazole DR 40 mg Tablet PO (12:11)
[2022-04-12 16:00] VITALS: BP 112/71; PULSE 109; RESP 18; O2SAT 99
[2022-04-12 20:00] VITALS: BP 126/76; PULSE 90; RESP 20; TEMP 36.6; O2SAT 98
[2022-04-12] MEDS: sennosides 8.6 mg Tablet 17.2 MG PO (20:23)
[2022-04-13] VITALS: BP 129/75; PULSE 79; RESP 22; TEMP 36.4; O2SAT 95
[2022-04-13 03:00] LABS: Basophils # 0.1 10^3/uL (0.0-0.1); Basophils % 0.7 %; Eosinophils # 0.3 10^3/uL (0.0-0.8); Eosinophils % 4.5 %; Hematocrit 32.4 % (37.0-47.0); Hemoglobin 10.1 g/dL (11.5-15.3); Lymphocytes # 1.8 10^3/uL (0.8-4.8); Lymphocytes % 26.5 %; Mean Corpuscular HGB Conc 31.2 g/dL (30.0-36.0); Mean Corpuscular Hemoglobin 27.1 pg (28.0-34.0); Mean Corpuscular Volume 86.9 fl (81-99); Mean Platelet Volume 9.2 fL (7.4-10.4); Monocytes # 0.7 10^3/uL (0.2-0.9); Monocytes % 10.6 %; Neutrophils # 3.88 10^3/uL (1.8-7.7); Nucleated Red Blood Cells % 0 %; Platelet Count 440 10^3/cmm (130-400); Red Blood Count 3.73 10^6/uL (4.1-5.3); Red Cell Distribution Width 14.8 % (12.1-15.1); White Blood Count 6.8 10^3/uL (4.0-10.0)
[2022-04-13 03:32] LABS: Anion Gap 16.5 (5-19); Blood Urea Nitrogen 6 mg/dL (8-23); Carbon Dioxide 22 mmol/L (22-29); Chloride 102 mmol/L (98-107); Glucose 96 mg/dL (65-115); Osmolality Calculated 279 mOsm/kg (285-295); Potassium 4.5 mmol/L (3.5-5.1); Sodium 136 mmol/L (136-145)
[2022-04-13 04:00] VITALS: BP 122/83; PULSE 92; RESP 20; TEMP 36.3; O2SAT 96
[2022-04-13] MEDS: enoxaparin 80 mg/0.8 mL Syringe 70 MG SUBCUT (07:13)
[2022-04-13] MEDS: docusate sodium 100 mg Capsule PO (07:16)
[2022-04-13] MEDS: pantoprazole DR 40 mg Tablet PO (07:16)
[2022-04-13 07:29] VITALS: BP 139/77; PULSE 84; RESP 20; TEMP 36.7; O2SAT 94
--- NOTE | 2022-04-13 09:04 | P.DS_ITS ---
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 On 04/08/2022 she underwent a laparoscopic right hemicolectomy. She did very well postoperatively and was discharged home on a regular diet and in good condition. Physical Exam Narrative: General : Patient is well developed , no acute distress, oriented x3 Head : Normal cephalic, a-traumatic. Ears : Pinnae and external canal are normal. Hearing is normal. Eyes : PERRLA, Sclera and injection are normal. No conjunctival discharge. Nose : Mucous membranes are without erythema. Throat : buccal mucosa is normal, gums are without significant recession or hypertrophy. Lungs : Equal chest rise bilaterally, no use of accessory muscles, trachea is midline. Cor : Rate and rhythm are normal. Abdomen : Soft, ND, appropriately tender, no g/r/m Incisions intact without erythema or exudate Extremities : No edema, no cyanosis or clubbing, dorsalis pedis pulses are present bilaterally, non-tender to palpation of calves. Upper extremities are normal bilaterally. Back : non-tender to palpation, no CVA tenderness. Neuro : CN II - XII intact, Upper and lower extremities have equal and full strength Urinary Catheter Management: Bravo: Cath Placed During This Visit: yes, but has since been removed by the nurse Reason for Continuing Indwelling Catheter: Decision to DC Catheter Urinary Catheter Date of Insertion: 04/08/22 Urinary Catheter Time of Insertion: 12:20 Date Urinary Catheter Removed: 04/09/22 Time Urinary Catheter Discontinued: 12:00 Discharge Data Studies Completed and Pending Completed Studies During Hospitalization Category Date Time Status XR abdomen 1V* [id number] Stat Exams 04/10/22 10:56 Completed XR abdomen 1V* [id number] Stat Exams 04/10/22 13:15 Completed Pending at discharge Category Date Time Status Pathology: Surgical [PTH] Routine Pth 04/08/22 13:38 Received Radiology Impressions Abdomen X-Ray 04/10/22 13:15 IMPRESSION: There is a nasogastric tube whose tip is in the gastric fundus. Laboratory Results WBC 6.8 10^3/uL (4.0-10.0) 04/13/22 02:09 RBC 3.73 10^6/uL (4.1-5.3) L 04/13/22 02:09 Hgb 10.1 g/dL (11.5-15.3) L 04/13/22 02:09 Hct 32.4 % (37.0-47.0) L 04/13/22 02:09 MCV 86.9 fl (81-99) 04/13/22 02:09 MCH 27.1 pg (28.0-34.0) L 04/13/22 02:09 MCHC 31.2 g/dL (30.0-36.0) 04/13/22 02:09 RDW 14.8 % (12.1-15.1) 04/13/22 02:09 Plt Count 440 10^3/cmm (130-400) H 04/13/22 02:09 MPV 9.2 fL (7.4-10.4) 04/13/22 02:09 Neut % (Auto) 57.0 % 04/13/22 02:09 Lymph % (Auto) 26.5 % 04/13/22 02:09 [place] % (Auto) 10.6 % 04/13/22 02:09 Eos % (Auto) 4.5 % 04/13/22 02:09 Baso % (Auto) 0.7 % 04/13/22 02:09 Neut # (Auto) 3.88 10^3/uL (1.8-7.7) 04/13/22 02:09 Lymph # (Auto) 1.8 10^3/uL (0.8-4.8) 04/13/22 02:09 [place] # (Auto) 0.7 10^3/uL (0.2-0.9) 04/13/22 02:09 Eos # (Auto) 0.3 10^3/uL (0.0-0.8) 04/13/22 02:09 Baso # (Auto) 0.1 10^3/uL (0.0-0.1) 04/13/22 02:09 Nucleated RBC % (auto) 0 % 04/13/22 02:09 Nucleated RBCs # 0.0 /100WBC 04/13/22 02:09 Sodium 136 mmol/L (136-145) 04/13/22 02:09 Potassium 4.5 mmol/L (3.5-5.1) 04/13/22 02:09 Chloride 102 mmol/L (98-107) 04/13/22 02:09 Carbon Dioxide 22 mmol/L (22-29) 04/13/22 02:09 Anion Gap 16.5 (5-19) 04/13/22 02:09 BUN 6 mg/dL (8-23) L 04/13/22 02:09 Creatinine 0.6 mg/dL (0.5-0.9) 04/13/22 02:09 GFR Calculation Not Reportable 04/13/22 02:09 Glucose 96 mg/dL (65-115) 04/13/22 02:09 Calculated Osmolality 279 mOsm/kg (285-295) L 04/13/22 02:09 Calcium 9.0 mg/dL (8.5-10.5) 04/13/22 02:09 Blood Type A Positive 04/08/22 09:30 Rho(D) Type Positive 04/08/22 09:30 Antibody Screen Negative 04/08/22 09:30 Procedures Performed Laparoscopic right hemicolectomy Vitals Last Vital Signs Temp 98.0 F 04/13/22 07:29 Pulse 84 04/13/22 07:29 Resp 20 H 04/13/22 07:29 BP 139/77 04/13/22 07:29 Pulse Ox 94 04/13/22 07:29 O2 Del Method 04/13/22 07:29 O2 Flow Rate 2 04/10/22 04:32 Discharge Plan Discharge Patient Disposition: Home Condition: Stable Prescriptions: New hydrocodone-acetaminophen 7.5-325 mg tablet 1 tab PO Q8H PRN (Reason: pain) Qty: 20 0RF Continued atorvastatin 40 mg tablet 40 mg PO BEDTIME Qty: 90 3RF Protonix 40 mg tablet,delayed release (DR/EC) 40 mg PO DAILY Qty: 90 2RF Eliquis 5 mg tablet 5 mg PO BID Qty: 180 3RF Hold Instructions: Resume on 04/11/22. peg 3350-electrolytes [Golytely] 236-22.74-6.74 -5.86 gram recon soln 240 ml PO Q10M Qty: 4000 0RF Rx Instructions: until fecal effluent is clear aspirin 81 mg Tablet,Delayed Release (Dr/Ec) 81 mg PO DAILY 30 Days Qty: 30 3RF ascorbic acid (vitamin C) [Vitamin C] 500 mg Tablet 500 mg PO DAILY cyanocobalamin (vitamin B-12) [Vitamin B-12] 2,000 mcg Tablet Extended Release 5,000 mcg PO DAILY ferrous sulfate 325 mg (65 mg iron) Capsule, Extended Release 325 mg PO DAILY cholecalciferol (vitamin D3) [Vitamin D3] 25 mcg (1,000 unit) Capsule 25 mcg PO DAILY dqayhsjj-qmc-FN-lycopen-lutein 0.4 mg-300 mcg- 250 mcg Tablet 1 tab PO DAILY Glucosamine Chondroitin 550-30-1 mg Capsule 1 cap PO DAILY xljyfmr-pzlr-locyu-oreg-capryl 100 mg-150 mg- 50 mg-150 mg Capsule 1 cap PO DAILY Discharge Orders: Discharge Order (Routine); Ordered 04/13/22 Ordered By: Saud Pisano Referrals: Saud Pisano DO [Physician] - 1 week Discharge Diet: Advance as tolerated Discharge Activity: Limit activity as instructed Patient Instructions: Opioid Safety Activity Restrictions/Additional Instructions: No lifting, pushing or pulling over 15 pounds for 6 weeks. Do not soak incisions underwater for 2 weeks. Shower daily. Discharge Attestations Time Spent in Discharge Care*: less than 30 min Quality Metrics Clinical Quality Measures [ No reported AMI, CVA or VTE this stay] Coding Level of Care Code Acute Chg CHAUNCEY note Diagnoses Status post right hemicolectomy Z90.49 Colon cancer C18.9
--- NOTE | 2022-04-13 10:13 | PC.SOCIAL ---
IMM Update pg 2 of IMM updated and reviewed w/ patient. Copy provided and copy in chart dated and initialed.
[2022-04-13 12:21] VITALS: BP 139/77; PULSE 84; RESP 20; TEMP 36.7; O2SAT 94
[2022-04-16 13:04] LABS: Mismatch Repari Proteins-IHC See Report
[2022-04-27 06:51] LABS: BRAF PCR Mutation See Report
--- NOTE | 2022-04-27 13:49 | W.PM.OPSUD ---
Surgery/Procedure H&P Update DATE OF PROCEDURE: April 27, 2022 DATE H&P PERFORMED: 04/02/22 PREOP DIAGNOSIS: Colon cancer PLANNED PROCEDURE: Operation Date: 04/08/22 10:50 Proposed Procedures p Laparoscopic Right Hemicolectomy 88058/ K63.89 MASS OF COLON(Right) - Saud Pisnao DO
== END 2022-04-13 11:00 | disposition home or self-care (01) | DRG 331 ==
LOC: MEDSURG 04-09 04:02
PROVIDERS: Admitting Provider Surgery; PCP Family Medicine; Visit Provider Surgery
PROC: 0DTF4ZZ Resection of Right Large Intestine, Percutaneous Endoscopic Approach (ICD-10-PCS; CPT 44205; principal; 2022-04-08 10:40)
DX: C18.0 Malignant neoplasm of cecum (principal); R00.0 Tachycardia, unspecified; I25.2 Old myocardial infarction; I10 Essential (primary) hypertension; E78.5 Hyperlipidemia, unspecified; Z86.711 Personal history of pulmonary embolism; Z79.82 Long term (current) use of aspirin; Z79.01 Long term (current) use of anticoagulants; Z86.73 Personal history of transient ischemic attack (TIA), and cerebral infarction without residual deficits; Z86.718 Personal history of other venous thrombosis and embolism
CPT/HCPCS: 12345; 36415; 51702; 74018; 80048; 81210; 85025; 86850; 86900; 88309; 88360; 96372; C9113; J1100; J1644; J1650; J2270; J2405; J2704; J3010; J3490; J7030

== ENCOUNTER → 2022-04-20 08:51 | Outpatient (BNVA) | payer MEDICARE, OTHER, SELFPAY | PROVIDERS: PCP Family Medicine; Visit Provider Surgery | DX: C18.2 Malignant neoplasm of ascending colon (principal); Z98.890 Other specified postprocedural states | CPT/HCPCS: 99024 ==

== ENCOUNTER → 2022-05-04 12:52 | Outpatient (BNVA) | payer MEDICARE, OTHER, SELFPAY | PROVIDERS: PCP Family Medicine; Visit Provider Surgery | DX: Z98.890 Other specified postprocedural states (principal); C18.2 Malignant neoplasm of ascending colon | CPT/HCPCS: 99024 ==

== ENCOUNTER 2022-05-05 07:40 | Oncology outpatient (recurring) (ONCR) | payer MEDICARE, OTHER, SELFPAY | END 2022-06-02 23:59 | disposition home or self-care (01) | PROVIDERS: PCP Family Medicine; Visit Provider Internal Medicine Hematology & Oncology | DX: C18.8 Malignant neoplasm of overlapping sites of colon (principal); Z90.49 Acquired absence of other specified parts of digestive tract; Z87.891 Personal history of nicotine dependence | CPT/HCPCS: 99204 ==

== ENCOUNTER → 2022-05-10 10:22 | Outpatient (BNVA) | payer MEDICARE, OTHER, SELFPAY | PROVIDERS: PCP Family Medicine; Visit Provider Surgery | DX: Z98.890 Other specified postprocedural states (principal) | CPT/HCPCS: 99024 ==

== ENCOUNTER 2022-07-26 09:41 | Outpatient (CLI) | payer MEDICARE, OTHER, SELFPAY ==
--- NOTE | 2022-07-26 10:00 | USCV_ITS ---
Miriam Courtney Age: 72 Gender: F : 1950 Exam Date: 07/26/2022 09:57 Ordering Phys: Garett Sousa MD (Andy) ([email or web address] [place] Technologist: NAWAF Exam Location: [facility] [place] Indication: AAA HISTORY: Diameter (cm) AP x Transverse x Length Velocity (cm/s) Waveform Prox Aorta: 2.63 x 2.42 x 46.00 Triphasic Mid Aorta: 3.37 x 3.78 x 7.14 37.60 Triphasic Distal Aorta: 2.69 x 1.74 x 57.30 Triphasic Right Iliac Prox: 1.12 x 1.30 x 96.70 Triphasic Left Iliac Prox: 1.31 x 1.24 x 92.40 Triphasic Stent Prox Landing x x Aneurysmal Sac Max x x Lt Lat Sac Dim Rt Lat Sac Dim Stent Dist Landing x x Right Iliac Stent x x Left Iliac Stent x x Right Renal Art Left Renal Art FINDINGS: AAA seen at Mid AO with calcification seen within. CONCLUSIONS AAA mid aorta 3.3 x 3.7 x 7.1cm AP x transverse x CC. Moderate calcified atheromatous disease. Normal iliac arteries Raúl Ace MD (Electronically Signed) Final Date: 26 July 2022 11:27 S
== END 2022-07-26 09:42 | disposition home or self-care (01) ==
LOC: RAD 09:49
PROVIDERS: PCP Family Medicine; Visit Provider Thoracic Surgery (Cardiothoracic Vascular Surgery)
DX: I71.40 Abdominal aortic aneurysm, without rupture, unspecified (principal); I26.99 Other pulmonary embolism without acute cor pulmonale
CPT/HCPCS: 93978

== ENCOUNTER 2022-08-10 10:40 | Oncology outpatient (recurring) (ONCR) | payer MEDICARE, OTHER, SELFPAY ==
[2022-08-10 11:05] LABS: Basophils # 0.1 10^3/uL (0.0-0.1); Eosinophils # 0.2 10^3/uL (0.0-0.8); Eosinophils % 2.2 %; Hematocrit 46.1 % (37.0-47.0); Hemoglobin 14.9 g/dL (11.5-15.3); Lymphocytes # 1.9 10^3/uL (0.8-4.8); Lymphocytes % 24.4 %; Mean Corpuscular HGB Conc 32.3 g/dL (30.0-36.0); Mean Corpuscular Hemoglobin 29.6 pg (28.0-34.0); Mean Corpuscular Volume 91.7 fl (81-99); Mean Platelet Volume 9.5 fL (7.4-10.4); Monocytes # 0.9 10^3/uL (0.2-0.9); Monocytes % 11.2 %; Neutrophils # 4.74 10^3/uL (1.8-7.7); Neutrophils % 61.1 %; Nucleated Red Blood Cells % 0 %; Platelet Count 273 10^3/cmm (130-400); Red Blood Count 5.03 10^6/uL (4.1-5.3); Red Cell Distribution Width 15.5 % (12.1-15.1); White Blood Count 7.8 10^3/uL (4.0-10.0)
[2022-08-10 11:30] LABS: Carcinoembryonic Antigen 3.2 ng/mL (0.0-4.7)
[2022-08-10 11:41] LABS: Alanine Aminotransferase 49 U/L (0-33); Albumin Level 4.4 g/dL (3.5-5.2); Alkaline Phosphatase 91 U/L (35-105); Anion Gap 15.2 (5-19); Aspartate Amino Transferase 32 U/L (0-32); Blood Urea Nitrogen 15 mg/dL (8-23); Calcium 9.5 mg/dL (8.5-10.5); Carbon Dioxide 26 mmol/L (22-29); Chloride 101 mmol/L (98-107); Globulin 2.8 g/dL (1.3-4.6); Glucose 95 mg/dL (65-115); Osmolality Calculated 287 mOsm/kg (285-295); Potassium 4.2 mmol/L (3.5-5.1); Sodium 138 mmol/L (136-145); Total Bilirubin 0.4 mg/dL (0.15-1.2); Total Protein 7.2 g/dL (6.6-8.7)
== END 2022-08-31 23:59 | disposition home or self-care (01) ==
PROVIDERS: PCP Family Medicine; Visit Provider Internal Medicine Hematology & Oncology
DX: Z90.49 Acquired absence of other specified parts of digestive tract; Z87.891 Personal history of nicotine dependence; Z08 Encounter for follow-up examination after completed treatment for malignant neoplasm; Z85.068 Personal history of other malignant neoplasm of small intestine
CPT/HCPCS: 36415; 80053; 82378; 85025; 99213; 99214

== ENCOUNTER → 2022-08-11 14:39 | Outpatient (BNVA) | payer MEDICARE, OTHER, SELFPAY | PROVIDERS: PCP Family Medicine; Visit Provider Internal Medicine Cardiovascular Disease | DX: I10 Essential (primary) hypertension (principal); I26.99 Other pulmonary embolism without acute cor pulmonale; I82.409 Acute embolism and thrombosis of unspecified deep veins of unspecified lower extremity; E78.5 Hyperlipidemia, unspecified; I63.239 Cerebral infarction due to unspecified occlusion or stenosis of unspecified carotid artery; N28.0 Ischemia and infarction of kidney; Z87.891 Personal history of nicotine dependence | CPT/HCPCS: 99214; Q3014 ==

== ENCOUNTER 2022-08-31 15:00 | Outpatient (CLI) | payer MEDICARE, OTHER, SELFPAY ==
--- NOTE | 2022-08-31 16:30 | CT_ITS ---
WS: [id number] CT ABDOMEN AND PELVIS NONCONTRAST HISTORY: Follow-up colon cancer. TECHNIQUE: Imaging performed through the abdomen and pelvis. Coronal and sagittal reformats are submi tted. All CT scans at [facility] use at least one of these dose optimization techniques: auto mated exposure control; mA and/or kV adjustment per patient size (includes targeted exams where dose is matched to clinical indication); or iterative reconstruction. DLP: 522.20 mGy.cm COMPARISON: 02/09/2022 Lower thorax: Chronic emphysematous changes at the lung bases. No hiatal hernia. Liver: Elongated RIGHT lobe the liver extends 20 cm in length. Similar to the prior study and probabl y a Kane's lobe. Cannot evaluate for metastatic lesions with no IV contrast. Gallbladder: Contracted. No adjacent inflammation. Pancreas: Atrophied pancreas. The head is not very well visualized due to lack of contrast. Spleen: Normal size with granulomata. Adrenal glands: Normal. No mass. Right kidney: Normal size kidney with central nonobstructing calcifications. Left kidney: Interval change in appearance of the LEFT kidney. Kidney is mildly enlarged with mild hy droureteronephrosis. LEFT ureter is tortuous and dilated throughout its course. Irregular soft tissue mass measuring 11 mm near the distal LEFT ureter projecting into the urinary bladder. Consistent wit h transitional cell carcinoma until proven otherwise. No additional bladder wall thickening identifie d on this unenhanced study. LEFT renal cyst 3.4 x 2.5 cm. Nonobstructing LEFT renal calcifications. Aorta: Atherosclerosis aorta. Abdominal aortic aneurysm measuring 3.9 cm. Similar diameter to the cathie or study. No free fluid, intraperitoneal air or significant lymphadenopathy. GI tract: Markedly distended stomach with food products. No small bowel obstruction. Patient is statu s post RIGHT colectomy. No recurrent mass or obstruction of the anastomosis. No adjacent lymph nodes. Abdominal wall: Mild soft tissue thickening near the umbilicus. There is no fluid collection or mass identified. Pelvis: No free fluid. Patient has known bilateral ovarian dermoids. Fat-containing adnexal masses. T he largest on the LEFT measures 5.2 x 3.4 cm. The RIGHT is more difficult to visualize and not defini tely seen on today's examination. Well-distended urinary bladder. Soft tissue mass in the LEFT urinary bladder near the ureteral orific e. Mass measures 11 mm. Osseous structures: Scoliosis lumbar spine. Advanced facet joint arthritis in the lower lumbar spine. CT/CT abdomen pelvis wo con [id number] IMPRESSION: 1. Status post colectomy. No recurrent adenopathy or obstruction involving the anastomotic site. 2. Very minimal soft tissue thickening near the umbilicus. No fluid collection identified. 3. New mild LEFT hydroureteronephrosis. New obstruction since 02/09/2022. Increa sed soft tissue consistent with a bladder neoplasm obstructing the distal LEFT ureter projecting into the urinary bladder. Transitional cell carcinoma suspect ed measuring 11 mm. Recommend follow-up with urology. 4. No change infrarenal abdominal aortic aneurysm.
== END 2022-08-31 15:01 | disposition home or self-care (01) ==
LOC: RAD 15:03
PROVIDERS: PCP Family Medicine; Visit Provider Internal Medicine Hematology & Oncology
DX: C18.2 Malignant neoplasm of ascending colon (principal)
CPT/HCPCS: 74176

== ENCOUNTER → 2022-09-06 13:53 | Outpatient (BNVA) | payer MEDICARE, OTHER, SELFPAY | PROVIDERS: PCP Family Medicine; Visit Provider Nurse Practitioner Family | DX: D41.4 Neoplasm of uncertain behavior of bladder (principal) | CPT/HCPCS: 99213 ==

== ENCOUNTER 2022-09-22 07:43 | Oncology outpatient (recurring) (ONCR) | payer MEDICARE, OTHER, SELFPAY ==
[2022-09-22 08:29] LABS: Carcinoembryonic Antigen 3.5 ng/mL (0.0-4.7)
[2022-09-22 10:41] LABS: Alanine Aminotransferase 45 U/L (0-33); Albumin Level 4.5 g/dL (3.5-5.2); Alkaline Phosphatase 98 U/L (35-105); Anion Gap 19.3 (5-19); Aspartate Amino Transferase 39 U/L (0-32); Blood Urea Nitrogen 18 mg/dL (8-23); Calcium 9.5 mg/dL (8.5-10.5); Carbon Dioxide 27 mmol/L (22-29); Chloride 101 mmol/L (98-107); Globulin 3.5 g/dL (1.3-4.6); Glucose 80 mg/dL (65-115); Osmolality Calculated 297 mOsm/kg (285-295); Potassium 4.3 mmol/L (3.5-5.1); Sodium 143 mmol/L (136-145); Total Bilirubin 0.5 mg/dL (0.15-1.2)
== END 2022-10-01 23:59 | disposition home or self-care (01) ==
PROVIDERS: PCP Family Medicine; Visit Provider Internal Medicine Hematology & Oncology
DX: Z08 Encounter for follow-up examination after completed treatment for malignant neoplasm (principal); Z85.068 Personal history of other malignant neoplasm of small intestine; Z90.49 Acquired absence of other specified parts of digestive tract; Z87.891 Personal history of nicotine dependence
CPT/HCPCS: 36415; 80053; 82378; 99214

== ENCOUNTER 2022-11-22 09:31 | Oncology outpatient (recurring) (ONCR) | payer MEDICARE, OTHER, SELFPAY ==
--- NOTE | 2022-11-23 08:55 | N.ONRAD NP_ITS ---
Radiation Oncology New Patient Visit Patient: Miriam Courtney MR#: [id number] : 1950 Age: 72 Sex: Female Dictated by: Beau Gay M.D.Date of Service: 11/22/2022 Referring Physician(s) : Anthony Seymour M.D. 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 Radiotherapy to date: Summary > No prior radiation therapy. Chief Complaint / History of Present Illness: Patient has had long standing minimal gross hematuria since being on Eliquis for previous DVT/PE. She has had rare nocturia, good flow with some urgency. She had a history of resected St II(T3 N0 M0) colonic carcinoma s/p resection alone 04/2022. She underwent screening CT abdomen and pelvis 08/31/2022 which revealed mass in left trigone of bladder and left hydroureteronephrosis. No adenopathy. Cysto and resection 11/03/2022. 2.5 cm mass covering left ureter. Gross total negative margin at transmural ureter was obtained. Stent placed. Path High grade papillary urothelial invading lamina propria and muscularis propria. No lymphovascular space invasion was seen. Now with only pink hematuria. On Eliquis. Fully active and living independently with her . No longer smoking. No pelvic or abdominal pain. She is clear that she wants bladder preservation and not a cystectomy. Current Medications: Aspirin atorvastatin pantoprazole ferrous sulfate vitamin D3 B12 glucosamine chondroitin ascorbic acid Allergies: Shellfish penicillin Medical History: No history of collagen vascular disease. No previous radiation therapy. Stage II colon carcinoma treated with surgery alone she has had history of DVT pulmonary emboli carotid stenosis, CVA Surgical History: : Surgery transurethral resection of the bladder tumor Family History: Not obtained Social History: 55 years. 2 daughters. Smoked 1/2 pack/day from age 18 to her early 70s. 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 had colorectal surgery here treated with radiation and chemo alone in 2019 now free of recurrence Current Complaints / Review of Systems: negative. Vital Signs: Performed on 11/22/2022 10:34 AM BMI - 23.568 kg/m2 (high), Height - 68 in, Weight - 155 lbs, Temperature - 97.4 f, Pulse - 80 /min, Respiration - 17 /min, O2 Sat - 98 %, Pain - 0, Fatigue - 0 and BP - 148/ 88 mm(hg)(high/). Physical Exam:Unremarkable. No adenopathy. Abd exam ok. No pedal edema. Performance Status: ECOG 0 Pathology: See above Lab: Imaging: See HPI Impression: Stage II (T2 N0 M0) high-grade urothelial carcinoma of the left trigone of the bladder. She had complete resection at cystoscopy. She does not want a cystectomy. I recommend comprehensive radiation to the bladder and pelvis to 40-45 Loo with a boost to the left trigone area to 50-60 Loo in combination with sensitizing chemotherapy. Traditional chemotherapy would be cisplatin. There is now a national shortage of this and gemcitabine may be used instead as discussed with Dr. Seymour. I discussed that she has a 70% chance of durable long-term control She will return here for simulation. We anticipate using IMRT treatment optimization. Overall treatment may be planned through simultaneous incorporated boost allowing dose intensity to the resection bed concurrent with prophylactic dose to the bladder and regional lymph nodes. Prior to embarking on treatment we will pursue restaging CT scan of the abdomen pelvis as well as screening CT scan of the chest in light of her smoking history. I discussed this in detail with the patient and her and Dr. Seymour. Plan: Signed by: 11/23/2022 8:54:55 AM <<Signature on File>> Time spent with patient: CPT Code: CPT Code:
== END 2022-12-01 23:59 | disposition home or self-care (01) ==
PROVIDERS: PCP Family Medicine; Visit Provider Internal Medicine Hematology & Oncology
DX: C67.8 Malignant neoplasm of overlapping sites of bladder; N13.30 Unspecified hydronephrosis; Z85.038 Personal history of other malignant neoplasm of large intestine; Z90.49 Acquired absence of other specified parts of digestive tract; Z79.899 Other long term (current) drug therapy; Z87.891 Personal history of nicotine dependence
CPT/HCPCS: 36415; 80053; 82378; 85025; 99205; 99215

== ENCOUNTER 2022-12-11 06:04 | Outpatient (CLI) | payer MEDICARE, OTHER, SELFPAY ==
--- NOTE | 2022-12-11 09:00 | PETR_ITS ---
PROCEDURE INFORMATION: Exam: PET/CT Skull Base to Mid-thigh Exam date and time: 12/11/2022 10:20 AM Age: 72 years old Clinical indication: Condition or disease; Primary cancer: Colorectal cancer; Initial oncological staging assessment; Additional info: Bladder cancer LABS AND CLINICAL REPORTS: Glucose: 115 mg/dl Treatment strategy for malignancy (PET staging): Initial Staging (PI) TECHNIQUE: Imaging protocol: Following at least four-hour fasting and following the injection of radiopharmaceutical, low dose CT images were obtained. Then, PET images were obtained. Attenuation corrected images were constructed using the CT scan. Fused images of PET and CT were reviewed. The standardized uptake values (SUV) reported below are maximum values within a region of interest, expressed in gm/ml. Exam includes orbital meatal line to mid-thigh. Radiopharmaceutical: 11.72 mCi F-18 FDG (Fluorodeoxyglucose), IV. Time of imaging post radiopharmaceutical administration: 1 hour Injection site: Right antecubital vein COMPARISON: CT abdomen pelvis con [id number] 08/31/2022 3:53 PM FINDINGS: Brain: Visualized brain has normal physiologic uptake. Pharynx: No abnormal uptake. Larynx: No abnormal uptake. Lungs, pleura and trachea: No abnormal uptake. No lung nodules or masses. Mild centrilobular emphysema in the upper lobes. No pleural effusion. Heart: Normal physiologic uptake. There is no cardiomegaly. Coronary artery calcification is present. There is no pericardial effusion. Mediastinal space: No abnormal uptake. Liver: There are FDG avid metastases in the right lobe including 3 cm lesion in the segment 6 measuring 9.3 SUV peripherally with hypometabolic center suggestive of necrotic changes, and 2 small foci in the segment 8 on images 69 and 77 measuring 1 cm/4.8 SUV and 1.2 cm /6 SUV. There is diffusely decreased density of liver parenchyma suggestive of fatty liver. Gallbladder and bile ducts: No abnormal uptake. No calcified gallstones. Pancreas: No abnormal uptake. Spleen: No abnormal uptake. No splenomegaly. Adrenal glands: No abnormal uptake. No nodules. Kidneys and ureters: Normal physiologic uptake. No hydronephrosis. Stable 3.6 cm simple cyst exophytic anteriorly from the midpole of the left kidney. Left ureteral stent is in place. Stomach and bowel: No abnormal uptake. No abnormal dilatation of the bowel. Stable changes after partial right colectomy with no abnormality in the ileocolic anastomosis. Intraperitoneal and retroperitoneal spaces: No abnormal uptake. No ascites. Bladder: Normal physiologic uptake. Reproductive: No abnormal uptake. Stable 5.4 x 4 cm left ovarian dermoid. Vasculature: No abnormal uptake. Lymph nodes: No abnormal uptake. No lymphadenopathy in the head, neck, chest, abdomen, pelvis, and extremities. Bones/joints: Increased uptake of 5.1 SUV at the costochondral junction of the left 6th rib on image 75 with slight sclerosis in the bone possibly represents benign uptake in posttraumatic lesion rather than bone metastasis. Sclerosis in the bone is new since prior exam on 08/31/2022. There are internal fixation pins within the right humeral head, neck and proximal shaft. Soft tissues: No abnormal uptake in the visualized head, neck, chest, abdomen, pelvis, and extremities. PET/PET skulltothi INITIAL [id number] IMPRESSION: 1. FDG avid liver metastases in the right hepatic lobe with 3 lesions ranging in size from 1 cm to 3 cm with the highest uptake of 9.3 SUV. No other findings convincing for FDG avid metastatic disease. 2. Increased uptake in the costochondral junction of the left 6 rib with subtle sclerosis in the bone new since 08/31/2022 likely represents benign posttraumatic finding.
== END 2022-12-11 06:05 | disposition home or self-care (01) ==
LOC: RAD 12-13 06:05
PROVIDERS: PCP Family Medicine; Visit Provider Internal Medicine Medical Oncology
DX: C18.2 Malignant neoplasm of ascending colon (principal); C67.9 Malignant neoplasm of bladder, unspecified; C78.7 Secondary malignant neoplasm of liver and intrahepatic bile duct; R93.7 Abnormal findings on diagnostic imaging of other parts of musculoskeletal system
CPT/HCPCS: 78815; A9552

== ENCOUNTER 2022-12-24 09:23 | Oncology outpatient (recurring) (ONCR) | payer MEDICARE, OTHER, SELFPAY ==
[2022-12-24 09:26] VITALS: BP 152/82; PULSE 59; RESP 18; TEMP 36.1; O2SAT 97
[2022-12-24 09:55] LABS: Basophils # 0.1 10^3/uL (0.0-0.1); Basophils % 0.7 %; Eosinophils # 0.3 10^3/uL (0.0-0.8); Eosinophils % 2.7 %; Hematocrit 42.8 % (37.0-47.0); Hemoglobin 14.2 g/dL (11.5-15.3); Lymphocytes # 1.3 10^3/uL (0.8-4.8); Lymphocytes % 11.8 %; Mean Corpuscular HGB Conc 33.2 g/dL (30.0-36.0); Mean Corpuscular Hemoglobin 30.3 pg (28.0-34.0); Mean Corpuscular Volume 91.5 fl (81-99); Mean Platelet Volume 9.1 fL (7.4-10.4); Monocytes # 1.2 10^3/uL (0.2-0.9); Monocytes % 10.5 %; Neutrophils # 8.37 10^3/uL (1.8-7.7); Neutrophils % 73.9 %; Nucleated Red Blood Cells % 0 %; Platelet Count 394 10^3/cmm (130-400); Red Blood Count 4.68 10^6/uL (4.1-5.3); Red Cell Distribution Width 12.8 % (12.1-15.1); White Blood Count 11.3 10^3/uL (4.0-10.0)
[2022-12-24 10:05] LABS: Alanine Aminotransferase 59 U/L (0-33); Albumin Level 4.1 g/dL (3.5-5.2); Alkaline Phosphatase 168 U/L (35-105); Anion Gap 14.5 (5-19); Aspartate Amino Transferase 40 U/L (0-32); Blood Urea Nitrogen 14 mg/dL (8-23); Calcium 9.4 mg/dL (8.5-10.5); Carbon Dioxide 26 mmol/L (22-29); Chloride 100 mmol/L (98-107); Globulin 3.4 g/dL (1.3-4.6); Glucose 79 mg/dL (65-115); Osmolality Calculated 281 mOsm/kg (285-295); Potassium 4.5 mmol/L (3.5-5.1); Sodium 136 mmol/L (136-145); Total Bilirubin 0.4 mg/dL (0.15-1.2); Total Protein 7.5 g/dL (6.6-8.7)
[2022-12-24 10:27] LABS: Carcinoembryonic Antigen 3.4 ng/mL (0.0-4.7)
== END 2022-12-31 23:59 | disposition home or self-care (01) ==
PROVIDERS: PCP Family Medicine; Visit Provider Internal Medicine Hematology & Oncology
DX: C67.8 Malignant neoplasm of overlapping sites of bladder; N13.30 Unspecified hydronephrosis; Z85.038 Personal history of other malignant neoplasm of large intestine; Z90.49 Acquired absence of other specified parts of digestive tract; R74.01 Elevation of levels of liver transaminase levels; R79.89 Other specified abnormal findings of blood chemistry
CPT/HCPCS: 36415; 80053; 82378; 85025; 99214

== ENCOUNTER 2023-01-11 10:58 | Outpatient (CLI) | payer MEDICARE, OTHER, SELFPAY ==
[2023-01-07 13:26] VITALS: BMI 21.2
[2023-01-11] VITALS (9 sets, daily range): BP systolic 118–158; BP diastolic 73–94; PULSE 87–94; RESP 18–22; TEMP 36.1; O2SAT 93–100
[2023-01-11] MEDS: sodium chloride 0.9% 1,000 ML 30 ML IV (11:39)
--- NOTE | 2023-01-11 12:45 | US_ITS ---
WS: [id number] ULTRASOUND-GUIDED LIVER BIOPSY CLINICAL INFORMATION: Liver Biopsy COMPARISON: PET CT December 11, 2022 TECHNIQUE: Conscious sedation was utilized. The procedure including risk, benefits, and complications were discussed with the patient who agreed to proceed. Timeout was performed. Using sterile technique, the patient was prepped and draped in the usual sterile fashion. Patient was positioned supine and ultrasound images were obtained through the liver. The RIGHT hepatic mass was selected. After 1% lidocaine using fluoroscopic guidance, a 18-gauge coaxial needle was advanced into the RIGHT liver mass. Approximately 7 samples were obtained. Post procedure ultrasound images demonstrate expe cted hemorrhage about the region 10 minutes postprocedure. No immediate complications. US/US biopsy liver [id number] IMPRESSION: 1. Multiple 18-gauge core samples were obtained of the RIGHT hepatic mass. No immediate complications. 2. Pathology is pending. 3. Patient was discharged 1 hour postprocedure in stable condition.
[2023-01-11] MEDS: midazolam 1 mg/mL INJ 2 mL 2 MG IVP (12:55)
[2023-01-11] MEDS: fentaNYL 50 mcg/mL INJ 2mL IVP (12:56)
[2023-01-11] MEDS: midazolam 1 mg/mL INJ 2 mL IVP (13:04)
[2023-01-11] MEDS: fentaNYL 50 mcg/mL INJ 2mL 25 MCG IVP (13:05)
== END 2023-01-11 14:30 | disposition home or self-care (01) ==
PROVIDERS: Radiology Neuroradiology; PCP Family Medicine; Visit Provider Internal Medicine Hematology & Oncology
DX: C78.7 Secondary malignant neoplasm of liver and intrahepatic bile duct (principal); C18.2 Malignant neoplasm of ascending colon
CPT/HCPCS: 47000; 76942; 88307; 88342; 99152; J2250; J3010; J7030

== ENCOUNTER 2023-01-12 15:42 | Emergency (ER) | payer MEDICARE, OTHER, SELFPAY ==
[2023-01-12] VITALS (8 sets, daily range): BP systolic 110–152; BP diastolic 70–103; PULSE 68–94; RESP 16–20; O2SAT 92–99; BMI 21.2
--- NOTE | 2023-01-12 17:05 | ECG_ITS ---
[facility] Test Date: 2023-01-12 Pat Name: Miriam Courtney Department: Room: Gender: Female [employer]or: : 1950 Requested By: Lauren Stein Order Number: [id number] Rima MD: Deshawn Pham M.D. Measurements Intervals [place] Rate: 80 P: 26 WA: 149 QRS: -36 QRSD: 104 T: 50 QT: 392 QTc: 454 Interpretive Statements SINUS RHYTHM WITH OCCASIONAL VENTRICULAR PREMATURE COMPLEXES POSSIBLE LEFT ATRIAL ENLARGEMENT [-0.1mV P-WAVE IN V1/V2] LEFT AXIS DEVIATION [QRS AXIS < -30] PATTERN CONSISTENT WITH PULMONARY DISEASE Compared to ECG 10/25/2021 03:32:32 Left-axis deviation now present Myocardial infarct finding no longer present Electronically Signed On 01-13-2023 14:52:10 CDT by Deshawn Pham M.D. [id number]
[2023-01-12 17:16] LABS: Basophils # 0.1 10^3/uL (0.0-0.1); Basophils % 0.3 %; Eosinophils # 0.2 10^3/uL (0.0-0.8); Eosinophils % 1.3 %; Hematocrit 39.3 % (37.0-47.0); Hemoglobin 12.9 g/dL (11.5-15.3); Lymphocytes # 1.1 10^3/uL (0.8-4.8); Lymphocytes % 6.2 %; Mean Corpuscular HGB Conc 32.8 g/dL (30.0-36.0); Mean Corpuscular Hemoglobin 28.4 pg (28.0-34.0); Mean Corpuscular Volume 86.4 fl (81-99); Mean Platelet Volume 9.3 fL (7.4-10.4); Monocytes # 1.3 10^3/uL (0.2-0.9); Monocytes % 7.2 %; Neutrophils # 14.56 10^3/uL (1.8-7.7); Neutrophils % 84.4 %; Nucleated Red Blood Cells % 0 %; Platelet Count 334 10^3/cmm (130-400); Red Blood Count 4.55 10^6/uL (4.1-5.3); Red Cell Distribution Width 13.6 % (12.1-15.1); White Blood Count 17.3 10^3/uL (4.0-10.0)
[2023-01-12] MEDS: sodium chloride 0.9% 1,000 ML 999 ML IV (17:26)
[2023-01-12 17:32] LABS: Alanine Aminotransferase 76 U/L (0-33); Albumin Level 3.3 g/dL (3.5-5.2); Alkaline Phosphatase 375 U/L (35-105); Ammonia 21 umol/L (11-51); Anion Gap 18.3 (5-19); Aspartate Amino Transferase 72 U/L (0-32); Blood Urea Nitrogen 12 mg/dL (8-23); Calcium 9.4 mg/dL (8.5-10.5); Carbon Dioxide 24 mmol/L (22-29); Chloride 94 mmol/L (98-107); Globulin 3.9 g/dL (1.3-4.6); Glucose 167 mg/dL (65-115); Osmolality Calculated 278 mOsm/kg (285-295); Potassium 4.3 mmol/L (3.5-5.1); Sodium 132 mmol/L (136-145); Total Bilirubin 0.6 mg/dL (0.15-1.2); Total Protein 7.2 g/dL (6.6-8.7)
--- NOTE | 2023-01-12 18:35 | ED_ITS ---
HPI - General Adult General: Chief complaint: General Medical Stated complaint: Low BP, High Pulse Time Seen by Provider: 01/12/23 16:53 History of Present Illness: 72-year-old female with complex medical history including for cancer and bladder cancer. Patient was recently admitted to the hospital with severe DIC. reveals that patient had liver biopsy done yesterday and today patient has been very weak and fatigue. Patient has any fever, chills, nausea, vomiting, diar susanne or bloody stool. No dysuria, hematuria or frequency. Patient complains of abdominal pain around the biopsy site but no major pain. Patient is scheduled to start chemotherapy next week PFSH ED PFSH: Medical History Anemia Bilateral pulmonary embolism Carotid stenosis CVA (cerebral vascular accident) DVT (deep venous thrombosis) Elevated troponin Hyperlipidemia Hypertension NSTEMI (non-ST elevated myocardial infarction) Primary adenocarcinoma of ascending colon Renal infarct Surgical History H/O hemorrhoidectomy (10/15/21) History of colonoscopy History of open reduction and internal fixation (ORIF) procedure right shoulder Status post right hemicolectomy Family History Sister CAD (coronary artery disease) Artery disease [place] at age 65 Social History Smoking and tobacco status: former smoker Quit status (tobacco): has quit using tobacco Year quit tobacco: 2021 Former quit date comment: 1/2 pack per day x 45 years Substance/Drug Use: never Household members: spouse Housing: House Physical Exam Const: COMMON NORMALS: no acute distress, average body habitus, patient oriented x3, no limitations, healthy appearing, alert and well nourished Eye: COMMON NORMALS: Equal, round and reactive pupils present, EOMs intact bilaterally, conjunctivae normal, no scleral icterus, no papilledema, normal visual jurado by confrontation and fundi normal bilaterally CONJUNCTIVA: Yes conjunctivae normal PUPIL: Yes Equal, round and reactive pupils present DIRECT OPHTHALMOSCOPY: Yes no papilledema and Yes fundi normal bilaterally Lymph: LYMPHATIC: no lymphadenopathy noted Resp: COMMON NORMALS: normal respiratory effort, No retractions, No use of accessory muscles, clear to auscultation bilaterally and percussion normal AUSCULTATION: clear to auscultation bilaterally PERCUSSION: percussion normal GI: INSPECTION: No abdominal wall ecchymosis, No Abdominal wall edema, No Anasarca and Yes other (Biopsy site with some dressing. No redness, no drainage or bleeding from t) Extremity: COMMON NORMALS: normal to inspection, full ROM, capillary refill normal, no joint enlargement, no clubbing, cyanosis or edema, no calf tenderness and no pedal edema Neuro: COMMON NORMALS: patient oriented x3 SENSORIUM/ORIENTATION: Yes alert Course ED course: Patient made comfortable emergency room and given IV pain medication. She was given IV fluid. Patient also have leukocytosis without any significant source. Given her history and presenting symptoms I recommend admission but both the patient and declined admission at this time. Patient was told to return to emergency room if symptoms persist or worsen within the next 12 to 24 hours. 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 On the monitor were within normal limits patient was not hypotensive or tachycardic remained afebrile Vital Signs: Vital signs: Vital Signs Pulse Rate 84 01/12/23 19:41 Respiratory Rate 18 01/12/23 19:40 Blood Pressure 147/74 01/12/23 19:41 Pulse Oximetry 98 01/12/23 19:40 Oxygen Delivery Me thod Room Air 01/12/23 15:54 MDM - General Adult Medical Decision Making Patient made comfortable emergency room. She was given IV fluid. Labs was drawn and discussed lab finding with patient and . Patient was recommended given the history of presenting symptoms. Differential Diagnosis Infection, viral syndrome, UTI, lateral abnormalities, encephalopathy Medical Records Discussed patient with the . I reviewed previous medical records including labs and hospital records Lab Data 01/12/23 17:05 01/12/23 17:05 Laboratory Results WBC 17.3 10^3/uL (4.0-10.0) H 01/12/23 17:05 RBC 4.55 10^6/uL (4.1-5.3) 01/12/23 17:05 Hgb 12.9 g/dL (11.5-15.3) 01/12/23 17:05 Hct 39.3 % (37.0-47.0) 01/12/23 17:05 MCV 86.4 fl (81-99) 01/12/23 17:05 MCH 28.4 pg (28.0-34.0) 01/12/23 17:05 MCHC 32.8 g/dL (30.0-36.0) 01/12/23 17:05 RDW 13.6 % (12.1-15.1) 01/12/23 17:05 Plt Count 334 10^3/cmm (130-400) 01/12/23 17:05 MPV 9.3 fL (7.4-10.4) 01/12/23 17:05 Neut % (Auto) 84.4 % 01/12/23 17:05 Lymph % (Auto) 6.2 % 01/12/23 17:05 [place] % (Auto) 7.2 % 01/12/23 17:05 Eos % (Auto) 1.3 % 01/12/23 17:05 Baso % (Auto) 0.3 % 01/12/23 17:05 Neut # (Auto) 14.56 10^3/uL (1.8-7.7) H 01/12/23 17:05 Lymph # (Auto) 1.1 10^3/uL (0.8-4.8) 01/12/23 17:05 [place] # (Auto) 1.3 10^3/uL (0.2-0.9) H 01/12/23 17:05 Eos # (Auto) 0.2 10^3/uL (0.0-0.8) 01/12/23 17:05 Baso # (Auto) 0.1 10^3/uL (0.0-0.1) 01/12/23 17:05 Nucleated RBC % (auto) 0 % 01/12/23 17:05 Nucleated RBCs # 0.0 /100WBC 01/12/23 17:05 Sodium 132 mmol/L (136-145) L 01/12/23 17:05 Potassium 4.3 mmol/L (3.5-5.1) 01/12/23 17:05 Chloride 94 mmol/L (98-107) L 01/12/23 17:05 Carbon Dioxide 24 mmol/L (22-29) 01/12/23 17:05 Anion Gap 18.3 (5-19) 01/12/23 17:05 BUN 12 mg/dL (8-23) 01/12/23 17:05 Creatinine 0.7 mg/dL (0.5-0.9) 01/12/23 17:05 GFR Calculation Not Reportable 01/12/23 17:05 Glucose 167 mg/dL (65-115) H 01/12/23 17:05 Calculated Osmolality 278 mOsm/kg (285-295) L 01/12/23 17:05 Calcium 9.4 mg/dL (8.5-10.5) 01/12/23 17:05 Magnesium 2.0 mg/dL (1.7-2.3) 01/12/23 17:05 Total Bilirubin 0.6 mg/dL (0.15-1.2) 01/12/23 17:05 AST 72 U/L (0-32) H 01/12/23 17:05 ALT 76 U/L (0-33) H 01/12/23 17:05 Alkaline Phosphatase 375 U/L (35-105) H 01/12/23 17:05 Ammonia 21 umol/L (11-51) 01/12/23 17:05 Total Protein 7.2 g/dL (6.6-8.7) 01/12/23 17:05 Albumin 3.3 g/dL (3.5-5.2) L 01/12/23 17:05 Globulin 3.9 g/dL (1.3-4.6) 01/12/23 17:05 Urine Color Yellow (Yellow) 01/12/23 18:44 Urine Appearance Clear (CLEAR) 01/12/23 18:44 Urine pH 6 (5-7) 01/12/23 18:44 Ur Specific [place] 1.010 (1.005-1.030) 01/12/23 18:44 Urine Protein Neg (Negative) 01/12/23 18:44 Urine Glucose (UA) Norm (Normal) 01/12/23 18:44 Urine Ketones Negative (Negative) 01/12/23 18:44 Urine Blood Neg (Negative) 01/12/23 18:44 Urine Nitrate Negative (Negative) 01/12/23 18:44 Urine Bilirubin Neg (Negative) 01/12/23 18:44 Urine Urobilinogen Norm mg/dL (Negative) 01/12/23 18:44 Ur Leukocyte Esterase Negative (Negative) 01/12/23 18:44 Discharge Plan Discharge Patient Disposition: Home Clinical Impression: Weakness generalized, Leukocytosis Condition: Stable Prescriptions: No Action calcium carbonate [Calcium 500] 500 mg calcium (1,250 mg) tablet,chewable 500 mg PO DAILY Eliquis 2.5 mg tablet 2.5 mg PO BID Protonix 40 mg tablet,delayed release (DR/EC) 40 mg PO DAILY Qty: 90 2RF atorvastatin 40 mg tablet 40 mg PO BEDTIME Qty: 90 3RF aspirin 81 mg Tablet,Delayed Release (Dr/Ec) 81 mg PO DAILY 30 Days Qty: 30 3RF ascorbic acid (vitamin C) [Vitamin C] 500 mg Tablet 500 mg PO DAILY cyanocobalamin (vitamin B-12) [Vitamin B-12] 2,000 mcg Tablet Extended Release 5,000 mcg PO DAILY ferrous sulfate 325 mg (65 mg iron) Capsule, Extended Release 325 mg PO DAILY cholecalciferol (vitamin D3) [Vitamin D3] 25 mcg (1,000 unit) Capsule 25 mcg PO DAILY ewdvedgh-vgm-GU-lycopen-lutein 0.4 mg-300 mcg- 250 mcg Tablet 1 tab PO DAILY Glucosamine Chondroitin 550-30-1 mg Capsule 1 cap PO DAILY iaafkxt-dqld-xoimi-oreg-capryl 100 mg-150 mg- 50 mg-150 mg Capsule 1 cap PO DAILY Discharge Orders: Discharge ED (Routine); Ordered 01/12/23 Ordered By: Lauren Mi Referrals: Alexus Flowers DO [Primary Care Provider] - Discharge Diet: Advance as tolerated Discharge Activity: Resume usual activity Patient Instructions: Opioid Safety, Pain Management Coding Level of Care Code ED Sales Support Representative for Jasson Pastrana
[2023-01-12 19:15] LABS: Add Urine Microscopic? NO; Charge for UA Resulting for Rev
[2023-01-12 19:23] LABS: Bilirubin Urine Neg (Negative); Blood Urine Neg (Negative); Glucose Urine UA Norm (Normal); Ketones Urine Negative (Negative); Leukocyte Esterase Urine Negative (Negative); Nitrate Urine Negative (Negative); Protein Urine Neg (Negative); Urine Appearance Clear (CLEAR); Urine Color Yellow (Yellow); Urobilinogen Urine Norm (Negative); pH Urine 6 (5-7)
[2023-01-12] MEDS: HYDROmorphone 1 mg/mL INJ 1 mL 0.5 MG IVP (19:40)
== END 2023-01-12 21:19 | disposition home or self-care (01) ==
PROVIDERS: Emergency Provider Family Medicine; PCP Family Medicine
DX: R53.1 Weakness (principal); D72.829 Elevated white blood cell count, unspecified; E78.5 Hyperlipidemia, unspecified; I10 Essential (primary) hypertension; I25.2 Old myocardial infarction; Z79.01 Long term (current) use of anticoagulants; Z79.82 Long term (current) use of aspirin; Z79.899 Other long term (current) drug therapy; Z86.711 Personal history of pulmonary embolism; Z86.718 Personal history of other venous thrombosis and embolism; Z87.891 Personal history of nicotine dependence; Z86.73 Personal history of transient ischemic attack (TIA), and cerebral infarction without residual deficits
CPT/HCPCS: 80053; 81003; 82140; 83735; 85025; 93005; 96374; 99284; J1170; J7030

== ENCOUNTER 2023-01-18 12:18 | Oncology outpatient (recurring) (ONCR) | payer MEDICARE, OTHER, SELFPAY ==
[2023-01-18 12:34] VITALS: BP 115/62; PULSE 94; RESP 18; TEMP 36.4; O2SAT 96
[2023-01-18 13:32] LABS: Basophils # 0.1 10^3/uL (0.0-0.1); Basophils % 0.2 %; Eosinophils % 0.1 %; Hematocrit 32.3 % (37.0-47.0); Hemoglobin 10.5 g/dL (11.5-15.3); Lymphocytes # 0.9 10^3/uL (0.8-4.8); Lymphocytes % 3.5 %; Mean Corpuscular HGB Conc 32.5 g/dL (30.0-36.0); Mean Corpuscular Volume 86.1 fl (81-99); Mean Platelet Volume 9.7 fL (7.4-10.4); Monocytes # 1.5 10^3/uL (0.2-0.9); Monocytes % 5.7 %; Neutrophils # 23.37 10^3/uL (1.8-7.7); Neutrophils % 88.8 %; Nucleated Red Blood Cells % 0 %; Platelet Count 394 10^3/cmm (130-400); Red Blood Count 3.75 10^6/uL (4.1-5.3); Red Cell Distribution Width 14.5 % (12.1-15.1); White Blood Count 26.3 10^3/uL (4.0-10.0)
[2023-01-18 13:46] LABS: Alanine Aminotransferase 56 U/L (0-33); Albumin Level 2.6 g/dL (3.5-5.2); Alkaline Phosphatase 422 U/L (35-105); Aspartate Amino Transferase 72 U/L (0-32); Blood Urea Nitrogen 14 mg/dL (8-23); Calcium 8.5 mg/dL (8.5-10.5); Carbon Dioxide 24 mmol/L (22-29); Chloride 93 mmol/L (98-107); Creatinine Clr Calc Pharmacy 66.3223; Globulin 3.7 g/dL (1.3-4.6); Glucose 184 mg/dL (65-115); Osmolality Calculated 275 mOsm/kg (285-295); Sodium 130 mmol/L (136-145); Total Protein 6.3 g/dL (6.6-8.7)
[2023-01-18 13:52] LABS: Anion Gap 16.4 (5-19); Potassium 3.4 mmol/L (3.5-5.1)
[2023-01-18 14:10] LABS: Cancer Antigen 19 9 4801 U/mL (0-35)
== END 2023-01-31 23:59 | disposition home or self-care (01) ==
PROVIDERS: PCP Family Medicine; Visit Provider Internal Medicine Hematology & Oncology
DX: C67.8 Malignant neoplasm of overlapping sites of bladder; N13.30 Unspecified hydronephrosis; K59.00 Constipation, unspecified; Z85.038 Personal history of other malignant neoplasm of large intestine; Z92.21 Personal history of antineoplastic chemotherapy; Z90.49 Acquired absence of other specified parts of digestive tract; Z87.891 Personal history of nicotine dependence
CPT/HCPCS: 36415; 80053; 85025; 86301; 99214

== ENCOUNTER 2023-01-19 14:28 | Inpatient (IN) | payer MEDICARE, OTHER, SELFPAY ==
[2023-01-19] VITALS (7 sets, daily range): BP systolic 135–175; BP diastolic 81–109; PULSE 63–121; RESP 16–20; TEMP 36.6–36.7; O2SAT 94–99; BMI 22.8
--- NOTE | 2023-01-19 15:10 | ED_ITS ---
HPI - General Adult General: Chief complaint: General Medical Stated complaint: sent by Richards/cancer pt Time Seen by Provider: 01/19/23 15:02 Source: patient Mode of arrival: ambulatory History of Present Illness: 72-year-old female presents emergency room complaining of generally not feeling well. Patient has a known history of adeno CA of the ascending colon diagnosed at stage IIa. She also has a history of bladder CA which was treated locally with cystoscopy and primary excision. She has recently at a hospital in [facility] and discharged with feels like she is getting worse. She had a not been feeling well PET scan was done there were liver lesions that was biopsied they are pending the final is on them but it looks like an adeno CA possibly either from bladder or even potentially pancreatic which would be a new primary cancer for her. She was seen yesterday in oncology clinic concerned about abdominal pain and cramping was advised him his milk of magnesia feels like things have gotten where she had the liquid stool this morning and nothing since she has been very nauseated having worsening abdominal pain with cramping and bloating. Onset (ago): day(s) Location: abdomen Severity: moderate Quality: aching Pain Consistency: constant Relieving factors: none Exacerbating factors: none Associated symptoms: Reports nausea; Deny chest pain, confusion, cough, diaphoresis, decreased appetite, dyspnea, fevers/chills, headache(s), malaise, rash, palpitations, seizures, short of breath, syncope, vomiting or weakness Treatments prior to arrival: none Review of Systems Const: Denies: fever(s), chills, malaise or diaphoresis ENMT: Denies: throat pain, ear or mastoid pain, nasal discharge or nasal congestion Card: Denies: chest pain, palpitations or syncope Resp: Denies: dyspnea GI: Reports: abdominal pain, nausea, bloating and GI cramping; Denies: vomiting : Denies: flank pain, difficulty voiding, dysuria, urinary frequency or urinary urgency Skin/Breast: Denies: rash Neuro: Denies: headache(s) or confusion PFS ED PFSH: Medical History Anemia Bilateral pulmonary embolism Carotid stenosis CVA (cerebral vascular accident) DVT (deep venous thrombosis) Elevated troponin Hyperlipidemia Hypertension NSTEMI (non-ST elevated myocardial infarction) Primary adenocarcinoma of ascending colon Renal infarct Surgical History H/O hemorrhoidectomy (10/15/21) History of colonoscopy History of open reduction and internal fixation (ORIF) procedure right shoulder Status post right hemicolectomy Family History Sister CAD (coronary artery disease) Artery disease [place] at age 65 Social History Smoking and tobacco status: former smoker Quit status (tobacco): has quit using tobacco Year quit tobacco: 2021 Former quit date comment: 1/2 pack per day x 45 years Substance/Drug Use: never Household members: spouse Housing: House Physical Exam Const: COMMON NORMALS: no acute distress GENERAL APPEARANCE: cooperative and comfortable ORIENTATION/CONSCIOUSNESS: Yes awake, Yes oriented to person, Yes oriented to place and Yes oriented to time HENMT: COMMON NORMALS: normocephalic, atraumatic and hearing grossly normal bilaterally HEAD & SCALP: normocephalic and atraumatic Resp: COMMON NORMALS: normal respiratory effort, No retractions, No use of accessory muscles and clear to auscultation bilaterally AUSCULTATION: clear to auscultation bilaterally Cardio: COMMON NORMALS: regular rate, regular rhythm and No murmurs present (Cardio) RATE: regular rate RHYTHM: regular rhythm GI: COMMON NORMALS: No hepatosplenomegaly present INSPECTION: Yes abdominal distension AUSCULTATION: Yes Hypoactive bowel sounds present and Yes High- pitched bowel sounds present PALPATION: Yes Tenderness to palpation present (GI), No Guarding due to palpation present (GI) and Yes No hepatosplenomegaly present PERCUSSION: tympanic to percussion Extremity: COMMON NORMALS: normal to inspection, capillary refill normal, no clubbing, cyanosis or edema, no calf tenderness and no pedal edema Neuro: SENSORIUM/ORIENTATION: Yes oriented to person, Yes oriented to place and Yes oriented to time Skin: COMMON NORMALS: no rashes or lesions noted GENERAL SKIN EXAM: no rashes or lesions noted Course Vital Signs: Vital signs: Vital Signs Temperature 97.1 F L 01/21/23 11:39 Pulse Rate 121 H 01/21/23 11:39 Respiratory Rate 34 H 01/21/23 11:39 Blood Pressure 117/82 01/21/23 11:39 Pulse Oximetry 98 01/21/23 11:39 Oxygen Delivery Me thod Nasal Cannula 01/21/23 08:00 Oxygen Flow Rate 3 01/21/23 08:00 MDM - General Adult Medical Decision Making Patient has had multiple cancers. She had a primary bladder cancer which was treated a primary colon cancer which was also treated surgically. Now she has a liver mass which was recently biopsied the results are pending Dr. Richards was concerned this may be from a third primary tumor of the pancreas. There is also possibility being from the bladder further studies are pending. She has significant leukocytosis she was seen in [place] they ruled out liver being the source of infection and discharged her. Discussed with Dr. Richards will admit for culture results started on antibiotics until the cultures are resulted. She is currently on apixaban she has had known previous DVT and PE. Discussed with patient family discussed with hospitalist orders have been written Medical Records I reviewed the patient's medical records. Lab Data I reviewed the patient's lab results. 01/21/23 04:55 01/21/23 04:55 Radiology Impressions Abdomen/Pelvis CT 01/19/23 15:30 IMPRESSION: 1. Multiple metastatic foci throughout the liver, somewhat increased in size compared to prior exam, now measuring up to 14 cm in the right hepatic lobe. 2. Infrarenal fusiform abdominal aortic aneurysm measuring 4.2 cm. 3. Bilateral punctate nonobstructing renal calyceal stones. 4. Left kidney cyst with internal septa, overall measuring up to 3.2 cm, similar to prior exam. Finding appears to reflect a Bosniak [address] without and with contrast or MR without and with contrast at 6 months and 12 months, then yearly for 5 years. 5. Scattered periaortic prominent lymph nodes measuring up to 12 mm, somewhat similar to prior exam, may reflect metastatic disease. 6. Left ureteral stent in place. 7. Emphysematous changes. 8. Coronary artery atherosclerotic calcifications. 9. Cardiomegaly. 10. 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 COMMENTS: Consistent with the [employer]'s Incidental Findings Committee white paper (J Am Tiffany Radiol 2018): Any incidental renal lesion less than 1 cm or classified as too small to characterize, or any incidental cystic renal lesion characterized as simple-appearing, is likely benign. No follow-up imaging is recommended for these lesions per consensus recommendations based on imaging criteria. Chest X-Ray 01/20/23 08:15 IMPRESSION: 1. Diffuse interstitial reticular nodular infiltrates throughout both lungs. This may represent interstitial pneumonia or interstitial pulmonary edema. Chest CTA 01/20/23 09:33 IMPRESSION: 1. Study is compromised by breathing motion artifact. 2. No central pulmonary embolism. 3. No RIGHT heart strain. 4. Patient has known metastatic disease to the liver. 5. Mildly enlarged LEFT subpectoralis and axillary lymph nodes. Metastatic versus reactive. 6. No pneumonia. 7. Mild pulmonary edema suspected. 8. Small bilateral pleural effusions. Soft Tissue Ultrasound 01/20/23 17:04 IMPRESSION: Soft tissue edema but no mass. Laboratory Results WBC 30.1 10^3/uL (4.0-10.0) H 01/19/23 15:40 RBC 3.77 10^6/uL (4.1-5.3) L 01/19/23 15:40 Hgb 10.8 g/dL (11.5-15.3) L 01/19/23 15:40 Hct 32.1 % (37.0-47.0) L 01/19/23 15:40 MCV 85.1 fl (81-99) 01/19/23 15:40 MCH 28.6 pg (28.0-34.0) 01/19/23 15:40 MCHC 33.6 g/dL (30.0-36.0) 01/19/23 15:40 RDW 14.5 % (12.1-15.1) 01/19/23 15:40 Plt Count 347 10^3/cmm (130-400) 01/19/23 15:40 MPV 9.4 fL (7.4-10.4) 01/19/23 15:40 Neut % (Auto) 86.6 % 01/19/23 15:40 Lymph % (Auto) 4.2 % 01/19/23 15:40 [place] % (Auto) 7.1 % 01/19/23 15:40 Eos % (Auto) 0.3 % 01/19/23 15:40 Baso % (Auto) 0.3 % 01/19/23 15:40 Neut # (Auto) 26.03 10^3/uL (1.8-7.7) H 01/19/23 15:40 Lymph # (Auto) 1.3 10^3/uL (0.8-4.8) 01/19/23 15:40 [place] # (Auto) 2.1 10^3/uL (0.2-0.9) H 01/19/23 15:40 Eos # (Auto) 0.1 10^3/uL (0.0-0.8) 01/19/23 15:40 Baso # (Auto) 0.1 10^3/uL (0.0-0.1) 01/19/23 15:40 Nucleated RBC % (auto) 0 % 01/19/23 15:40 Nucleated RBCs # 0.0 /100WBC 01/19/23 15:40 PT 17.50 SECONDS (12.1-14.9) H 01/19/23 17:20 INR 1.39 (0.8-1.2) H 01/19/23 17:20 APTT 25.2 SECONDS (23.9-36.7) 01/19/23 17:20 Sodium 133 mmol/L (136-145) L 01/19/23 15:40 Potassium 3.6 mmol/L (3.5-5.1) 01/19/23 15:40 Chloride 95 mmol/L (98-107) L 01/19/23 15:40 Carbon Dioxide 26 mmol/L (22-29) 01/19/23 15:40 Anion Gap 15.6 (5-19) 01/19/23 15:40 BUN 14 mg/dL (8-23) 01/19/23 15:40 Creatinine 0.5 mg/dL (0.5-0.9) 01/19/23 15:40 GFR Calculation Not Reportable 01/19/23 15:40 Glucose 117 mg/dL (65-115) H 01/19/23 15:40 Calculated Osmolality 278 mOsm/kg (285-295) L 01/19/23 15:40 Lactic Acid 2.4 mmol/L (0.5-2.2) H 01/19/23 16:41 Calcium 8.6 mg/dL (8.5-10.5) 01/19/23 15:40 Total Bilirubin 0.8 mg/dL (0.15-1.2) 01/19/23 15:40 AST 93 U/L (0-32) H 01/19/23 15:40 ALT 67 U/L (0-33) H 01/19/23 15:40 Alkaline Phosphatase 492 U/L (35-105) H 01/19/23 15:40 Ammonia Cancelled 01/19/23 17:20 Total Protein 6.0 g/dL (6.6-8.7) L 01/19/23 15:40 Albumin 2.9 g/dL (3.5-5.2) L 01/19/23 15:40 Globulin 3.1 g/dL (1.3-4.6) 01/19/23 15:40 Lipase 26 U/L (13-60) 01/19/23 15:40 Urine Color Yellow (Yellow) 01/19/23 18:21 Urine Appearance Hazy (CLEAR) A 01/19/23 18:21 Urine pH 7 (5-7) 01/19/23 18:21 Ur Specific [place] 1.000 (1.005-1.030) L 01/19/23 18:21 Urine Protein 1+ (Negative) H 01/19/23 18:21 Urine Glucose (UA) Norm (Normal) 01/19/23 18:21 Urine Ketones Negative (Negative) 01/19/23 18:21 Urine Blood 3+ (Negative) H 01/19/23 18:21 Urine Nitrate Negative (Negative) 01/19/23 18:21 Urine Bilirubin Neg (Negative) 01/19/23 18:21 Urine Urobilinogen 1 mg/dL (Negative) H 01/19/23 18:21 Ur Leukocyte Esterase Negative (Negative) 01/19/23 18:21 Urine RBC 50-80 /hpf (0-2) H 01/19/23 18:21 Urine WBC 5-10 /hpf (0-5) H 01/19/23 18:21 Ur Squamous Epith Cells 0-4 /hpf (0-5) H 01/19/23 18:21 Amorphous Sediment Not Reportable 01/19/23 18:21 Urine Bacteria Trace /hpf (NONE) 01/19/23 18:21 Urine Yeast 1+ /hpf H 01/19/23 18:21 Discharge Plan Discharge Patient Disposition: Admitted As Inpatient Admit Provider: Rashel Dumont Clinical Impression: Liver mass, Bilateral pulmonary embolism, Primary adenocarcinoma of ascending colon, Primary bladder transitional cell carcinoma, Constipation, DVT (deep venous thrombosis), Leukocytosis Condition: Stable Coding Level of Care Code ED Chairman & Ceo for Jasson Pastrana
--- NOTE | 2023-01-19 15:30 | CTR_ITS ---
PROCEDURE INFORMATION: Exam: CT Abdomen And Pelvis With Contrast Exam date and time: 01/19/2023 4:18 PM Age: 72 years old Clinical indication: Abdominal pain; Generalized; Prior surgery; Surgery date: 6+ months; Surgery type: Colon appy; Patient HX: HX of colon cancer; Additional info: Abd pain TECHNIQUE: Imaging protocol: Computed tomography of the abdomen and pelvis with contrast. Radiation optimization: All CT scans at this facility use at least one of these dose optimization techniques: automated exposure control; mA and/or kV adjustment per patient size (includes targeted exams where dose is matched to clinical indication); or iterative reconstruction. Contrast material: OMNI 350; Contrast volume: 100 ml; Contrast route: INTRAVENOUS (IV); REPORTING DATA: Count of CT and Cardiac NM exams in prior 12 months: This patient has received 3 known CTs and 0 known cardiac nuclear medicine studies in the 12 months prior to the current study. COMPARISON: PT PET [facility] INITIAL [id number] 12/11/2022 10:20 AM RADIATION DOSE METRICS: Total DLP (mGy-cm): 621.36 FINDINGS: Lungs: Emphysematous changes. Heart: Cardiomegaly. Coronary arteries: Coronary artery atherosclerotic calcifications. Liver: Multiple metastatic foci throughout the liver, somewhat increased in size compared to prior exam, now measuring up to 14 cm in the right hepatic lobe. Gallbladder and bile ducts: Normal. No calcified stones. No ductal dilation. Pancreas: Normal. No ductal dilation. Spleen: Normal. No splenomegaly. Adrenal glands: Normal. No mass. Kidneys and ureters: Bilateral punctate nonobstructing renal calyceal stones. Left kidney cyst with internal septa, overall measuring up to 3.2 cm, similar to prior exam. Left ureteral stent in place. Left kidney interpolar region subcentimeter low-density area may reflect a cyst. Stomach and bowel: Unremarkable. No obstruction. No mucosal thickening. Appendix: No evidence of appendicitis. Intraperitoneal space: Unremarkable. No free air. No significant fluid collection. Vasculature: Infrarenal fusiform abdominal aortic aneurysm measuring 4.2 cm. Lymph nodes: Scattered periaortic prominent lymph nodes measuring up to 12 mm, somewhat similar to prior exam, may reflect metastatic disease. Urinary bladder: Unremarkable as visualized. 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 Bones/joints: Unremarkable. No acute fracture. Soft tissues: Unremarkable. CT/CT abdomen pelvis w con* [id number] IMPRESSION: 1. Multiple metastatic foci throughout the liver, somewhat increased in size compared to prior exam, now measuring up to 14 cm in the right hepatic lobe. 2. Infrarenal fusiform abdominal aortic aneurysm measuring 4.2 cm. 3. Bilateral punctate nonobstructing renal calyceal stones. 4. Left kidney cyst with internal septa, overall measuring up to 3.2 cm, similar to prior exam. Finding appears to reflect a Bosniak [address] without and with contrast or MR without and with contrast at 6 months and 12 months, then yearly for 5 years. 5. Scattered periaortic prominent lymph nodes measuring up to 12 mm, somewhat similar to prior exam, may reflect metastatic disease. 6. Left ureteral stent in place. 7. Emphysematous changes. 8. Coronary artery atherosclerotic calcifications. 9. Cardiomegaly. 10. 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 COMMENTS: Consistent with the [employer]'s Incidental Findings Committee white paper (J Am Tiffany Radiol 2018): Any incidental renal lesion less than 1 cm or classified as too small to characterize, or any incidental cystic renal lesion characterized as simple-appearing, is likely benign. No follow-up imaging is recommended for these lesions per consensus recommendations based on imaging criteria.
[2023-01-19] MEDS: sodium chloride 0.9% 1,000 ML 999 ML IV (15:37)
[2023-01-19 15:53] LABS: Basophils # 0.1 10^3/uL (0.0-0.1); Basophils % 0.3 %; Eosinophils # 0.1 10^3/uL (0.0-0.8); Eosinophils % 0.3 %; Hematocrit 32.1 % (37.0-47.0); Hemoglobin 10.8 g/dL (11.5-15.3); Lymphocytes # 1.3 10^3/uL (0.8-4.8); Lymphocytes % 4.2 %; Mean Corpuscular HGB Conc 33.6 g/dL (30.0-36.0); Mean Corpuscular Hemoglobin 28.6 pg (28.0-34.0); Mean Corpuscular Volume 85.1 fl (81-99); Mean Platelet Volume 9.4 fL (7.4-10.4); Monocytes # 2.1 10^3/uL (0.2-0.9); Monocytes % 7.1 %; Neutrophils # 26.03 10^3/uL (1.8-7.7); Neutrophils % 86.6 %; Nucleated Red Blood Cells % 0 %; Platelet Count 347 10^3/cmm (130-400); Red Blood Count 3.77 10^6/uL (4.1-5.3); Red Cell Distribution Width 14.5 % (12.1-15.1)
[2023-01-19 16:02] LABS: White Blood Count 30.1 10^3/uL (4.0-10.0)
[2023-01-19 16:15] LABS: Alanine Aminotransferase 67 U/L (0-33); Albumin Level 2.9 g/dL (3.5-5.2); Alkaline Phosphatase 492 U/L (35-105); Anion Gap 15.6 (5-19); Aspartate Amino Transferase 93 U/L (0-32); Blood Urea Nitrogen 14 mg/dL (8-23); Calcium 8.6 mg/dL (8.5-10.5); Carbon Dioxide 26 mmol/L (22-29); Chloride 95 mmol/L (98-107); Creatinine Clr Calc Pharmacy 63.8484; Globulin 3.1 g/dL (1.3-4.6); Glucose 117 mg/dL (65-115); Osmolality Calculated 278 mOsm/kg (285-295); Potassium 3.6 mmol/L (3.5-5.1); Sodium 133 mmol/L (136-145); Total Bilirubin 0.8 mg/dL (0.15-1.2)
[2023-01-19 16:33] LABS: Lipase 26 U/L (13-60)
[2023-01-19 17:14] LABS: Lactic Sepsis W/Reflex 2.4 mmol/L (0.5-2.2)
[2023-01-19 17:45] LABS: INR 1.39 (0.8-1.2); Partial Thromboplastin Time 25.2 SECONDS (23.9-36.7)
[2023-01-19] MEDS: meropenem 1,000 MG in sodium chloride 0.9% (plus) 50 ML 100 MG IV (18:04)
[2023-01-19 18:39] LABS: Reflex Lactate Order REFLEX LACTIC ORDERD
[2023-01-19 19:04] LABS: Add Urine Culture? Yes; Add Urine Microscopic? YES; Bacteria Urine TRACE /hpf; Bilirubin Urine Neg (Negative); Blood Urine 3+ (Negative); Glucose Urine UA Norm (Normal); Ketones Urine Negative (Negative); Leukocyte Esterase Urine Negative (Negative); Nitrate Urine Negative (Negative); Protein Urine 1+ (Negative); RBC Urine 50-80 /hpf (0-2); Squamous Epithelial Cell Urine 0-4 /hpf (0-5); Urine Appearance Hazy (CLEAR); Urine Color Yellow (Yellow); Urobilinogen Urine 1 mg/dL (Negative); pH Urine 7 (5-7)
[2023-01-19 19:26] LABS: Ammonia 43 umol/L (11-51)
[2023-01-19 19:39] LABS: Lactic Acid level (Lactate) 3.7 mmol/L (0.5-2.2)
--- NOTE | 2023-01-19 19:45 | P.HP_ITS ---
Providers/Chief Complaint Admitting Physician: Rashel Dumont MD Primary Care Provider: Alexus Flowers DO Chief Complaint: sent by Richards/cancer pt History of Present Illness Miriam Courtney is a 72 year old female with past medical history significant for extensive malignancy which includes CA bladder, CA:colon, currently CT abdomen and pelvis is showing Multiple metastatic foci throughout the liver, somewhat increased in size compared to prior exam, [facility] Came in today after she was not feeling well overall after the discharge, today in the ER she is complaining of generalized weakness, overall not feeling well ,bilateral lower extremity swelling, denied any fever, chest pain, any significant abdominal pain. Pertinent labs: Includes: WBC:30.1, H&H 10 and 32,plt : 347 , serum sodium 133, serum potassium:3.6 , BUN 14 serum creatinine 0.5, lactic acid :2.4, repeat lactic acid 3.7, total bilirubin 0.8, AST 93, ALT 67, ALP 492, total protein 6, albumin 2.9, urinalysis result reviewed. Pertinent imaging studies: CT abdomen and pelvis with contrast: Multiple metastatic foci throughout the liver, somewhat increased in size compared to prior exam, now measuring up to 14 cm in the right hepatic lobe. She was started on broad-spectrum antibiotics after obtaining cultures as well as on IV fluids. Review of Systems General: Reports: 10 or more systems reviewed and unremarkable except in HPI and below Const: Denies: fever(s), chills, body aches or diaphoresis Card: Reports: swelling of feet/ankles; Denies: palpitations, edema, dyspnea on exertion, orthopnea or leg pain with exertion Resp: Denies: dyspnea, productive cough, wheezing or pain on inspiration GI: Reports: constipation; Denies: nausea, vomiting or diarrhea : Denies: flank pain Musc: Denies: back pain, extremity pain or extremity swelling Neuro: Denies: headache(s) or confusion Medications/Allergies Home Medications Medication Instructions Recorded Confirmed Last Taken Type aspirin 81 mg tablet,delayed 81 mg PO DAILY 30 days #30 tabs 10/27/21 01/19/23 01/19/23 Rx release ascorbic acid (vitamin C) 500 mg 500 mg PO DAILY 12/10/21 01/19/23 01/19/23 History tablet (Vitamin C) cholecalciferol (vitamin D3) 25 25 mcg PO DAILY 12/10/21 01/19/23 01/19/23 Hist ory mcg (1,000 unit) capsule (Vitamin D3) cyanocobalamin (vitamin B-12) 5,000 mcg PO DAILY 12/10/21 01/19/23 01/19/23 History 2,000 mcg tablet,extended release (Vitamin B-12 ER) glucosamine sulf dipot 1 cap PO DAILY 12/10/21 01/19/23 01/19/23 History chlr,msm,chond 550 mg-C 30 mg-alex 1 mg capsule (Glucosamine Chondroitin) ookpswdj-rbj-nngum acid 0.4 1 tab PO DAILY 12/10/21 01/19/23 01/19/23 History mg-lycopene 300 mcg-lutein 250 mcg tablet tumeric 100 mg-ag 150 mg-olive 1 cap PO DAILY 12/10/21 01/19/23 01/19/23 History 50 mg-oreg 150 mg-caprylate capsule calcium carbonate 500 mg calcium 500 mg PO DAILY 09/06/22 01/19/23 01/19/23 History (1,250 mg) chewable tablet (Calcium 500) pantoprazole 40 mg tablet,delayed 40 mg PO DAILY #90 tabs 10/18/22 01/19/23 01/19/23 Rx release (Protonix) apixaban 2.5 mg tablet (Eliquis) 2.5 mg PO BID 11/22/22 01/19/23 01/19/23 History atorvastatin 40 mg tablet 40 mg PO BEDTIME #90 tabs 12/02/22 01/19/23 01/18/23 Rx oxycodone 10 mg tablet 10 mg PO QID PRN Pain 01/18/23 01/19/23 Unknown History potassium chloride 20 mEq 20 meq PO DAILY 3 days #30 tabs 01/18/23 01/19/23 Unknown Rx tablet,extended release ferrous sulfate 325 mg (65 mg 325 mg PO DAILY 01/19/23 01/19/23 01/19/23 History iron) tablet (Iron (ferrous sulfate)) Allergies Allergy/AdvReac Type Severity Reaction Status Date / Time shellfish derived Allergy Unknown Unknown Verified 01/19/23 15:38 Penicillins Allergy Unknown Verified 01/19/23 15:38 PFSH Acute PFSH: Medical History Anemia Bilateral pulmonary embolism Carotid stenosis CVA (cerebral vascular accident) DVT (deep venous thrombosis) Elevated troponin Hyperlipidemia Hypertension NSTEMI (non-ST elevated myocardial infarction) Primary adenocarcinoma of ascending colon Renal infarct Surgical History H/O hemorrhoidectomy (10/15/21) History of colonoscopy History of open reduction and internal fixation (ORIF) procedure right shoulder Status post right hemicolectomy Family History Sister CAD (coronary artery disease) Artery disease NE at age 65 Social History Smoking and tobacco status: former smoker Quit status (tobacco): has quit using tobacco Year quit tobacco: 2021 Former quit date comment: 1/2 pack per day x 45 years Substance/Drug Use: never Household members: spouse Housing: House Vitals/I&O/Wt Last Vital Signs Temp 97.9 F 01/19/23 14:46 Pulse 121 H 01/19/23 19:00 Resp 16 01/19/23 14:46 BP 175/88 01/19/23 19:00 Pulse Ox 95 01/19/23 19:00 O2 Del Method Room Air 01/19/23 19:00 01/19/23 01/19/23 01/19/23 06:59 14:59 22:59 Intake Total 1000 / 1000 Balance 1000 / 1000 Weight last 48 hrs Weight 68.039 kg Physical Exam Const: COMMON NORMALS: patient oriented x3 HENMT: COMMON NORMALS: normocephalic and atraumatic HEAD & SCALP: normocephalic and atraumatic Resp: COMMON NORMALS: clear to auscultation bilaterally AUSCULTATION: clear to auscultation bilaterally Cardio: COMMON NORMALS: regular rate, regular rhythm, S1 normal heart sound present, S2 normal heart sound present, No gallops present (Cardio), No murmurs present (Cardio), No rub (Cardio) and Peripheral pulses 2+ throughout RATE: regular rate RHYTHM: regular rhythm HEART SOUNDS: S1 normal heart sound present and S2 normal heart sound present PERIPHERAL PULSES: Peripheral pulses 2+ throughout GI: COMMON NORMALS: Soft to palpation and non-tender AUSCULTATION: Yes normoactive bowel sounds RECTAL EXAM: deferred OTHER: Distended abdomen, with normal bowel sounds Extremity: NARRATIVE EXTREMITY EXAM: 1-2+ bilateral lower extremity pitting Neuro: COMMON NORMALS: patient oriented x3 Data 01/19/23 15:40 01/20/23 08:30 Micro: Microbiology 01/19/23 16:47 Blood Culture - Preliminary Blood SPECIMEN COLLECTED 01/19/23 16:41 Blood Culture - Preliminary Blood SPECIMEN COLLECTED A&P Assessment and plan (1) Primary bladder transitional cell carcinoma: (2) Primary adenocarcinoma of ascending colon: (3) Hypertension: (4) DVT (deep venous thrombosis): (5) Bilateral pulmonary embolism: (6) CVA (cerebral vascular accident): (7) Elevated lactic acid level: Plan 2 year old female with past medical history significant for extensive malignancy which includes CA bladder, CA:colon, currently CT abdomen and pelvis is showing Multiple metastatic foci throughout the liver, somewhat increased in size compared to prior exam, was recently discharged from a hospital in [facility] Came in today after she was not feeling well overall after the discharge, today in the ER she is complaining of generalized weakness, overall not feeling well ,bilateral lower extremity swelling, Assessment: Generalized weakness: Significant leukocytosis Elevated lactic acid History of Ca bladder History of colon cancer History of DVT History of pulmonary embolism History of CVA Constipation Plan: Follow blood culture, urine culture X-ray chest Currently she is empirically on broad-spectrum antibiotics vancomycin and meropenem Continue IV hydration Continue Eliquis Monitor CBC, obtain peripheral blood smear Oncology on board CODE STATUS: Full code DVT prophylaxis: On Eliquis Attestations Medical Necessity Statement*: Needs to be in hospital for management of generalized weakness significant leukocytosis. Anticipated length of stay: Greater than 2 midnights Coding Level of Care Code Acute Code for Chg Fwd Diagnoses Primary bladder transitional cell carcinoma C67.9 Primary adenocarcinoma of ascending colon C18.2 Hypertension I10 DVT (deep venous thrombosis) I82.409 Bilateral pulmonary embolism I26.99 CVA (cerebral vascular accident) I63.9 Elevated lactic acid level R79.89
[2023-01-19] MEDS: D5-NS 0.45% + KCL 20 mEq 20 MEQ/1,000 ML BAG 125 MEQ IV (20:41)
[2023-01-19] MEDS: atorvastatin 40 mg Tablet PO (20:42)
[2023-01-19] MEDS: vancomycin 1,250 MG/250 ML PIGGYBACK 250 MG IV (20:42)
[2023-01-20] VITALS (10 sets, daily range): BP systolic 109–172; BP diastolic 66–92; PULSE 70–117; RESP 15–24; TEMP 36.4–38.2; O2SAT 94–97
[2023-01-20] MEDS: meropenem 1,000 MG in sodium chloride 0.9% (plus) 50 ML 100 MG IV ×3 (01:12→17:35)
[2023-01-20] MEDS: D5-NS 0.45% + KCL 20 mEq 20 MEQ/1,000 ML BAG 125 MEQ IV (04:44)
--- NOTE | 2023-01-20 08:15 | XR_ITS ---
WS: [id number] Exam: XR chest 1V portable [id number] Date/Time of Exam: 01/20/2023 8:22 AM Reason For Exam: cough Comparison 04/02/2022. Diffuse interstitial reticular nodular infiltrates noted. Prominent septal lines in the lateral lung zones. Heart size upper limits normal. The mediastinum is normal in contour. No pleural effusions or pneumothorax. Bony structures are intact. Old healed proximal right humeral fracture with hardware. XR/XR chest 1V portable [id number] IMPRESSION: 1. Diffuse interstitial reticular nodular infiltrates throughout both lungs. Th is may represent interstitial pneumonia or interstitial pulmonary edema.
[2023-01-20] MEDS: vancomycin 1,250 MG/250 ML PIGGYBACK 250 MG IV ×2 (08:37→19:43)
[2023-01-20 08:40] LABS: Basophils # 0.2 10^3/uL (0.0-0.1); Basophils % 0.5 %; Eosinophils # 0.9 10^3/uL (0.0-0.8); Eosinophils % 2.4 %; Hematocrit 35.8 % (37.0-47.0); Hemoglobin 11.1 g/dL (11.5-15.3); Lymphocytes # 1.2 10^3/uL (0.8-4.8); Lymphocytes % 3.1 %; Mean Corpuscular Hemoglobin 28.5 pg (28.0-34.0); Mean Platelet Volume 9.5 fL (7.4-10.4); Monocytes % 5.4 %; Neutrophils # 32.01 10^3/uL (1.8-7.7); Neutrophils % 86.5 %; Nucleated Red Blood Cells % 0 %; Platelet Count 330 10^3/cmm (130-400); Red Blood Count 3.89 10^6/uL (4.1-5.3); Red Cell Distribution Width 14.9 % (12.1-15.1)
[2023-01-20] MEDS: LORazepam 2 mg/mL INJ 1 mL 0.5 MG IVP ×2 (08:50→19:01)
[2023-01-20 09:07] LABS: Alanine Aminotransferase 67 U/L (0-33); Albumin Level 2.9 g/dL (3.5-5.2); Alkaline Phosphatase 439 U/L (35-105); Anion Gap 20.9 (5-19); Aspartate Amino Transferase 90 U/L (0-32); Blood Urea Nitrogen 11 mg/dL (8-23); Calcium 8.3 mg/dL (8.5-10.5); Carbon Dioxide 20 mmol/L (22-29); Chloride 98 mmol/L (98-107); Creatinine Clr Calc Pharmacy 63.8484; Globulin 3.3 g/dL (1.3-4.6); Glucose 118 mg/dL (65-115); Osmolality Calculated 280 mOsm/kg (285-295); Potassium 3.9 mmol/L (3.5-5.1); Sodium 135 mmol/L (136-145); Total Bilirubin 1.1 mg/dL (0.15-1.2); Total Protein 6.2 g/dL (6.6-8.7)
[2023-01-20] MEDS: FUROsemide 10 mg/mL SDV 4mL 40 MG IVP (09:22)
--- NOTE | 2023-01-20 09:33 | CT_ITS ---
WS: [id number] CT CHEST ANGIOGRAPHY WITH REFORMATS HISTORY: sob TECHNIQUE: Contiguous axial images are obtained through the chest during arterial injection of intrav enous contrast. Images are reconstructed to evaluate the pulmonary arteries. MIP imaging also reviewe d. All CT scans at [facility] use at least one of these dose optimization techniques: automat ed exposure control; mA and/or kV adjustment per patient size (includes targeted exams where dose is matched to clinical indication); or iterative reconstruction. CONTRAST: Omnipaque 350; 69 mL IV. DLP: 384.55 mGy.cm COMPARISON: 10/25/[address] Motion artifact. Patient was unable to hold her breath for this examination. Good opacification of th e central pulmonary artery. There is no central pulmonary emboli despite the motion artifact. No embo li through the lobar branches. Some of the segmental branches are well visualized. Atherosclerosis ao rta with mild ectasia. Mild cardiac enlargement. No RIGHT heart strain. LEFT heart is enlarged. Motion artifact. Findings suspicious for mild pulmonary edema despite the motion artifact. Very small bilateral pleural effusions, RIGHT greater than LEFT. No pneumonia. Small but several LEFT subpector al muscle and axillary lymph nodes. Mildly progressed as compared to the prior study from 2021. Promi nent bilateral perihilar lymph nodes. Liver is enlarged. Incompletely visualized liver. There is a low-attenuation lesion in the liver. Pat ient has known metastatic disease to the liver. Indeterminate but suspicious for LEFT adrenal enlarge ment and possible mass. Thoracolumbar scoliosis. CT/CT angio chest PE protcl [id number] IMPRESSION: 1. Study is compromised by breathing motion artifact. 2. No central pulmonary embolism. 3. No RIGHT heart strain. 4. Patient has known metastatic disease to the liver. 5. Mildly enlarged LEFT subpectoralis and axillary lymph nodes. Metastatic rony bernice reactive. 6. No pneumonia. 7. Mild pulmonary edema suspected. 8. Small bilateral pleural effusions.
--- NOTE | 2023-01-20 10:15 | PC.NURSE ---
Patient to CT at this time.
--- NOTE | 2023-01-20 10:23 | PC.CHAP ---
Pastoral Care Encounter/Spiritual Assessment Type of Contact [] Declined security systems manager visit [] Patient/Family/Request visit [] Outpatient visit [] Follow-up visit [] Physician referral [] Code/Alert [] Routine visit [] Staff referral [] Actively dying [] Patient sleeping [] Family support [] [] Out of room [] Palliative care [] [] Receiving care in room [] Pre-surgical visit [] Trauma [] Long length of stay [] ICU visit [x] Other: Isolation Relational/Emotional Strength [] Patient feels connected with others/family/visitors/staff [] Distress [] Loneliness/isolation [] Abandonment Spirituality of Patient [] Person of [place] [] Attends Mandaen of their [place] [] Believes in Prayer [] Reads Bible or Samaritan materials [] There are Spiritual issues to be addressed Restorative Coordinator Interventions [] Prayer [] Active listening [] Non-anxious presence [] Spiritual/emotional support [] Crisis/trauma care [] Spiritual counseling [] Bereavement support [] Provided bereavement packet [] Provided Bible/devotional materials [] Provided toy/stuffed animal, coloring book to patient or family member [] Provided Communion [] Anointing/[place] [] Salvation [] Completed spiritual assessment [] Other: Impact on Illness or Injury [] Angry [] Fearful [] Anxious [] Often cries [] Exhaustion [] Unable to work [] Unable to attend zoroastrianism [] Unable to walk/stand [] Unable to read [] Unable to drive [] Unable to eat/drink [] Unable to sleep [] Unable to be with family [] Patient intubated [] Other: Summary Isolation Time spent with patient 5 mins
[2023-01-20] MEDS: iohexol 350 mg/mL 500 mL Btl (per mL) IV (10:38)
[2023-01-20] MEDS: apixaban 5 mg Tablet 2.5 MG PO ×2 (11:31→21:01)
[2023-01-20] MEDS: ipratropium-albuterol 3 mL Neb INHALATION ×2 (11:41→20:57)
--- NOTE | 2023-01-20 15:19 | P.PN_ITS ---
Subjective Subjective: Patient was seen and examined this morning, she was complaining of significant shortness of breath, IV fluid was discontinued, Bravo catheter was placed she received Lasix 40 IV one-time dose, with good urine output and improvement in shortness of breath, CTA chest and x-ray chest was done. Medications: Medication Review Details: Generic Name Dose Route Start Last Admin Trade Name Cliffq PRN Reason Stop Dose Admin Albuterol/Ipratrop ium 3 ml 01/20/23 12:00 01/20/23 11:41 Ipratropium-Albu terol 3 Ml Neb INHALATION 3 ml QID.RESPIRATORY S CH Administration Apixaban 2.5 mg 01/20/23 09:35 01/20/23 11:31 Apixaban 5 Mg Ta blet PO 2.5 mg BID@0900,2100 [facility] Administration Ascorbic Acid 500 mg 01/20/23 09:00 01/20/23 11:32 Ascorbic Acid 50 0 Mg Tablet PO Not Given DAILY JACKIE Aspirin 81 mg 01/20/23 09:00 01/20/23 11:32 Aspirin 81 Mg Ec Tablet PO Not Given DAILY [facility] Atorvastatin Calci um 40 mg 01/19/23 21:00 01/19/23 20:42 Atorvastatin 40 Mg Tablet PO 40 mg BEDTIME JACKIE Administration Calcium Carbonate 500 mg 01/20/23 09:00 01/20/23 11:32 Calcium Carbonat e 500 Mg Chew Tabl et PO Not Given DAILY [facility] Cyanocobalamin 5,000 mcg 01/20/23 09:00 01/20/23 11:32 Cyanocobalamin 1 ,000 Mcg Tablet PO Not Given DAILY [facility] Docusate Sodium 100 mg 01/20/23 09:00 01/20/23 11:32 Docusate Sodium 100 Mg Capsule PO Not Given BID JACKIE Ferrous Sulfate 325 mg 01/20/23 09:00 01/20/23 11:31 Ferrous Sulfate Ec 325 Mg Tablet PO Not Given DAILY [facility] Furosemide 40 mg 01/20/23 08:45 01/20/23 09:22 Furosemide 10 Mg /Ml Sdv 4ml IVP 40 mg Q24H JACKIE Administration Meropenem 1,000 mg / Sodium 50 mls @ 100 mls/ hr 01/20/23 02:00 01/20/23 11:48 Chloride IV Infused Q8H [facility] Infusion Protocol Vancomycin/PEG/NAD A/Lysine/Water 1,250 mg in 250 m ls @ 250 mls/hr 01/19/23 20:30 01/20/23 11:33 Vancocin IV Infused Q12H JACKIE Infusion Lorazepam 0.5 mg 01/20/23 08:41 01/20/23 08:50 Lorazepam 2 Mg/M l Inj 1 Ml IVP 0.5 mg Q4H PRN Administration ANXIETY Non-Formulary Medi cation 1 tab 01/20/23 09:00 01/20/23 11:31 Irsoochn-Peh-Gx- Lycopen-Lutein PO Not Given DAILY JACKIE Vitamin D 1,000 unit 01/20/23 09:00 01/20/23 11:32 Cholecalciferol (Vitamin D3) 1,000 Unit Tablet PO Not Given DAILY JACKIE Vitals/I&O/Wt Last Vital Signs Temp 99.6 F 01/20/23 12:00 Pulse 100 01/20/23 12:00 Resp 20 H 01/20/23 12:00 BP 168/92 01/20/23 12:00 Pulse Ox 97 01/20/23 12:00 O2 Del Method Nasal Cannula 01/20/23 12:00 O2 Flow Rate 3 01/20/23 11:51 01/20/23 01/20/23 01/20/23 06:59 14:59 22:59 Intake Total 1050 / 2350 1460 / 1460 Balance 1050 / 2350 1460 / 1460 Weight last 48 hrs Weight 68.039 kg Physical Exam Const: COMMON NORMALS: patient oriented x3 HENMT: COMMON NORMALS: normocephalic and atraumatic HEAD & SCALP: normocephalic and atraumatic Resp: COMMON NORMALS: clear to auscultation bilaterally AUSCULTATION: clear to auscultation bilaterally Cardio: COMMON NORMALS: regular rate, regular rhythm, S1 normal heart sound present, S2 normal heart sound present, No gallops present (Cardio), No murmurs present (Cardio), No rub (Cardio) and Peripheral pulses 2+ throughout RATE: regular rate RHYTHM: regular rhythm HEART SOUNDS: S1 normal heart sound present and S2 normal heart sound present PERIPHERAL PULSES: Peripheral pulses 2+ throughout GI: COMMON NORMALS: Soft to palpation and non-tender AUSCULTATION: Yes normoactive bowel sounds PALPATION: Yes Soft to palpation RECTAL EXAM: deferred OTHER: Distended abdomen, with normal bowel sounds Extremity: NARRATIVE EXTREMITY EXAM: 1-2+ bilateral lower extremity pitting Neuro: COMMON NORMALS: patient oriented x3 Data 01/20/23 08:30 01/20/23 08:30 Micro: Microbiology 01/19/23 16:47 Blood Culture - Preliminary Blood SPECIMEN COLLECTED 01/19/23 16:41 Blood Culture - Preliminary Blood SPECIMEN COLLECTED A&P Assessment and plan (1) Primary bladder transitional cell carcinoma: (2) Primary adenocarcinoma of ascending colon: (3) Hypertension: (4) DVT (deep venous thrombosis): (5) Bilateral pulmonary embolism: (6) CVA (cerebral vascular accident): (7) Elevated lactic acid level: Plan 2 year old female with past medical history significant for extensive malignancy which includes CA bladder, CA:colon, currently CT abdomen and pelvis is showing Multiple metastatic foci throughout the liver, somewhat increased in size compared to prior exam, [facility] Came in today after she was not feeling well overall after the discharge, today in the ER she is complaining of generalized weakness, overall not feeling well ,bilateral lower extremity swelling, Assessment: Generalized weakness: Significant leukocytosis Elevated lactic acid History of Ca bladder History of colon cancer History of DVT History of pulmonary embolism History of CVA Constipation Pulmonary edema Plan: CTA chest: No central pulmonary embolism. Mild pulmonary edema small bilateral pleural effusion X-ray chest: Diffuse interstitial reticular nodular infiltrates throughout both lungs. This may represent interstitial pneumonia or interstitial pulmonary edema. CT abdomen and pelvis is showing?Multiple metastatic foci throughout the liver, somewhat increased in size compared to prior exam. Hepatomegaly Follow blood culture, urine culture X-ray chest: Currently she is empirically on broad-spectrum antibiotics vancomycin and meropenem Was on IV hydration Continue Eliquis Monitor CBC, obtain peripheral blood smear Continue IV Lasix 40 daily Oncology on board CODE STATUS: Full code DVT prophylaxis: On Eliquis Attestations Medical Necessity Statement*: Needs to be in hospital for management of significant weakness. Coding Level of Care Code Acute Code for Chg Fwd Diagnoses Primary bladder transitional cell carcinoma C67.9 Primary adenocarcinoma of ascending colon C18.2 Hypertension I10 DVT (deep venous thrombosis) I82.409 Bilateral pulmonary embolism I26.99 CVA (cerebral vascular accident) I63.9 Elevated lactic acid level R79.89
--- NOTE | 2023-01-20 17:04 | US_ITS ---
WS: [id number] ULTRASOUND SOFT TISSUES RIGHT posterior thorax. HISTORY: Swelling COMPARISON: CT 01/20/2023. TECHNIQUE: 2-D and color Doppler imaging is submitted. Soft tissue edema but no mass identified. Ultrasound is directed in the region of the RIGHT axilla al serafin the posterior RIGHT ribs is directed. No fluid collections or mass. US/US soft tissue/extremity [id number] IMPRESSION: Soft tissue edema but no mass.
[2023-01-20] MEDS: atorvastatin 40 mg Tablet PO (21:02)
[2023-01-21] VITALS: BP 99/51; PULSE 92; RESP 15; TEMP 36.6; O2SAT 97
[2023-01-21] MEDS: meropenem 1,000 MG in sodium chloride 0.9% (plus) 50 ML 100 MG IV (01:19)
[2023-01-21 04:00] VITALS: BP 117/73; PULSE 90; RESP 16; TEMP 36.3; O2SAT 99
[2023-01-21 05:05] LABS: Basophils # 0.1 10^3/uL (0.0-0.1); Basophils % 0.3 %; Eosinophils # 0.3 10^3/uL (0.0-0.8); Eosinophils % 0.8 %; Hematocrit 31.6 % (37.0-47.0); Hemoglobin 9.8 g/dL (11.5-15.3); Lymphocytes # 1.5 10^3/uL (0.8-4.8); Lymphocytes % 4.6 %; Mean Corpuscular Hemoglobin 27.7 pg (28.0-34.0); Mean Corpuscular Volume 89.3 fl (81-99); Mean Platelet Volume 9.8 fL (7.4-10.4); Monocytes # 1.7 10^3/uL (0.2-0.9); Monocytes % 5.3 %; Neutrophils # 28.54 10^3/uL (1.8-7.7); Neutrophils % 87.9 %; Nucleated Red Blood Cells % 0 %; Platelet Count 251 10^3/cmm (130-400); Red Blood Count 3.54 10^6/uL (4.1-5.3); Red Cell Distribution Width 14.9 % (12.1-15.1)
[2023-01-21 05:29] LABS: Lactate (Lactic Acid level) 2.2 mmol/L (0.5-2.2)
[2023-01-21 05:36] LABS: Alanine Aminotransferase 63 U/L (0-33); Albumin Level 2.7 g/dL (3.5-5.2); Alkaline Phosphatase 376 U/L (35-105); Blood Urea Nitrogen 12 mg/dL (8-23); Calcium 8.1 mg/dL (8.5-10.5); Carbon Dioxide 23 mmol/L (22-29); Chloride 97 mmol/L (98-107); Creatinine Clr Calc Pharmacy 63.8484; Globulin 2.8 g/dL (1.3-4.6); Glucose 107 mg/dL (65-115); Osmolality Calculated 276 mOsm/kg (285-295); Sodium 133 mmol/L (136-145); Total Bilirubin 1.1 mg/dL (0.15-1.2); Total Protein 5.5 g/dL (6.6-8.7)
[2023-01-21 05:40] LABS: Anion Gap 17.2 (5-19); Aspartate Amino Transferase 98 U/L (0-32); Potassium 4.2 mmol/L (3.5-5.1)
[2023-01-21 05:41] LABS: White Blood Count 32.5 10^3/uL (4.0-10.0)
[2023-01-21] MEDS: LORazepam 2 mg/mL INJ 1 mL 0.5 MG IVP (06:10)
[2023-01-21 08:00] VITALS: BP 117/82; PULSE 121; RESP 34; TEMP 36.2; O2SAT 98
--- NOTE | 2023-01-21 08:41 | P.PNCC_ITS ---
Critical Care Event Note Responded to overhead CODE BLUE page. Upon arrival in room Dr. 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 I intubated the patient as noted. Remainder of care and documentation per Dr. Dumont. Lakhwinder Walton MD Emergency Medicine Critical Care Time Code activated: Yes Critical Care Time (min): 0 Procedures Intubation Laryngoscope: fiber optic video scope ET tube size: 8 ET tube uncuffed: No Tube secured depth (cm): 22 Tube secured location: teeth Tube placement confirmation: visualized tube passing through cords, equal breath sounds bilaterally and color change noted Patient tolerated procedure: no complications Additional comments: 1st attempt by Dr Dumont, I performed 2nd attempt with successful intubation. Coding Level of Care Code Acute Code for Chg Fwd
[2023-01-21 09:06] LABS: Glucose Point of Care 126 mg/dL (70-110)
--- NOTE | 2023-01-21 09:32 | PC.NURSE ---
Addendum entered by Irma Simons RN 01/21/23 12:22: Compressions started at 0824 3 rounds of epi, 1 atropine, 1 bicarb given during code. Intubation occurred at 0830 by ER physician. Original Note: Code note: This nurse was called in the room by JAVA ARCHITECT's due to the patient not responding to the . Patient was unresponsive and not breathing. No pulse palpable or auscultated at that time by this nurse. CPR initiated. Code was called. Patient agonal breathing and PEA on the monitor during pulse check. ROSC not obtainable and consulted with the who was at the nurses station at the time when to stop the code. wanted to stop and CPR was stopped. Final pulse check was PEA. Time of 08.
--- NOTE | 2023-01-21 10:41 | PC.NURSE ---
checked on family. Doing ok no needs at this time
[2023-01-21 11:39] VITALS: BP 117/82; PULSE 121; RESP 34; TEMP 36.2; O2SAT 98
--- NOTE | 2023-01-21 12:12 | PC.NURSE ---
post mortem care provided saline flush to eyes and hob elevated to 30 degrees per [facility] donation.
--- NOTE | 2023-01-22 14:39 | P.DES_ITS ---
Discharge Providers DDS Date of Admission: 01/19/23 18:37 Date Summary Completed: 01/22/23 Attending Provider at Admission: Rashel Dumont MD Attending Provider at Discharge: Rashel Dumont MD Primary Care Provider: DO CLIFF Mckeon Diagnoses Hospital Diagnoses (1) Primary bladder transitional cell carcinoma: (2) Primary adenocarcinoma of ascending colon: (3) Hypertension: (4) DVT (deep venous thrombosis): (5) Bilateral pulmonary embolism: (6) CVA (cerebral vascular accident): (7) Elevated lactic acid level: Reason for Visit Reason for Visit sent by Richards/cancer pt Summary Summary Summary: ?72 year old female with past medical history significant for extensive malignancy which includes CA bladder, CA:colon, currently CT abdomen and pelvis is showing?Multiple metastatic foci throughout the liver, somewhat increased in size compared to prior exam was admitted with chief complaint of ?generalized weakness, overall not feeling well ,bilateral lower extremity swelling, on admission she also had significant leukocytosis, elevated lactic acid, she was empirically started on broad-spectrum antibiotics, IV fluids, cultures were sent, next day after admission patient started complaining significant shortness of breath in the morning, x-ray chest was obtained: Which showed Diffuse inters titial reticular nodular infiltrates throughout both lungs. This may represent interstitial pneumonia or interstitial pulmonary edema, CTA chest was obtained to rule out pulmonary embolism: Not a good quality study but failed to show any central pulmonary embolism,Mild pulmonary edema, patient was started on IV Lasix, initially she had good response to Lasix, shortness of breath today improved, she was continued on, IV antibiotics, thinking the possibility of, pneumonia, on the morning of 01/21, Patient again had an episode of significant shortness of breath, for which BiPAP was ordered, unfortunately patient quickly, deteriorated, CODE BLUE was called as, she was unresponsive, initial rhythm was PEA arrest, high-quality CPR was initiated, code was carried out as per ACLS protocol, she received epinephrine bicarb, no shocks were administered, she was also intubated during the code, by Dr. conroy, during the code, was, updated, and given her overall extremely poor prognosis, due to her underlying, extensive malignancy, he decided to, not to continue with the resuscitation, CODE BLUE was stopped, patient , at 8:33 AM. Additional Data Advance directives?: Yes Discharge Plan Discharge Patient Disposition: Condition: Stable Prescriptions: Discontinued calcium carbonate [Calcium 500] 500 mg calcium (1,250 mg) tablet,chewable 500 mg PO DAILY Eliquis 2.5 mg tablet 2.5 mg PO BID oxycodone 10 mg tablet 10 mg PO QID PRN (Reason: Pain) potassium chloride 20 mEq tablet extended release 20 meq PO DAILY 3 Days Qty: 30 0RF Rx Instructions: then PRN Protonix 40 mg tablet,delayed release (DR/EC) 40 mg PO DAILY Qty: 90 2RF atorvastatin 40 mg tablet 40 mg PO BEDTIME Qty: 90 3RF aspirin 81 mg Tablet,Delayed Release (Dr/Ec) 81 mg PO DAILY 30 Days Qty: 30 3RF ascorbic acid (vitamin C) [Vitamin C] 500 mg Tablet 500 mg PO DAILY cyanocobalamin (vitamin B-12) [Vitamin B-12] 2,000 mcg Tablet Extended Release 5,000 mcg PO DAILY cholecalciferol (vitamin D3) [Vitamin D3] 25 mcg (1,000 unit) Capsule 25 mcg PO DAILY kvqobbqm-foh-MB-lycopen-lutein 0.4 mg-300 mcg- 250 mcg Tablet 1 tab PO DAILY Glucosamine Chondroitin 550-30-1 mg Capsule 1 cap PO DAILY rjibffg-wovj-otxms-oreg-capryl 100 mg-150 mg- 50 mg-150 mg Capsule 1 cap PO DAILY Iron (ferrous sulfate) 325 mg (65 mg iron) Tablet 325 mg PO DAILY Referrals: Alexus Flowers DO [Primary Care Provider] - Patient Instructions: Opioid Safety Probable Cause of Probable cause of : Cardiac arrest DS Attestations Time Spent in /Discharge Care*: less than 30 min Quality - AMI: AMI present?: No Quality - Stroke: CVA present?: No Quality - VTE: VTE present?: No Coding Level of Care Code Acute Code for Chg Fwd Diagnoses Primary bladder transitional cell carcinoma C67.9 Primary adenocarcinoma of ascending colon C18.2 Hypertension I10 DVT (deep venous thrombosis) I82.409 Bilateral pulmonary embolism I26.99 CVA (cerebral vascular accident) I63.9 Elevated lactic acid level R79.89
== END 2023-01-21 13:00 | disposition expired | DRG 686 ==
LOC: ER 15:12 → MEDSURG 18:38
PROVIDERS: Admitting Provider Internal Medicine; Emergency Provider Family Medicine; PCP Family Medicine; Visit Provider Internal Medicine
DX: J18.9 Pneumonia, unspecified organism (principal); C78.7 Secondary malignant neoplasm of liver and intrahepatic bile duct; J81.1 Chronic pulmonary edema; C67.9 Malignant neoplasm of bladder, unspecified; R53.1 Weakness; K59.00 Constipation, unspecified; I46.9 Cardiac arrest, cause unspecified; E78.5 Hyperlipidemia, unspecified; Z85.038 Personal history of other malignant neoplasm of large intestine; Z86.718 Personal history of other venous thrombosis and embolism; Z86.711 Personal history of pulmonary embolism; Z79.01 Long term (current) use of anticoagulants; Z79.82 Long term (current) use of aspirin; Z87.891 Personal history of nicotine dependence
CPT/HCPCS: 31500; 36415; 36416; 71045; 71275; 74177; 76882; 80053; 81001; 82140; 82962; 83605; 83690; 85025; 85610; 85730; 86301; 87040; 87086; 87493; 87506; 94640; 96365; 99214; 99285; J0171; J0461; J1940; J2060; J2185; J3370; J3475; J3490; J7030; Q9967